=== PATIENT | male | born 1945 | race American Indian/Alaskan Native ===

== ENCOUNTER 2016-03-13 09:56 | Outpatient (CLI) | payer MEDICARE, OTHER ==
[2016-03-13 11:03] LABS: Calcium 8.7 mg/dL (8.4-10.2); Chloride 105.7 mmol/L (98-107); Potassium 5.4 mmol/L (3.6-5.0)
== END 2016-03-13 09:57 | disposition home or self-care (01) ==
LOC: LAB 09:56
PROVIDERS: ATTEND Internal Medicine Nephrology
DX: N17.9 Acute kidney failure, unspecified (principal); N28.1 Cyst of kidney, acquired; R94.4 Abnormal results of kidney function studies; R60.9 Edema, unspecified
CPT/HCPCS: 36415; 80048; 83930

== ENCOUNTER 2017-10-06 05:43 | Inpatient (IN) | payer MEDICARE, OTHER ==
[2017-10-06 08:54] LABS: Basophils % (Auto) 0.3 % (0.0-1.8); Eosinophils % (Auto) 0.5 % (0.0-4.3); Hemoglobin 13.9 gm/dl (11.8-15.2); Lymphocytes # (Auto) 0.4 K/mm3 (1.2-5.4); Lymphocytes % (Auto) 5.5 % (13.4-35.0); Mean Corpuscular HGB Conc 33 % (32-34); Mean Corpuscular Hemoglobin 32 pg (28-32); Mean Corpuscular Volume 97 fl (84-94); Monocytes # (Auto) 0.5 K/mm3 (0.0-0.8); Monocytes % (Auto) 7.5 % (0.0-7.3); Platelet Count 201 K/mm3 (140-440); Red Blood Count 4.32 M/mm3 (3.65-5.03); Red Cell Distribution Width 13.3 % (13.2-15.2)
[2017-10-06 09:20] LABS: BUN/Creatinine Ratio 16; Blood Urea Nitrogen 40 mg/dL (9-20); Calcium 9.8 mg/dL (8.4-10.2); Hemolysis Index 11
--- NOTE | 2017-10-06 11:08 | Emergency Department Report ---
HPI - General Chief Complaint: Chest Pain Time Seen by Provider: 10/06/17 10:44 - HPI HPI: Room 9 The patient is 72-year-old male presenting with the chief complaint pain and abdominal pain. The patient states he was in his usual state of health until yesterday began developing substernal chest pain described as twisting in nature and epigastric pain described as cramping. Patient states he also began noticing frequent output from his ileostomy (nonbloody). Patient is to nausea but denies vomiting. Patient denies any history of fever. The patient states he still has chest pain and gives a_of 2/10. 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 Oscar, Tracheostomy, AARDS, Ventilator, Sepsis - Surgical History Past Surgical History?: Yes Hx Appendectomy: Yes Additional Surgical History: Ileostomy, IVC filter - Family History Family history: no significant - Social History Smoking Status: Never Smoker Substance Use Type: None (denies illicit drug use) - Medications Home Medications: Home Medications Medication Instructions Recorded Confirmed Last Taken Type Calcitriol 1 tab PO DAILY 12/12/14 10/06/17 10/05/17 History Cholecalciferol (Vitamin D3) 1,000 unit PO DAILY 10/06/17 10/06/17 10/05/17 History [Vitamin D3] Multivitamin with Folic Acid [One 400 mcg PO DAILY 10/06/17 10/06/17 10/05/17 History Daily Multivitamin Tablet] Ranitidine HCl [Heartburn Relief] 150 mg PO BID 10/06/17 10/06/17 10/05/17 History Sodium Bicarbonate 650 mg PO BID 10/06/17 10/06/17 10/05/17 History ED Review of Systems ROS: Stated complaint: DIZZINESS/CHEST PAIN Other details as noted in HPI Constitutional: denies: fever Eyes: denies: eye pain ENT: denies: throat pain Respiratory: no symptoms reported Cardiovascular: chest pain Endocrine: unexplained weight loss (25 pound weight loss over 6 months) Gastrointestinal: abdominal pain, nausea, other (increased ileostomy output). denies: vomiting Genitourinary: denies: dysuria Musculoskeletal: denies: back pain Neurological: denies: headache Physical Exam - Physical Exam Vital Signs: Vital Signs 10/06/17 06:08 Temperature 98.5 F Pulse Rate 100 H Respiratory 20 Rate Blood Pressure 138/94 O2 Sat by Pulse 97 Oximetry Physical Exam: GENERAL: The patient is well-developed well-nourished male sitting on stretcher not appearing to be in acute distress. [] HEENT: Normocephalic. Atraumatic. Extraocular motions are intact. Patient has moist mucous membranes. NECK: Supple. Trachea midline CHEST/LUNGS: Clear to auscultation. There is no respiratory distress noted. HEART/CARDIOVASCULAR: Regular. There is no tachycardia. There is no gallop rub or murmur. ABDOMEN: Abdomen is soft, with discomfort to palpation in the suprapubic and left lower quadrant. Patient has hyperactive bowel sounds. There is no abdominal distention. SKIN: There is no rash. There is no edema. There is no diaphoresis. NEURO: The patient is awake, alert, and oriented. The patient is cooperative. The patient has normal speech MUSCULOSKELETAL: There is no evidence of acute injury. ED Course Vital Signs 10/06/17 06:08 Temperature 98.5 F Pulse Rate 100 H Respiratory 20 Rate Blood Pressure 138/94 O2 Sat by Pulse 97 Oximetry ED Medical Decision Making - Lab Data Result diagrams: 10/06/17 07:42 10/06/17 07:42 Laboratory Tests 10/06/17 10/06/17 10/06/17 07:42 07:42 09:28 WBC 6.8 RBC 4.32 Hgb 13.9 Hct 42.0 MCV 97 H MCH 32 MCHC 33 RDW 13.3 Plt Count 201 Lymph % (Auto) 5.5 L [place] % (Auto) 7.5 H Eos % (Auto) 0.5 Baso % (Auto) 0.3 Lymph # 0.4 L [place] # 0.5 Eos # 0.0 Baso # 0.0 Seg Neutrophils % 86.2 H Seg Neutrophils # 5.9 D-Dimer Sodium 141 Potassium 4.6 Chloride 103.8 Carbon Dioxide 18 L Anion Gap 24 BUN 40 H Creatinine 2.5 H Estimated GFR 31 BUN/Creatinine Ratio 16 Glucose 95 Calcium 9.8 Troponin T < 0.010 < 0.010 10/06/17 10/06/17 11:04 12:53 WBC RBC Hgb Hct MCV MCH MCHC RDW Plt Count Lymph % (Auto) [place] % (Auto) Eos % (Auto) Baso % (Auto) Lymph # [place] # Eos # Baso # Seg Neutrophils % Seg Neutrophils # D-Dimer 600.73 H Sodium Potassium Chloride Carbon Dioxide Anion Gap BUN Creatinine Estimated GFR BUN/Creatinine Ratio Glucose Calcium Troponin T < 0.010 - EKG Data -: EKG Interpreted by Mn EKG shows normal: sinus rhythm Rate: normal (100 bpm) - EKG Data When compared to previous EKG there are: previous EKG unavailable Interpretation: nonspecific ST-T wave radha (T-wave inversion in lead aVL) - Radiology Data Radiology results: report reviewed (CT abdomen and pelvis, CT chest, VQ scan), image reviewed (CT abdomen and pelvis, CT chest, VQ scan) [place] [id number] Cat Scan Report Signed Patient: BALDMEAR MURPHY MR#: [id number] : 1945 Acct:[id number] Age/Sex: 72 / M ADM Date: 10/06/17 Loc: ED Attending Dr: Ordering Physician: RONNI AMATO MD Date of Service: 10/06/17 Procedure(s): CT chest wo con Accession Number(s): [id number] cc: RONNI AMATO MD CT CHEST WITHOUT CONTRAST: HISTORY: Chest pain, ascending aortic aneurysm. COMPARISON: none. TECHNIQUE: Helical CT in 1.25mm intervals without IV contrast. Sagittal and coronal reformatted images. FINDINGS: Thyroid gland: Normal. Tracheobronchial tree: Normal. Esophagus: Normal. Heart: Normal. Pericardium: Normal. Mediastinum : The ascending aorta measures up to 3.9 cm in diameter. The descending thoracic aorta measures 3.1 cm at the same level. The aortic arch measures 3.4 cm. There are mild diffuse aortic calcifications. No evidence for mediastinal mass or adenopathy. Lung Green: Within normal limits. Pleural Spaces: Normal. Musculoskeletal: Mild thoracic spondylosis. IMPRESSION: No acute cardiopulmonary process. The ascending aorta measures 3.9 cm in diameter. Transcribed By: TTR Dictated By: ISABEL HILARIO JR, MD Electronically Authenticated By: ISABEL HILARIO JR, MD Signed Date/Time: 10/06/171146 DD/ 44 TD/TT: 10/06/17 114 [facility] [address] [place] [address] Cat Scan Report Signed Patient: BALDEMAR MURPHY MR#: [id number] : 1945 Acct:[id number] Age/Sex: 72 / M ADM Date: 10/06/17 Loc: ED Attending Dr: Ordering Physician: RONNI AMATO MD Date of Service: 10/06/17 Procedure(s): CT abdomen pelvis wo con Accession Number(s): [id number] cc: RONNI AMATO MD CT ABDOMEN PELVIS WITHOUT CONTRAST: HISTORY: Epigastric pain, increased ileostomy output. COMPARISON: none. TECHNIQUE: Helical CT in 1.25mm intervals without IV contrast. Sagittal and coronal reconstructions. FINDINGS: Liver: Normal. Biliary system: Normal. Pancreas: Normal. Spleen: Normal. Kidneys/ureters/ bladder: Both kidneys are slightly atrophic measuring 8-9 cm in length. A 5 cm exophytic cyst from this inferior pole of the right kidney is noted. No evidence for calculus or hydronephrosis. The ureters and bladder are unremarkable. Adrenal glands: Normal. Aorta: Mild diffuse calcifications. An IVC filter is noted below the renal veins. Intestines: Limited without oral contrast. Colectomy changes with left lower quadrant ileostomy are suspected. No evidence for bowel obstruction or focal inflammation. There is a small right inguinal hernia containing a short segment of small bowel but no evidence for obstruction or inflammation. Appendix: Not identified. Pelvic viscera: Normal. Ascites: None. Adenopathy: None. Musculoskeletal: Moderate thoracolumbar spondylosis. Mild levoscoliosis of the lumbar region. Previous ventral wall hernia repair changes are identified. No recurrent hernia is appreciated in this area. IMPRESSION: No acute abdominal process is identified. Surgical changes as described. Small right inguinal hernia containing a short segment of small bowel. Mild renal atrophy. Right renal cyst. Transcribed By: TTR Dictated By: ISABEL HILARIO JR, MD Electronically Authenticated By: ISABEL HILARIO JR, MD Signed Date/Time: 10/06/17 1151 DD/ 1148 TD/TT: 10/06/17 1151 [facility] [address] [place] [address] Nuclear Medicine Report Signed Patient: BALDEMAR MURPHY MR#: [id number] : 05/1945 Acct:[id number] Age/Sex: 72 / M ADM Date: 10/06/17 Loc: ED Attending Dr: Ordering Physician: RONNI AMATO MD Date of Service: 10/06/17 Procedure(s): NM lung scan perf/vent Accession Number(s): [id number] cc: RONNI AMATO MD LUNG SCAN, VENTILATION AND PERFUSION: History: Chest pain. Technique: 5mci of Tc99m MAA was infused for the perfusion images. 15mci XE 133 gas was inhaled for the ventilatory images. Correlation is made with a chest x-ray dated 10/06/17. Findings: Inhalation of Xenon gas demonstrates a normal distribution of the activity throughout both lungs. The wash out phases show no focal retention of activity. After injection of Technetium 99m macroaggregated albumin gamma camera imaging of the lungs in multiple projections demonstrates normal pulmonary contours with a homogeneous distribution of activity. No focal areas of perfusion deficiency are identified. IMPRESSION: Low probability for pulmonary embolus. Transcribed By: TTR Dictated By: ISABEL HILARIO JR, MD Electronically Authenticated By: ISABEL HILARIO JR, MD Signed Date/Time: 1345 DD/ 1344 TD/TT: 10/06/17 1345 - Differential Diagnosis gastritis, ACS, pericarditis, GERD Critical care attestation.: If time is entered above; I have spent that time in minutes in the direct care of this critically ill patient, excluding procedure time. ED Disposition Clinical Impression: Chest pain, Increased ileostomy output, Abdominal pain Disposition: DC-09 OP ADMIT IP TO THIS HOSP Is pt being admited?: Yes Does the pt Need Aspirin: Yes Condition: Fair Instructions: Chest Pain (ED) Referrals: PRIMARY CARE,MD [Primary Care Provider] - 3-5 Days Time of Disposition: 14:10 (hospitalist paged (Dr Brown))
--- NOTE | 2017-10-06 11:54 | Cat Scan Report ---
CT CHEST WITHOUT CONTRAST: HISTORY: Chest pain, ascending aortic aneurysm. COMPARISON: none. TECHNIQUE: Helical CT in 1.25mm intervals without IV contrast. Sagittal and coronal reformatted images. FINDINGS: Thyroid gland: Normal. Tracheobronchial tree: Normal. Esophagus: Normal. Heart: Normal. Pericardium: Normal. Mediastinum: The ascending aorta measures up to 3.9 cm in diameter. The descending thoracic aorta measures 3.1 cm at the same level. The aortic arch measures 3.4 cm. There are mild diffuse aortic calcifications. No evidence for mediastinal mass or adenopathy. Lung Green: Within normal limits. Pleural Spaces: Normal. Musculoskeletal: Mild thoracic spondylosis. IMPRESSION: No acute cardiopulmonary process. The ascending aorta measures 3.9 cm in diameter.
--- NOTE | 2017-10-06 11:58 | Cat Scan Report ---
CT ABDOMEN PELVIS WITHOUT CONTRAST: HISTORY: Epigastric pain, increased ileostomy output. COMPARISON: none. TECHNIQUE: Helical CT in 1.25mm intervals without IV contrast. Sagittal and coronal reconstructions. FINDINGS: Liver: Normal. Biliary system: Normal. Pancreas: Normal. Spleen: Normal. Kidneys/ureters/bladder: Both kidneys are slightly atrophic measuring 8-9 cm in length. A 5 cm exophytic cyst from this inferior pole of the right kidney is noted. No evidence for calculus or hydronephrosis. The ureters and bladder are unremarkable. Adrenal glands: Normal. Aorta: Mild diffuse calcifications. An IVC filter is noted below the renal veins. Intestines: Limited without oral contrast. Colectomy changes with left lower quadrant ileostomy are suspected. No evidence for bowel obstruction or focal inflammation. There is a small right inguinal hernia containing a short segment of small bowel but no evidence for obstruction or inflammation. Appendix: Not identified. Pelvic viscera: Normal. Ascites: None. Adenopathy: None. Musculoskeletal: Moderate thoracolumbar spondylosis. Mild levoscoliosis of the lumbar region. Previous ventral wall hernia repair changes are identified. No recurrent hernia is appreciated in this area. IMPRESSION: No acute abdominal process is identified. Surgical changes as described. Small right inguinal hernia containing a short segment of small bowel. Mild renal atrophy. Right renal cyst.
--- NOTE | 2017-10-06 12:59 | XRay Report ---
AP CHEST: HISTORY: chest pain AP view of the chest demonstrates a normal mediastinal and cardiac contour with clear lungs and normal bony and soft tissue structures. IMPRESSION: No acute cardiopulmonary process.
--- NOTE | 2017-10-06 13:51 | Nuclear Medicine Report ---
LUNG SCAN, VENTILATION AND PERFUSION: History: Chest pain. Technique: 5mci of Tc99m MAA was infused for the perfusion images. 15mci XE 133 gas was inhaled for the ventilatory images. Correlation is made with a chest x-ray dated 10/06/17. Findings: Inhalation of Xenon gas demonstrates a normal distribution of the activity throughout both lungs. The wash out phases show no focal retention of activity. After injection of Technetium 99m macroaggregated albumin gamma camera imaging of the lungs in multiple projections demonstrates normal pulmonary contours with a homogeneous distribution of activity. No focal areas of perfusion deficiency are identified. IMPRESSION: Low probability for pulmonary embolus.
[2017-10-06] MEDS ORDERED: PLAVIX PO ONE (14:13)
[2017-10-06] MEDS: NACL 0.9% 1000 ML 1,000 ML IV SCH (16:05)
[2017-10-06] MEDS ORDERED: PERCOCET 5/325 PO PRN (19:49)
[2017-10-06] MEDS ORDERED: MORPHINE IV PRN (19:49)
[2017-10-06] MEDS ORDERED: SODIUM CHLORIDE FLUSH SYRINGE 10 ML IV PRN (19:49)
[2017-10-06] MEDS ORDERED: ZOFRAN IV PRN (19:49)
--- NOTE | 2017-10-06 19:49 | History and Physical Report ---
History of Present Illness Date of examination: 10/06/17 Medications and Allergies Allergies Allergy/AdvReac Type Severity Reaction Status Date / Time gabapentin Allergy Rash Verified 12/12/14 16:07 pregabalin [From Lyrica] Allergy Rash Verified 12/12/14 16:07 soy Allergy Unknown Verified 02/19/16 11:03 Iodinated Contrast- Oral and AdvReac Swelling Verified 12/12/14 16:35 IV Dye [Iodinated Contrast Media - IV Dye] Home Medications Medication Instructions Recorded Confirmed Last Taken Type Calcitriol 1 tab PO DAILY 12/12/14 10/06/17 10/05/17 History Cholecalciferol (Vitamin D3) 1,000 unit PO DAILY 10/06/17 10/06/17 10/05/17 History [Vitamin D3] Multivitamin with Folic Acid [One 400 mcg PO DAILY 10/06/17 10/06/17 10/05/17 History Daily Multivitamin Tablet] Ranitidine HCl [Heartburn Relief] 150 mg PO BID 10/06/17 10/06/17 10/05/17 History Sodium Bicarbonate 650 mg PO BID 10/06/17 10/06/17 10/05/17 History Active Meds: Active Medications Sodium Chloride (Nacl 0.9% 1000 Ml) 1,000 mls @ 100 mls/hr IV DIRECT MIMI Last Admin: 10/06/17 16:05 Dose: 100 mls/hr Exam - Constitutional Vitals: Temp Pulse Resp BP Pulse Ox 98.5 F 75 18 176/109 97 10/06/17 06:08 10/06/17 18:00 10/06/17 18:00 10/06/17 18:00 10/06/17 18:00 Results - Labs CBC & Chem 7: 10/06/17 07:42 10/06/17 07:42 Labs: Laboratory Last Values WBC 6.8 K/mm3 (4.5-11.0) 10/06/17 07:42 RBC 4.32 M/mm3 (3.65-5.03) 10/06/17 07:42 Hgb 13.9 gm/dl (11.8-15.2) 10/06/17 07:42 Hct 42.0 % (35.5-45.6) 10/06/17 07:42 MCV 97 fl (84-94) H 10/06/17 07:42 MCH 32 pg (28-32) 10/06/17 07:42 MCHC 33 % (32-34) 10/06/17 07:42 RDW 13.3 % (13.2-15.2) 10/06/17 07:42 Plt Count 201 K/mm3 (140-440) 10/06/17 07:42 Lymph % (Auto) 5.5 % (13.4-35.0) L 10/06/17 07:42 [place] % (Auto) 7.5 % (0.0-7.3) H 10/06/17 07:42 Eos % (Auto) 0.5 % (0.0-4.3) 10/06/17 07:42 Baso % (Auto) 0.3 % (0.0-1.8) 10/06/17 07:42 Lymph # 0.4 K/mm3 (1.2-5.4) L 10/06/17 07:42 [place] # 0.5 K/mm3 (0.0-0.8) 10/06/17 07:42 Eos # 0.0 K/mm3 (0.0-0.4) 10/06/17 07:42 Baso # 0.0 K/mm3 (0.0-0.1) 10/06/17 07:42 Seg Neutrophils % 86.2 % (40.0-70.0) H 10/06/17 07:42 Seg Neutrophils # 5.9 K/mm3 (1.8-7.7) 10/06/17 07:42 D-Dimer 600.73 ng/mlDDU (0-234) H 10/06/17 11:04 Sodium 141 mmol/L (137-145) 10/06/17 07:42 Potassium 4.6 mmol/L (3.6-5.0) 10/06/17 07:42 Chloride 103.8 mmol/L (98-107) 10/06/17 07:42 Carbon Dioxide 18 mmol/L (22-30) L 10/06/17 07:42 Anion Gap 24 mmol/L 10/06/17 07:42 BUN 40 mg/dL (9-20) H 10/06/17 07:42 Creatinine 2.5 mg/dL (0.8-1.5) H 10/06/17 07:42 Estimated GFR 31 ml/min 10/06/17 07:42 BUN/Creatinine Ratio 16 % 10/06/17 07:42 Glucose 95 mg/dL (75-100) 10/06/17 07:42 Calcium 9.8 mg/dL (8.4-10.2) 10/06/17 07:42 Troponin T < 0.010 ng/mL (0.00-0.029) 10/06/17 12:53
[2017-10-06] MEDS: LIORESAL PO SCH (21:20)
[2017-10-06] MEDS ORDERED: PEPCID PO SCH (22:00)
[2017-10-06] MEDS: SODIUM CHLORIDE FLUSH SYRINGE 10 ML IV SCH (22:16)
[2017-10-07] MEDS: NACL 0.9% 1000 ML 1,000 ML IV SCH (05:25)
[2017-10-07 05:33] LABS: Hematocrit 39.5 % (35.5-45.6); Hemoglobin 13.2 gm/dl (11.8-15.2); Mean Corpuscular HGB Conc 33 % (32-34); Mean Corpuscular Hemoglobin 32 pg (28-32); Mean Corpuscular Volume 97 fl (84-94); Platelet Count 166 K/mm3 (140-440); Red Blood Count 4.09 M/mm3 (3.65-5.03); Red Cell Distribution Width 13.3 % (13.2-15.2)
[2017-10-07 06:16] LABS: Albumin 4.1 g/dL (3.9-5); Calcium 9.3 mg/dL (8.4-10.2)
--- NOTE | 2017-10-07 06:48 | Event Note ---
Date: 10/06/17 See Dictated H/pin reports Chest pain r/o LA protocol High output in Ileostomy bag Acute on CKD
[2017-10-07] MEDS: LIORESAL PO SCH ×3 (08:00→21:08)
--- NOTE | 2017-10-07 09:00 | Gastroenterology Consultation ---
<PUMA FLORES - Last Filed: 10/07/17 09:24> History of Present Illness - Reason for Consult Consult date: 10/07/17 high output ileostomy Requesting physician: TORREY JOINER - History of Present Illness Patient is a 72 y/o male with PMH of HTN, MA (), DVT (s/p IVC filter), GERD , CKD, arthritis, and COPD who presented to ED yesterday with c/o substernal CP described as twisting in nature and epigastric pain described as cramping, along with some nausea and increased non-bloody output from his ileostomy x [address] chest negative for PE. Cardiac enzymes negative. Stress test planned for tomorrow. Abd CT negative for obstruction or inflammation. This morning patient was resting in bed w/o acute distress. He reports feeling better with CP , epigastric pain, and nausea now resolved. No vomiting. Tolerated diet yesterday afternoon. Still has increased output (greenish non-bloody) from ileostomy but seems to be decreasing as well. He states he underwent a total colectomy by Dr. Russell in 1998 due to hx of UC with revision in 2006 (ischemic bowel? and 2012. Also has a hx of GERD on ranitidine at home. Last EGD a couple of months ago at [facility] per patient with results showing no ulcer or H pylori. Denies fever, wt loss, SOB, dizziness, dysphagia, odynophagia, or signs of bleeding. No recent abx therapy, travel, or ill contacts. Past History Past Medical History: arthritis, CAD, COPD, GERD, hypertension, other (DVT, CKD ) Past Surgical History: appendectomy, bowel surgery (total colectomy with ileostomy (revision 2006 & 2012), IVC filter) Social history: denies: smoking, alcohol abuse, IV drug use Family history: no significant family history Medications and Allergies Allergies Allergy/AdvReac Type Severity Reaction Status Date / Time gabapentin Allergy Rash Verified 12/12/14 16:07 pregabalin [From Lyrica] Allergy Rash Verified 12/12/14 16:07 soy Allergy Unknown Verified 02/19/16 11:03 Iodinated Contrast- Oral and AdvReac Swelling Verified 12/12/14 16:35 IV Dye [Iodinated Contrast Media - IV Dye] Home Medications Medication Instructions Recorded Confirmed Last Taken Type Calcitriol 1 tab PO DAILY 12/12/14 10/06/17 10/05/17 History Cholecalciferol (Vitamin D3) 1,000 unit PO DAILY 10/06/17 10/06/17 10/05/17 History [Vitamin D3] Multivitamin with Folic Acid [One 400 mcg PO DAILY 10/06/17 10/06/17 10/05/17 History Daily Multivitamin Tablet] Ranitidine HCl [Heartburn Relief] 150 mg PO BID 10/06/17 10/06/17 10/05/17 History Sodium Bicarbonate 650 mg PO BID 10/06/17 10/06/17 10/05/17 History Active Meds: Active Medications Acetaminophen (Tylenol) 650 mg PO Q4H PRN PRN Reason: Pain MILD(1-3)/Fever >100.5/ROSS Baclofen (Lioresal) 10 mg PO TID [facility] Last Admin: 10/06/17 21:20 Dose: Not Given Calcitriol (Rocaltrol) 0.25 mcg PO DAILY [facility] Enoxaparin Sodium (Lovenox) 30 mg SUB-Q QDAY [facility] Famotidine (Pepcid) 20 mg PO QDAY [facility] Famotidine (Pepcid) 20 mg PO BID [facility] Sodium Chloride (Nacl 0.9% 1000 Ml) 1,000 mls @ 100 mls/hr IV DIRECT [facility] Last Admin: 10/07/17 05:25 Dose: 100 mls/hr Morphine Sulfate (Morphine) 2 mg IV Q4H PRN PRN Reason: Pain, Moderate (4-6) Ondansetron HCl (Zofran) 4 mg IV Q8H PRN PRN Reason: Nausea And Vomiting Oxycodone/Acetaminophen (Percocet 5/325) 1 tab PO Q6H PRN PRN Reason: Pain, Moderate (4-6) Last Admin: 10/06/17 22:05 Dose: 1 tab Sodium Bicarbonate (Sodium Bicarbonate) 650 mg PO BID [facility] Sodium Chloride (Sodium Chloride Flush Syringe 10 Ml) 10 ml IV BID [facility] Last Admin: 10/06/17 22:16 Dose: 10 ml Sodium Chloride (Sodium Chloride Flush Syringe 10 Ml) 10 ml IV PRN PRN PRN Reason: LINE FLUSH Review of Systems - Review of Systems All systems: negative Cardiovascular: chest pain Gastrointestinal: abdominal pain, nausea, other (increased ileostomy output) Exam - Constitutional Vital Signs: Temp Pulse Resp BP Pulse Ox 98.5 F 64 20 136/97 97 10/07/17 07:30 10/07/17 07:30 10/07/17 07:30 10/07/17 07:30 10/07/17 07:30 General appearance: no acute distress - EENT Eyes: PERRL, EOM intact ENT: hearing intact - Respiratory Respiratory: bilateral: CTA - Cardiovascular Rhythm: regular Heart Sounds: Present: S1 & S2 - Gastrointestinal General gastrointestinal: Present: soft, non-tender, non-distended, normal bowel sounds, other (+ ileostomy, + scars from previous surgeries) - Neurologic Neurological: alert and oriented x3 - Labs CBC & Chem 7: 10/07/17 04:23 10/07/17 04:23 Lab Results: Laboratory Results - last 24 hr 10/06/17 10/06/17 10/06/17 07:42 09:28 11:04 WBC RBC Hgb Hct MCV MCH MCHC RDW Plt Count Worth % (Auto) D-Dimer 600.73 H Sodium 141 Potassium 4.6 Chloride 103.8 Carbon Dioxide 18 L Anion Gap 24 BUN 40 H Creatinine 2.5 H Estimated GFR 31 BUN/Creatinine Ratio 16 Glucose 95 Hemoglobin A1c Calcium 9.8 Total Bilirubin AST ALT Alkaline Phosphatase Troponin T < 0.010 < 0.010 Total Protein Albumin Albumin/Globulin Ratio 10/06/17 10/06/17 10/06/17 12:53 20:16 20:16 WBC RBC Hgb Hct MCV MCH MCHC RDW Plt Count [place] % (Auto) D-Dimer Sodium Potassium Chloride Carbon Dioxide Anion Gap BUN Creatinine Estimated GFR BUN/Creatinine Ratio Glucose Hemoglobin A1c 5.3 Calcium Total Bilirubin AST ALT Alkaline Phosphatase Troponin T < 0.010 < 0.010 Total Protein Albumin Albumin/Globulin Ratio 10/07/17 10/07/17 10/07/17 01:38 04:23 04:23 WBC 3.9 L RBC 4.09 Hgb 13.2 Hct 39.5 MCV 97 H MCH 32 MCHC 33 RDW 13.3 Plt Count 166 Worth % (Auto) Professor Of Kinesiology D-Dimer Sodium 139 Potassium 4.4 Chloride 107.9 H Carbon Dioxide 16 L Anion Gap 20 BUN 41 H Creatinine 2.4 H Estimated GFR 32 BUN/Creatinine Ratio 17 Glucose 80 Hemoglobin A1c Calcium 9.3 Total Bilirubin 0.80 AST 25 ALT 19 Alkaline Phosphatase 103 Troponin T < 0.010 Total Protein 7.6 Albumin 4.1 Albumin/Globulin Ratio 1.2 Assessment and Plan 1.increased ileostomy output 2.epigastric pain 3.nausea 4.CP- CT chest negative, stress test pending for tomorrow -afebrile -WBC 3.9 -abd CT negative for obstruction or inflammation -etiology- most likely 2/2 gastroenteritis -will order stool studies to r/o infection -clinically patient is feeling better with with epigastric pain and nausea now resolved. Increased non-bloody output from ileostomy still present but starting to decrease -okay to resume diet -monitor ileostomy output -continue pepcid and supportive care -will follow <MOIRA MICHELLE - Last Filed: 10/07/17 12:41> Medications and Allergies Active Meds: Active Medications Acetaminophen (Tylenol) 650 mg PO Q4H PRN PRN Reason: Pain MILD(1-3)/Fever >100.5/ROSS Baclofen (Lioresal) 10 mg PO TID [facility] Last Admin: 10/07/17 08:00 Dose: Not Given Calcitriol (Rocaltrol) 0.25 mcg PO DAILY [facility] Last Admin: 10/07/17 10:29 Dose: Not Given Enoxaparin Sodium (Lovenox) 30 mg SUB-Q QDAY [facility] Last Admin: 10/07/17 09:53 Dose: Not Given Famotidine (Pepcid) 20 mg PO QDAY [facility] Last Admin: 10/07/17 10:28 Dose: Not Given Famotidine (Pepcid) 20 mg PO BID [facility] Last Admin: 10/07/17 10:29 Dose: Not Given Morphine Sulfate (Morphine) 2 mg IV Q4H PRN PRN Reason: Pain, Moderate (4-6) Ondansetron HCl (Zofran) 4 mg IV Q8H PRN PRN Reason: Nausea And Vomiting Oxycodone/Acetaminophen (Percocet 5/325) 1 tab PO Q6H PRN PRN Reason: Pain, Moderate (4-6) Last Admin: 10/06/17 22:05 Dose: 1 tab Sodium Bicarbonate (Sodium Bicarbonate) 650 mg PO BID [facility] Last Admin: 10/07/17 10:29 Dose: Not Given Sodium Chloride (Sodium Chloride Flush Syringe 10 Ml) 10 ml IV BID [facility] Last Admin: 10/07/17 10:29 Dose: Not Given Sodium Chloride (Sodium Chloride Flush Syringe 10 Ml) 10 ml IV PRN PRN PRN Reason: LINE FLUSH Exam - Constitutional Vital Signs: Temp Pulse Resp BP Pulse Ox 97.9 F 86 22 138/90 97 10/07/17 12:20 10/07/17 12:20 10/07/17 12:20 10/07/17 12:20 10/07/17 07:30 - Labs CBC & Chem 7: 10/07/17 04:23 10/07/17 04:23 Lab Results: Laboratory Results - last 24 hr 10/06/17 10/06/17 10/06/17 12:53 20:16 20:16 WBC RBC Hgb Hct MCV MCH MCHC RDW Plt Count Worth % (Auto) Add Manual Diff Total Counted Seg Neuts % (Manual) Band Neutrophils % Lymphocytes % (Manual) Reactive Lymphs % (Man) Monocytes % (Manual) Eosinophils % (Manual) Basophils % (Manual) Metamyelocytes % Myelocytes % Promyelocytes % Blast Cells % Nucleated RBC % Seg Neutrophils # Man Band Neutrophils # Lymphocytes # (Manual) Abs React Lymphs (Man) Monocytes # (Manual) Eosinophils # (Manual) Basophils # (Manual) Metamyelocytes # Myelocytes # Promyelocytes # Blast Cells # WBC Morphology Hypersegmented Neuts Hyposegmented Neuts Hypogranular Neuts Smudge Cells Toxic Granulation Toxic Vacuolation Dohle Bodies Pelger-Huet Anomaly Jose C Rods Platelet Estimate Clumped Platelets Plt Clumps, EDTA Large Platelets Giant Platelets Platelet Satelliting Plt Morphology Comment RBC Morphology Dimorphic RBCs Polychromasia Hypochromasia Poikilocytosis Anisocytosis Microcytosis Macrocytosis Spherocytes Pappenheimer Bodies Sickle Cells Target Cells Tear Drop Cells Ovalocytes Helmet Cells Juares-Fall[place] Bodies [place] Rings Heidy Cells Bite Cells Crenated Cell Elliptocytes Acanthocytes (Spur) Rouleaux Hemoglobin C Crystals Schistocytes Malaria parasites Tigre Bodies Hem Pathologist Commnt Sodium Potassium Chloride Carbon Dioxide Anion Gap BUN Creatinine Estimated GFR BUN/Creatinine Ratio Glucose Hemoglobin A1c 5.3 Calcium Total Bilirubin AST ALT Alkaline Phosphatase Troponin T < 0.010 < 0.010 Total Protein Albumin Albumin/Globulin Ratio Urine Color Urine Turbidity Urine pH Ur Specific [place] Urine Protein Urine Glucose (UA) Urine Ketones Urine Blood Urine Nitrite Urine Bilirubin Urine Urobilinogen Ur Leukocyte Esterase Urine WBC (Auto) Urine RBC (Auto) Granular Casts Urine Mucus Urine Creatinine Urine Sodium Urine Total Protein 10/07/17 10/07/17 10/07/17 01:38 04:23 04:23 WBC 3.9 L RBC 4.09 Hgb 13.2 Hct 39.5 MCV 97 H MCH 32 MCHC 33 RDW 13.3 Plt Count 166 Worth % (Auto) Professor Of Kinesiology Add Manual Diff Complete Total Counted 100 Seg Neuts % (Manual) 59.0 Band Neutrophils % 1.0 Lymphocytes % (Manual) 19.0 Reactive Lymphs % (Man) 1.0 Monocytes % (Manual) 15.0 H Eosinophils % (Manual) 4.0 Basophils % (Manual) 1.0 Metamyelocytes % 0 Myelocytes % 0 Promyelocytes % 0 Blast Cells % 0 Nucleated RBC % Not Reportable Seg Neutrophils # Man 2.3 Band Neutrophils # 0.0 Lymphocytes # (Manual) 0.7 L Abs React Lymphs (Man) 0.0 Monocytes # (Manual) 0.6 Eosinophils # (Manual) 0.2 Basophils # (Manual) 0.0 Metamyelocytes # 0.0 Myelocytes # 0.0 Promyelocytes # 0.0 Blast Cells # 0.0 WBC Morphology Not Reportable Hypersegmented Neuts Not Reportable Hyposegmented Neuts Not Reportable Hypogranular Neuts Not Reportable Smudge Cells Not Reportable Toxic Granulation Not Reportable Toxic Vacuolation Not Reportable Dohle Bodies Not Reportable Pelger-Huet Anomaly Not Reportable Jose C Rods Not Reportable Platelet Estimate Consistent w auto Clumped Platelets Not Reportable Plt Clumps, EDTA Not Reportable Large Platelets Not Reportable Giant Platelets Not Reportable Platelet Satelliting Not Reportable Plt Morphology Comment Not Reportable RBC Morphology Normal Dimorphic RBCs Not Reportable Polychromasia Not Reportable Hypochromasia Not Reportable Poikilocytosis Not Reportable Anisocytosis Not Reportable Microcytosis Not Reportable Macrocytosis Not Reportable Spherocytes Not Reportable Pappenheimer Bodies Not Reportable Sickle Cells Not Reportable Target Cells Not Reportable Tear Drop Cells Not Reportable Ovalocytes Not Reportable Helmet Cells Not Reportable Juares-[place] Bodies Not Reportable [place] Rings Not Reportable Heidy Cells Not Reportable Bite Cells Not Reportable Crenated Cell Not Reportable Elliptocytes Not Reportable Acanthocytes (Spur) Not Reportable Rouleaux Not Reportable Hemoglobin C Crystals Not Reportable Schistocytes Not Reportable Malaria parasites Not Reportable Tigre Bodies Not Reportable Hem Pathologist Commnt No Sodium 139 Potassium 4.4 Chloride 107.9 H Carbon Dioxide 16 L Anion Gap 20 BUN 41 H Creatinine 2.4 H Estimated GFR 32 BUN/Creatinine Ratio 17 Glucose 80 Hemoglobin A1c Calcium 9.3 Total Bilirubin 0.80 AST 25 ALT 19 Alkaline Phosphatase 103 Troponin T < 0.010 Total Protein 7.6 Albumin 4.1 Albumin/Globulin Ratio 1.2 Urine Color Urine Turbidity Urine pH Ur Specific [place] Urine Protein Urine Glucose (UA) Urine Ketones Urine Blood Urine Nitrite Urine Bilirubin Urine Urobilinogen Ur Leukocyte Esterase Urine WBC (Auto) Urine RBC (Auto) Granular Casts Urine Mucus Urine Creatinine Urine Sodium Urine Total Protein 10/07/17 10/07/17 10/07/17 09:16 10:19 10:19 WBC RBC Hgb Hct MCV MCH MCHC RDW Plt Count [place] % (Auto) Add Manual Diff Total Counted Seg Neuts % (Manual) Band Neutrophils % Lymphocytes % (Manual) Reactive Lymphs % (Man) Monocytes % (Manual) Eosinophils % (Manual) Basophils % (Manual) Metamyelocytes % Myelocytes % Promyelocytes % Blast Cells % Nucleated RBC % Seg Neutrophils # Man Band Neutrophils # Lymphocytes # (Manual) Abs React Lymphs (Man) Monocytes # (Manual) Eosinophils # (Manual) Basophils # (Manual) Metamyelocytes # Myelocytes # Promyelocytes # Blast Cells # WBC Morphology Hypersegmented Neuts Hyposegmented Neuts Hypogranular Neuts Smudge Cells Toxic Granulation Toxic Vacuolation Dohle Bodies Pelger-Huet Anomaly Jose C Rods Platelet Estimate Clumped Platelets Plt Clumps, EDTA Large Platelets Giant Platelets Platelet Satelliting Plt Morphology Comment RBC Morphology Dimorphic RBCs Polychromasia Hypochromasia Poikilocytosis Anisocytosis Microcytosis Macrocytosis Spherocytes Pappenheimer Bodies Sickle Cells Target Cells Tear Drop Cells Ovalocytes Helmet Cells Juares-Fallon Bodies [place] Rings Heidy Cells Bite Cells Crenated Cell Elliptocytes Acanthocytes (Spur) Rouleaux Hemoglobin C Crystals Schistocytes Malaria parasites Tigre Bodies Hem Pathologist Commnt Sodium Potassium Chloride Carbon Dioxide Anion Gap BUN Creatinine Estimated GFR BUN/Creatinine Ratio Glucose Hemoglobin A1c Calcium Total Bilirubin AST ALT Alkaline Phosphatase Troponin T < 0.010 Total Protein Albumin Albumin/Globulin Ratio Urine Color Yellow Urine Turbidity Clear Urine pH 5.0 Ur Specific [place] 1.017 Urine Protein 100 mg/dl Urine Glucose (UA) Neg Urine Ketones Neg Urine Blood Sm Urine Nitrite Neg Urine Bilirubin Neg Urine Urobilinogen < 2.0 Ur Leukocyte Esterase Neg Urine WBC (Auto) 1.0 Urine RBC (Auto) < 1.0 Granular Casts 4 Urine Mucus Few Urine Creatinine 136.4 H Urine Sodium 82 Urine Total Protein 178 H Assessment and Plan - Patient Problems (1) Increased ileostomy output Current Visit: Yes Status: Acute Plan to address problem: The patient was seen and examined. I suspect an acute gastroenteritis. Await stool studies. If stool studies negative, may add anti diarrheal medications.
--- NOTE | 2017-10-07 09:26 | Consultation ---
History of Present Illness - History of Present Illness Thank you for the consultation ! History of present illness: Patient is a 72-year-old -Portuguese male who is currently established our clinic for his chronic kidney disease care and was last seen in April 2017 when his creatinine was around 2.5, previously his creatinine used to be a 4.6 in January 2016 however with ongoing care he has been doing well. Patient also suffers from frequent. On 400 mg vitamin D deficiency secondary hyperparathyroidism as well as anemia and chronic kidney disease which has improved over time Currently he has been admitted here with high output ileostomy difficult. Metabolic acidosis requiring renal consultation, patient denies using any follow -up anti-inflammatory drug he was told by his be a inside sales advisor separately that his kidney failure could be due to interstitial nephritis but no biopsy was planned he also concurrently suffers from metabolic acidosis chronic intermittent hyponatremia also has a renal cyst and hyperuricemia Past medical history significant for chronic kidney disease stage III anemia and chronic kidney disease, currently in remission Proteinuria under 500 mg Vitamin D deficiency secondary hyperparathyroidism last PTH 86 Hyperkalemia Hyponatremia Chronic metabolic acidosis Cyst of the kidney Hyperuricemia Current allergies: Seafood Iodine Lyrica Medications: Reviewed Social history: Reviewed Family history: Reviewed Review of system: Positive for high output ileostomy since last 3-4 days Abdominal pain All other review of systems negative Physical examination General: No acute distress HEENT: Oral mucosa dry no pharyngeal erythema no nasal bleeding Neck: Supple no evidence of any jugular venous distention no masses Chest: Clear to auscultation anteriorly and posteriorly Heart: Regular rate and rhythm S1 and S2 heard no S3-S4 or any pericardial rub Abdomen: Soft nontender bowel sounds present no renal bruit no suprapubic masses no CVA tenderness, has ileostomy in place Extremity: Dry skin less than 1+ edema no peripheral petechial rashes Endocrine: Thyroid not enlarged Psychiatric: No evidence of any agitation or aggression noted Musculoskeletal: No joint effusion noted Lab studies and pertinent imagings were reviewed My assessment and plan are as follows Patient was evaluated today around 9:30 in the morning my assessment and plan are as follows Chronic kidney disease: Patient's creatinine was around 2.8-3.0 even in 2015 Renal failure of moderate severity in a patient who is 72-year-old and has some risk factors for underlying chronic kidney disease clinically appears to be prerenal Will order for workup urine as well as blood work as well as a renal ultrasound, hydration for now and follow patient was having increased output from the ileostomy, he will need hydration as tolerated Chest pain currently being ruled out for myocardial infarction High output ileostomy: GI following monitor electrolytes phosphorus etc. Metabolic acidosis that requires correction to a bicarbonate of about 20-24 patient will need bicarbonate infusion, this most likely was resulting from GI losses CT scan of the abdomen pelvis obtained October 06 inguinal hernia with a short segment of small bowel adrenal gland reported normal, Multiple underlying comorbidities including hypertension, [place] 1979, DVT, GERD, chronic kidney disease, arthritis, COPD Status post colectomy total in 1998 due to ulcerative colitis with revision in 2006 in 2012 Renal prognosis guarded at this time Patient was adequately counseled and educated regarding all the renal related issues Renal prognosis remains guarded at this time to follow, necessary labs and imagings will be honored as indicated by the clinical course We'll continue to follow and make recommendation from renal standpoint Thank you for the consultation. Medications and Allergies Allergies Allergy/AdvReac Type Severity Reaction Status Date / Time gabapentin Allergy Rash Verified 12/12/14 16:07 pregabalin [From Lyrica] Allergy Rash Verified 12/12/14 16:07 soy Allergy Unknown Verified 02/19/16 11:03 Iodinated Contrast- Oral and AdvReac Swelling Verified 12/12/14 16:35 IV Dye [Iodinated Contrast Media - IV Dye] Home Medications Medication Instructions Recorded Confirmed Last Taken Type Calcitriol 1 tab PO DAILY 12/12/14 10/06/17 10/05/17 History Cholecalciferol (Vitamin D3) 1,000 unit PO DAILY 10/06/17 10/06/17 10/05/17 History [Vitamin D3] Multivitamin with Folic Acid [One 400 mcg PO DAILY 10/06/17 10/06/17 10/05/17 History Daily Multivitamin Tablet] Ranitidine HCl [Heartburn Relief] 150 mg PO BID 10/06/17 10/06/17 10/05/17 History Sodium Bicarbonate 650 mg PO BID 10/06/17 10/06/17 10/05/17 History Active Meds: Active Medications Acetaminophen (Tylenol) 650 mg PO Q4H PRN PRN Reason: Pain MILD(1-3)/Fever >100.5/ROSS Baclofen (Lioresal) 10 mg PO TID [facility] Last Admin: 10/06/17 21:20 Dose: Not Given Calcitriol (Rocaltrol) 0.25 mcg PO DAILY [facility] Enoxaparin Sodium (Lovenox) 30 mg SUB-Q QDAY [facility] Famotidine (Pepcid) 20 mg PO QDAY [facility] Famotidine (Pepcid) 20 mg PO BID [facility] Sodium Chloride (Nacl 0.9% 1000 Ml) 1,000 mls @ 100 mls/hr IV DIRECT [facility] Last Admin: 10/07/17 05:25 Dose: 100 mls/hr Morphine Sulfate (Morphine) 2 mg IV Q4H PRN PRN Reason: Pain, Moderate (4-6) Ondansetron HCl (Zofran) 4 mg IV Q8H PRN PRN Reason: Nausea And Vomiting Oxycodone/Acetaminophen (Percocet 5/325) 1 tab PO Q6H PRN PRN Reason: Pain, Moderate (4-6) Last Admin: 10/06/17 22:05 Dose: 1 tab Sodium Bicarbonate (Sodium Bicarbonate) 650 mg PO BID [facility] Sodium Chloride (Sodium Chloride Flush Syringe 10 Ml) 10 ml IV BID [facility] Last Admin: 10/06/17 22:16 Dose: 10 ml Sodium Chloride (Sodium Chloride Flush Syringe 10 Ml) 10 ml IV PRN PRN PRN Reason: LINE FLUSH Exam - Vital Signs Vital signs: Vital Signs Temp Pulse Resp BP Pulse Ox 98.5 F 100 H 20 138/94 97 10/06/17 06:08 10/06/17 06:08 10/06/17 06:08 10/06/17 06:08 10/06/17 06:08 Results - Lab Results 10/07/17 04:23 10/07/17 04:23 Most recent lab results Calcium 9.3 mg/dL (8.4-10.2) 10/07/17 04:23
--- NOTE | 2017-10-07 09:42 | History and Physical Report ---
CHIEF COMPLAINT: Chest pain and abdominal pain. One-day duration. HISTORY OF PRESENT ILLNESS: A 72-year-old black male with history of ulcerative colitis status post colectomy and permanent ileostomy bag, comes in for substernal chest pain since yesterday. Chest pain is ____. Pain is about 5 on a scale of 1-10. Also epigastric pain off and on. Also increased output in the ileostomy bag for the last 3-4 days. Not on any antibiotics. He has muscle cramping in the abdominal wall. No shortness of breath. The patient did not have any cardiac workup recently. The patient also has IVC filter. PAST MEDICAL HISTORY: Significant for hypertension, coronary artery disease, deep vein thrombosis, gastroesophageal reflux disease, chronic kidney disease, arthritis and COPD. Also, aortic aneurysm about 4.2 cm. PAST SURGICAL HISTORY: Ileostomy and IVC filter, appendectomy in the past. FAMILY HISTORY: Hypertension. SOCIAL HISTORY: Does not smoke. No alcohol, no recreational drugs. CURRENT MEDICATIONS: Vitamin D, ranitidine, sodium bicarbonate and calcitriol. Calcitriol 1 tablet daily, vitamin D3 1000 units daily, ranitidine 150 mg twice a day, sodium bicarbonate 650 mg twice a day. REVIEW OF SYSTEMS: Significant for chest pain and epigastric pain and increased output in the ileostomy bag. PHYSICAL EXAMINATION: GENERAL: Elderly male, cooperative during examination. VITAL SIGNS: Blood pressure is 126/88, temperature is 98.2, pulse is 83, respirations are 17, sats are 94%. HEENT: Unremarkable. Pupils equal and reactive. NECK: Supple, no lymphadenopathy, no thyromegaly. LUNGS: Clear to auscultation and percussion. Good air entry. CARDIOVASCULAR: S1, S2 heard. No gallop, no murmur, no rub. Apical impulse in left fifth intercostal space and midclavicular line. ABDOMEN: Soft and benign. No hepatosplenomegaly. No guarding, no rigidity. Ileostomy bag present. Increased output in the ileostomy bag. EXTREMITIES: Normal. CENTRAL NERVOUS SYSTEM: Alert and oriented x 4, nonfocal exam. LABORATORY DATA AND DIAGNOSTIC STUDIES: White count is normal. H and H is 13.9 and 42.0. Sodium is 141, potassium is 4.6, chloride is 104, bicarbonate is 18, BUN and creatinine 40 and 2.5. Troponin is 0.010. A1c is 5.3. EKG normal sinus rhythm, no acute ST-T wave changes. Abdominal CAT scan, no acute abdominal process. Surgical changes are described. Small right inguinal hernia containing a short segment of small bowel. CT chest, ascending aorta measures 3.9 cm. Otherwise, normal CT chest. ASSESSMENT AND PLAN: 1. Chest pain, rule out myocardial infarction, chest pain protocol. Lexiscan in the morning. Serial cardiac enzymes. 2. Chronic kidney disease and possible acute on chronic renal failure. IV fluids for the time being. Nephrology consult requested. 3. Gastroesophageal reflux disease. Continue ranitidine. Muscle spasms. Muscle relaxers for the time being. 4. Vitamin D deficiency. Continue vitamin D. 5. Deep venous thrombosis prophylaxis, Lovenox 30 mg subcutaneous daily. In summary, the patient needs chest pain rule out IN protocol and also GI consult for high output ileostomy bag to be taken into consideration. JOB# [id number] VSM/JENN
[2017-10-07] MEDS ORDERED: LOVENOX SUB-Q SCH (10:00)
[2017-10-07] MEDS: PEPCID PO SCH ×3 (10:28→21:10)
[2017-10-07] MEDS: SODIUM CHLORIDE FLUSH SYRINGE 10 ML IV SCH ×2 (10:29→21:10)
[2017-10-07] MEDS: ROCALTROL PO SCH (10:29)
[2017-10-07] MEDS: SODIUM BICARBONATE PO SCH ×2 (10:29→21:09)
[2017-10-07 10:43] LABS: Total Cells Counted 100
[2017-10-07 10:44] LABS: Platelet Estimate Consistent w Auto; RBC Morphology Normal
[2017-10-07 11:27] LABS: Creatinine,Urine 136.4 mg/dL (0.1-20.0)
[2017-10-07 11:31] LABS: Bilirubin,Urine NEG (Negative); Blood,Urine SM (Negative); Color,Urine Yellow (Yellow); Granular Casts,Urine 4 /LPF; Mucus,Urine FEW /HPF; RBC,Urine < 1.0 /HPF (0.0-6.0); Urobilinogen,Urine < 2.0 mg/dL (<2.0)
[2017-10-07] MEDS: TYLENOL PO PRN (15:40)
--- NOTE | 2017-10-07 16:46 | Progress Note ---
Assessment and Plan Assessment and plan: Patient is a 72 yo man with history of hypertension, CAD/[place] (), DVT (s/p IVC filter), GERD, CKD, arthritis, COPD, Ulcerative Colitis s/p total colectomy who presented with CP and abdominal pains along with some nausea and increased non-bloody output from his ileostomy x [address] chest negative for PE. Cardiac enzymes negative. Stress test planned for tomorrow. Abd CT negative for obstruction or inflammation. He states he underwent a total colectomy by Dr. Russell in 1998 due to hx of UC with revision in 2006 (ischemic bowel? and 2013. Also has a hx of GERD on ranitidine at home. Last EGD a couple of months ago at [place] per patient with results showing no ulcer or H pylori. -Increased ileostomy output suspect an acute gastroenteritis: Await stool studies. If stool studies negative, may add anti diarrheal medications. -Chest pains: stress test in am -GERD: treat with PPI -ANISA/CKD 3, vasomotor nephropathy: nephrology is following, treat with bicarbonate -Vitamin D deficiency: supplement -DVt prophylaxis: sq heparin, he refused lovenox -Metabolic acidosis that requires correction to a bicarbonate of about 20-24 patient will need bicarbonate infusion, this most likely was resulting from GI losses -Status post colectomy total in 1998 due to ulcerative colitis with revision in 2006 in 2012 Renal prognosis guarded at this time History Interval history: Patient was seen and examined. Follow-up on current diagnosis, chest pain, resolved at the moment. Overnight uneventful. Patient denies any chest pain, shortness breath, nausea/vomiting or severe headaches. Imaging, nursing note, chart, labs and old chart reviewed. Discussed with patient. Hospitalist Physical - Physical exam Narrative exam: GEN: WDWN, NAD, Awake, Alert, Orientated x 3 HEENT: NCAT, EOMI, PERRL, OP Clear NECK: supple, no adenopathy, no thyromegaly, no JVD CVS/HEART: RRR, normal S1S2, pulses present bilaterally CHEST/LUNGS: CTA B, Symmetrical chest expansion, good air entry bilaterally GI/Abdomen: soft, NTND, left sided colostomy good bowel sounds, no guarding or rebound /Bladder: no suprapubic tenderness, no CVA or paraspinal tenderness EXT/Skin: no c/c/e, no obvious rash MSK: FROM x 4 Neuro: CN 2-12 grossly intact, no new focal deficits Psych: calm - Constitutional Vitals: Temp Pulse Resp BP Pulse Ox 97.9 F 86 20 138/90 97 10/07/17 12:20 10/07/17 12:20 10/07/17 15:40 10/07/17 12:20 10/07/17 07:30 Results - Labs CBC & Chem 7: 10/07/17 04:23 10/07/17 04:23 Labs: Laboratory Last Values WBC 3.9 K/mm3 (4.5-11.0) L 10/07/17 04:23 RBC 4.09 M/mm3 (3.65-5.03) 10/07/17 04:23 Hgb 13.2 gm/dl (11.8-15.2) 10/07/17 04:23 Hct 39.5 % (35.5-45.6) 10/07/17 04:23 MCV 97 fl (84-94) H 10/07/17 04:23 MCH 32 pg (28-32) 10/07/17 04:23 MCHC 33 % (32-34) 10/07/17 04:23 RDW 13.3 % (13.2-15.2) 10/07/17 04:23 Plt Count 166 K/mm3 (140-440) 10/07/17 04:23 Lymph % (Auto) 5.5 % (13.4-35.0) L 10/06/17 07:42 [place] % (Auto) Loss Prevention Investigator 10/07/17 04:23 Eos % (Auto) 0.5 % (0.0-4.3) 10/06/17 07:42 Baso % (Auto) 0.3 % (0.0-1.8) 10/06/17 07:42 Lymph # 0.4 K/mm3 (1.2-5.4) L 10/06/17 07:42 [place] # 0.5 K/mm3 (0.0-0.8) 10/06/17 07:42 Eos # 0.0 K/mm3 (0.0-0.4) 10/06/17 07:42 Baso # 0.0 K/mm3 (0.0-0.1) 10/06/17 07:42 Add Manual Diff Complete 10/07/17 04:23 Total Counted 100 10/07/17 04:23 Seg Neutrophils % 86.2 % (40.0-70.0) H 10/06/17 07:42 Seg Neuts % (Manual) 59.0 % (40.0-70.0) 10/07/17 04:23 Band Neutrophils % 1.0 % 10/07/17 04:23 Lymphocytes % (Manual) 19.0 % (13.4-35.0) 10/07/17 04:23 Reactive Lymphs % (Man) 1.0 % 10/07/17 04:23 Monocytes % (Manual) 15.0 % (0.0-7.3) H 10/07/17 04:23 Eosinophils % (Manual) 4.0 % (0.0-4.3) 10/07/17 04:23 Basophils % (Manual) 1.0 % (0.0-1.8) 10/07/17 04:23 Metamyelocytes % 0 % 10/07/17 04:23 Myelocytes % 0 % 10/07/17 04:23 Promyelocytes % 0 % 10/07/17 04:23 Blast Cells % 0 % 10/07/17 04:23 Nucleated RBC % Not Reportable 10/07/17 04:23 Seg Neutrophils # 5.9 K/mm3 (1.8-7.7) 10/06/17 07:42 Seg Neutrophils # Man 2.3 K/mm3 (1.8-7.7) 10/07/17 04:23 Band Neutrophils # 0.0 K/mm3 10/07/17 04:23 Lymphocytes # (Manual) 0.7 K/mm3 (1.2-5.4) L 10/07/17 04:23 Abs React Lymphs (Man) 0.0 K/mm3 10/07/17 04:23 Monocytes # (Manual) 0.6 K/mm3 (0.0-0.8) 10/07/17 04:23 Eosinophils # (Manual) 0.2 K/mm3 (0.0-0.4) 10/07/17 04:23 Basophils # (Manual) 0.0 K/mm3 (0.0-0.1) 10/07/17 04:23 Metamyelocytes # 0.0 K/mm3 10/07/17 04:23 Myelocytes # 0.0 K/mm3 10/07/17 04:23 Promyelocytes # 0.0 K/mm3 10/07/17 04:23 Blast Cells # 0.0 K/mm3 10/07/17 04:23 WBC Morphology Not Reportable 10/07/17 04:23 Hypersegmented Neuts Not Reportable 10/07/17 04:23 Hyposegmented Neuts Not Reportable 10/07/17 04:23 Hypogranular Neuts Not Reportable 10/07/17 04:23 Smudge Cells Not Reportable 10/07/17 04:23 Toxic Granulation Not Reportable 10/07/17 04:23 Toxic Vacuolation Not Reportable 10/07/17 04:23 Dohle Bodies Not Reportable 10/07/17 04:23 Pelger-Huet Anomaly Not Reportable 10/07/17 04:23 Jose C Rods Not Reportable 10/07/17 04:23 Platelet Estimate Consistent w auto 10/07/17 04:23 Clumped Platelets Not Reportable 10/07/17 04:23 Plt Clumps, EDTA Not Reportable 10/07/17 04:23 Large Platelets Not Reportable 10/07/17 04:23 Giant Platelets Not Reportable 10/07/17 04:23 Platelet Satelliting Not Reportable 10/07/17 04:23 Plt Morphology Comment Not Reportable 10/07/17 04:23 RBC Morphology Normal 10/07/17 04:23 Dimorphic RBCs Not Reportable 10/07/17 04:23 Polychromasia Not Reportable 10/07/17 04:23 Hypochromasia Not Reportable 10/07/17 04:23 Poikilocytosis Not Reportable 10/07/17 04:23 Anisocytosis Not Reportable 10/07/17 04:23 Microcytosis Not Reportable 10/07/17 04:23 Macrocytosis Not Reportable 10/07/17 04:23 Spherocytes Not Reportable 10/07/17 04:23 Pappenheimer Bodies Not Reportable 10/07/17 04:23 Sickle Cells Not Reportable 10/07/17 04:23 Target Cells Not Reportable 10/07/17 04:23 Tear Drop Cells Not Reportable 10/07/17 04:23 Ovalocytes Not Reportable 10/07/17 04:23 Helmet Cells Not Reportable 10/07/17 04:23 Juares-Mcintosh Bodies Not Reportable 10/07/17 04:23 [place] Rings Not Reportable 10/07/17 04:23 [place] Cells Not Reportable 10/07/17 04:23 Bite Cells Not Reportable 10/07/17 04:23 Crenated Cell Not Reportable 10/07/17 04:23 Elliptocytes Not Reportable 10/07/17 04:23 Acanthocytes (Spur) Not Reportable 10/07/17 04:23 Rouleaux Not Reportable 10/07/17 04:23 Hemoglobin C Crystals Not Reportable 10/07/17 04:23 Schistocytes Not Reportable 10/07/17 04:23 Malaria parasites Not Reportable 10/07/17 04:23 [place]re Bodies Not Reportable 10/07/17 04:23 Hem Pathologist Commnt No 10/07/17 04:23 D-Dimer 600.73 ng/mlDDU (0-234) H 10/06/17 11:04 Sodium 139 mmol/L (137-145) 10/07/17 04:23 Potassium 4.4 mmol/L (3.6-5.0) 10/07/17 04:23 Chloride 107.9 mmol/L (98-107) H 10/07/17 04:23 Carbon Dioxide 16 mmol/L (22-30) L 10/07/17 04:23 Anion Gap 20 mmol/L 10/07/17 04:23 BUN 41 mg/dL (9-20) H 10/07/17 04:23 Creatinine 2.4 mg/dL (0.8-1.5) H 10/07/17 04:23 Estimated GFR 32 ml/min 10/07/17 04:23 BUN/Creatinine Ratio 17 % 10/07/17 04:23 Glucose 80 mg/dL (75-100) 10/07/17 04:23 Hemoglobin A1c 5.3 % (4-6) 10/06/17 20:16 Osmolality 309 Mosm/kg 10/07/17 13:21 Uric Acid 10.1 mg/dL (3.5-7.6) H 10/07/17 13:21 Calcium 9.3 mg/dL (8.4-10.2) 10/07/17 04:23 Total Bilirubin 0.80 mg/dL (0.1-1.2) 10/07/17 04:23 AST 25 units/L (5-40) 10/07/17 04:23 ALT 19 units/L (7-56) 10/07/17 04:23 Alkaline Phosphatase 103 units/L (35-129) 10/07/17 04:23 Troponin T < 0.010 ng/mL (0.00-0.029) 10/07/17 09:16 Total Protein 7.6 g/dL (6.3-8.2) 10/07/17 04:23 Albumin 4.1 g/dL (3.9-5) 10/07/17 04:23 Albumin/Globulin Ratio 1.2 % 10/07/17 04:23 Urine Color Yellow (Yellow) 10/07/17 10:19 Urine Turbidity Clear (Clear) 10/07/17 10:19 Urine pH 5.0 (5.0-7.0) 10/07/17 10:19 Ur Specific [place] 1.017 (1.003-1.030) 10/07/17 10:19 Urine Protein 100 mg/dl mg/dL (Negative) 10/07/17 10:19 Urine Glucose (UA) Neg mg/dL (Negative) 10/07/17 10:19 Urine Ketones Neg mg/dL (Negative) 10/07/17 10:19 Urine Blood Sm (Negative) 10/07/17 10:19 Urine Nitrite Neg (Negative) 10/07/17 10:19 Urine Bilirubin Neg (Negative) 10/07/17 10:19 Urine Urobilinogen < 2.0 mg/dL (<2.0) 10/07/17 10:19 Ur Leukocyte Esterase Neg (Negative) 10/07/17 10:19 Urine WBC (Auto) 1.0 /HPF (0.0-6.0) 10/07/17 10:19 Urine RBC (Auto) < 1.0 /HPF (0.0-6.0) 10/07/17 10:19 Granular Casts 4 /LPF 10/07/17 10:19 Urine Mucus Few /HPF 10/07/17 10:19 Urine Creatinine 136.4 mg/dL (0.1-20.0) H 10/07/17 10:19 Urine Sodium 82 mmol/L 08/14/18 10:19 Urine Total Protein 178 mg/dL (5-11.8) H 10/07/17 10:19
[2017-10-08 05:31] LABS: Hemoglobin 13.1 gm/dl (11.8-15.2); Mean Corpuscular HGB Conc 34 % (32-34); Mean Corpuscular Hemoglobin 32 pg (28-32); Mean Corpuscular Volume 97 fl (84-94); Platelet Count 151 K/mm3 (140-440); Red Blood Count 4.03 M/mm3 (3.65-5.03)
[2017-10-08 05:54] LABS: Calcium 9.4 mg/dL (8.4-10.2)
--- NOTE | 2017-10-08 08:41 | Progress Note ---
Subjective Interval history: Patient was seen today for follow-up on multiple renal related issues Events of this hospitalization noted He has been followed up in our clinic No chest pain has had myocardial perfusion scan Patient denies having any chest pain pressure or shortness of breath Vitals labs intake output medications were reviewed Social history: Reviewed Allergies: Reviewed Family history: Reviewed Physical examination HEENT: Oral mucosa moist no pallor or icterus Neck: Supple no JVD Chest: Clear to auscultation anteriorly CVS: Regular rate and rhythm S1 and S2 heard Abdomen: Soft nontender no suprapubic masses no organomegaly appreciable Extremity: Dry skin less than 1+ peripheral edema Musculoskeletal: No joint effusion noted in knees and ankle Neurological: Alert awake Dermatology: No petechial rashes Psychiatry: No evidence of any agitation and aggression noted Assessment and plan Renal failure: Mostly chronic patient also does appear to be prerenal and is in need for IV fluid hydration monitoring of intake and output High-output ileostomy currently being followed by gastroenterology service No indication for renal replacement therapy in my opinion Blood pressure appears to be stable Hemoglobin currently 13.1 platelet count 151 Mild hyponatremia to follow Status post myocardial perfusion scan for abnormal cardiac enzymes Metabolic acidosis: Oral sodium bicarbonate IV fluid and follow-up Overall stable from renal standpoint but is in need for close monitoring of intake output labs avoid nephrotoxic medication Patient was adequately counseled and educated regarding multiple renal related issues Pertinent lab findings were discussed with patient, patient does exhibit good understanding of renal issues We'll continue to follow and make recommendation from renal standpoint Objective - Vital Signs Vital signs: Vital Signs - 12hr 10/07/17 10/08/17 10/08/17 21:14 01:01 04:52 Temperature 97.7 F 97.7 F 97.7 F Pulse Rate 72 68 70 Respiratory 17 17 17 Rate Blood Pressure 124/86 137/97 116/80 [Left] O2 Sat by Pulse 97 98 96 Oximetry - Lab 10/08/17 05:12 10/08/17 05:12 Most recent lab results Calcium 9.4 mg/dL (8.4-10.2) 10/08/17 05:12 Magnesium 1.80 mg/dL (1.7-2.3) 10/08/17 05:12 Urine Creatinine 136.4 mg/dL (0.1-20.0) H 10/07/17 10:19 Urine Sodium 82 mmol/L 10/07/17 10:19 Urine Total Protein 178 mg/dL (5-11.8) H 10/07/17 10:19
[2017-10-08] MEDS ORDERED: LEXISCAN IV ONE (08:42)
[2017-10-08] MEDS ORDERED: NACL 0.9% 1000 ML 1,000 ML IV SCH (09:00)
[2017-10-08] MEDS ORDERED: HEPARIN SUB-Q SCH (10:00)
--- NOTE | 2017-10-08 11:04 | Ultrasound Report ---
ULTRASOUND RENAL INDICATION: Renal failure. COMPARISON: 10/06/2017 CT. FINDINGS: Renal sonography suggests borderline/slight increased renal cortical echogenicity. Grossly preserved contours. No hydronephrosis. Slightly coarse imaged liver. RIGHT KIDNEY measures 9.8 x 4 x 4.2 cm with cortical thickness of 1.3 cm. LEFT KIDNEY estimated at 9 x 4.5 x 4.8 cm with cortical thickness of 1 cm. URINARY BLADDER suboptimally distended and assessed. CONCLUSION: Mild underlying medical renal disease possible sonographically without acute renal abnormality. Please correlate. Thank you for the opportunity to participate in this patient's care.
[2017-10-08] MEDS: LIORESAL PO SCH (11:40)
[2017-10-08] MEDS: ROCALTROL PO SCH (11:41)
[2017-10-08] MEDS: PEPCID PO SCH (11:41)
[2017-10-08] MEDS: SODIUM CHLORIDE FLUSH SYRINGE 10 ML IV SCH (11:42)
[2017-10-08] MEDS: SODIUM BICARBONATE PO SCH (11:42)
[2017-10-08] MEDS: TYLENOL PO PRN (11:54)
--- NOTE | 2017-10-08 12:09 | Gastroenterology Progress Note ---
Assessment and Plan - Patient Problems (1) Increased ileostomy output Current Visit: Yes Status: Acute Plan to address problem: Probable acute gastroenteritis. Rare WBCs in stool, likely viral. Improving rapidly. OK to go home [place]. May use Imodium PRN. Subjective Date of service: 10/08/17 Principal diagnosis: Increased ileal output Interval history: Reports feeling well today. Feel ileal output is normalizing. No nausea or vomiting. Tolerating regular diet. Objective - Constitutional Vitals: Temp Pulse Resp BP Pulse Ox 97.7 F 70 17 116/80 96 10/08/17 04:52 10/08/17 04:52 10/08/17 04:52 10/08/17 04:52 10/08/17 04:52 General appearance: no acute distress - EENT ENT: hearing intact, clear oral mucosa, dentition normal - Neck Neck: supple, normal ROM - Respiratory Respiratory effort: normal Respiratory: bilateral: CTA - Cardiovascular Rhythm: regular - Gastrointestinal General gastrointestinal: Present: soft, non-tender, non-distended, normal bowel sounds - Neurologic Neurological: alert and oriented x3 - Labs CBC & Chem 7: 10/08/17 05:12 10/08/17 05:12 Labs: Laboratory Results - last 24 hr 10/07/17 10/07/17 10/08/17 13:21 13:21 05:12 WBC 4.1 L RBC 4.03 Hgb 13.1 Hct 39.0 MCV 97 H MCH 32 MCHC 34 RDW 13.0 L Plt Count 151 Sodium Potassium Chloride Carbon Dioxide Anion Gap BUN Creatinine Estimated GFR BUN/Creatinine Ratio Glucose Osmolality 309 Uric Acid 10.1 H Calcium Magnesium 10/08/17 05:12 WBC RBC Hgb Hct MCV MCH MCHC RDW Plt Count Sodium 135 L Potassium 4.7 Chloride 102.4 Carbon Dioxide 19 L Anion Gap 18 BUN 38 H Creatinine 2.6 H Estimated GFR 29 BUN/Creatinine Ratio 15 Glucose 88 Osmolality Uric Acid Calcium 9.4 Magnesium 1.80
--- NOTE | 2017-10-08 13:01 | Treadmill Report ---
THALLIUM REPORT REASON FOR STUDY: Chest pain. IMAGING PROTOCOL: The patient received 10.31 mCi of Tc-99m Tetrofosmin for rest imaging and 30.56 mCi of Tc-99m Tetrofosmin for stress imaging. Imaging for all procedures was completed 30-90 minutes following the initial injection of Technetium 99m Tetrofosmin. SPECT imaging in the 180 degree arc was performed in the right anterior oblique projection. Computerized reconstruction of the images was performed for analysis. NUCLEAR IMAGING RESULTS: Normal left ventricular cavity size with no change from stress to rest. Distribution of radionuclide within the left ventricle revealed a medium-sized area of photo-induction involving the inferior wall. The degree of photo-induction is moderate. Rest imaging does not show any significant improvement in this defect. Gated SPECT imaging revealed normal global LV systolic function with no significant wall motion abnormalities. The calculated left ventricular ejection fraction is 66%. IMPRESSION: Medium size fixed inferior wall defect. Normal global LV systolic function with no significant wall motion abnormalities. EF:66%. These findings suggest prior infarction in the right coronary artery territory. However, in the absence of wall motion abnormalities, the defect noted in this patient is probably artifactual. No evidence of significant stress-induced ischemia. [facility]# [id number] ZEYAD/JENN CRAMER
[2017-10-08 13:56] VITALS: BP 129/87
--- NOTE | 2017-10-08 14:30 | Query- Chest Pain ---
Dear ___Douglas Date:___10/08/17 Ethnoarchaeology Professor/CDS:____suri Phone#:____[phone] Exercise your independent professional judgment when responding to query. Questions asked do not imply a particular answer is desired or expected. We greatly appreciate your clarification on this issue. Clinical Documentation States: A 72 year old black male with history of ulcerative colitis status post colectomy and permanent ileostomy bag, comes in for susternal chest pain since yesterday. chest pain is about 5 on a scale of 1-10. Also epigastric pain off and on. Taken from H&P note () on 10/07/17. Assessment and plan: Taken from progress note () on 10/07/17. acute gastroenteritis Chest pain GERD ANISA/CKD 3, vasomotor nephropathy Metabolic acidosis Clinical Findings Show: CT chest negative for PE. Cardiac enzymes negative. Stress thallium test shows no evidence of stress induced ischemia. EF 66% V/Q scan shows low probability for pulmonary embolus chest X ray shows no acute cardiopulmonary process Please document the etiology of Chest Pain: [ ] Myocardial Infarction [ ] Pneumonia [ ] Mediastinitis [x ] Costochondritis [ ] Pulmonary Embolism [ ] Coronary Artery Disease [ ] GERD [ ] Other: [ ] Comment/Explanation: Present on Admission: [ x] Yes (Y) [ ] Clinically undeterminable (W) [ ] No(N) Please document response in your Progress Notes and/or Discharge Summary and indicate if the condition was present on admission. SHOAIB
--- NOTE | 2017-10-08 16:02 | Discharge Summary ---
Providers - Providers Date of Admission: 10/06/17 19:49 Date of discharge: 10/08/17 Attending physician: CLAUDIA QUINONES 10/06/17 19:49 Consult to Physician [CONS] Routine Comment: Consulting Provider: MOIRA MICHELLE Physician Instructions: Reason For Exam: high output ileostomy 10/06/17 19:53 Consult to Physician [CONS] Routine Comment: Consulting Provider: BERNICE HUANG Physician Instructions: Reason For Exam: CKD/ANISA Primary care physician: DIRECTOR [employer] Hospitalization Condition: Stable Hospital course: Patient is a 72 yo man with history of hypertension, CAD/[place] (), DVT (s/p IVC filter), GERD, CKD, arthritis, COPD, Ulcerative Colitis s/p total colectomy who presented with CP and abdominal pains along with some nausea and increased non-bloody output from his ileostomy x [address] chest negative for PE. Cardiac enzymes negative. Stress test planned for tomorrow. Abd CT negative for obstruction or inflammation. He states he underwent a total colectomy by Dr. Russell in 1998 due to hx of UC with revision in 2006 (ischemic bowel? and 2012. Also has a hx of GERD on ranitidine at home. Last EGD a couple of months ago at [place] per patient with results showing no ulcer or H pylori. -Increased ileostomy output suspect an acute gastroenteritis: Await stool studies. If stool studies negative, may add anti diarrheal medications. -Chest pains. most likely costochondritis, with negative stress test 10/08/17 -GERD: treat with PPI -ANISA/CKD 3, vasomotor nephropathy: nephrology is following, treat with bicarbonate -Vitamin D deficiency: supplement -DVt prophylaxis: sq heparin, he refused lovenox -Metabolic acidosis that requires correction to a bicarbonate of about 20-24 patient will need bicarbonate infusion, this most likely was resulting from GI losses -Status post colectomy total in the year 1998 due to ulcerative colitis with revision Disposition: DC-01 TO HOME OR SELFCARE Time spent for discharge: 36 minutes Core Measure Documentation - Palliative Care Palliative Care/ Comfort Measures: Not Applicable - Core Measures Any of the following diagnoses?: none - VTE Discharge Requirements Deep Vein Thrombosis/Pulmonary Embolism Present on Admission: No Has pt received <5 days of overlap therapy or INR<2.0: No Anticoagulant overlap therapy prescribed at discharge: No Contraindication No Overlap Therapy order at DC: Not Indicated Exam - Physical Exam Narrative exam: GEN: WDWN, NAD, Awake, Alert, Orientated x 3 HEENT: NCAT, EOMI, PERRL, OP Clear NECK: supple, no adenopathy, no thyromegaly, no JVD CVS/HEART: RRR, normal S1S2, pulses present bilaterally CHEST/LUNGS: CTA B, Symmetrical chest expansion, good air entry bilaterally GI/Abdomen: soft, NTND, left sided colostomy good bowel sounds, no guarding or rebound /Bladder: no suprapubic tenderness, no CVA or paraspinal tenderness EXT/Skin: no c/c/e, no obvious rash MSK: FROM x 4 Neuro: CN 2-12 grossly intact, no new focal deficits Psych: calm - Constitutional Vitals: Temp Pulse Resp BP Pulse Ox 97.3 F L 79 18 129/87 98 10/08/17 11:44 10/08/17 11:44 10/08/17 11:44 10/08/17 11:44 10/08/17 11:44 Plan Activity: other (no strenous activity until cleared by PCP) Diet: advance as tolerated Follow up with: PRIMARY CAREMD [Primary Care Provider] - 3-5 Days MOIRA MICHELLE MD [Staff Physician] - 7 Days BERNICE HUANG MD [Staff Physician] - 7 Days Prescriptions: RX: Acetaminophen [Acetaminophen TAB] 650 mg PO Q4H PRN #15 tablet PRN Reason: Pain MILD(1-3)/Fever >100.5/ROSS RX: Baclofen [Lioresal] 10 mg PO TID #90 tablet RX: Calcitriol [Rocaltrol] 0.25 mcg PO DAILY #30 capsule RX: oxyCODONE /ACETAMINOPHEN [Percocet 5/325 mg] 1 tab PO Q6H PRN #12 tablet PRN Reason: Pain , Severe (7-10) RX: Sodium Bicarbonate 650 mg PO BID #60 tablet
== END 2017-10-08 16:49 | disposition home or self-care (01) | DRG 205 ==
LOC: ED 05:43 → 3A 19:49 → 3B-SURG 10-07 00:22
PROVIDERS: ADMIT Internal Medicine; ATTEND Internal Medicine
DX: M94.0 Chondrocostal junction syndrome [Tietze] (principal); N17.0 Acute kidney failure with tubular necrosis; E87.2 Acidosis; E87.1 Hypo-osmolality and hyponatremia; K52.9 Noninfective gastroenteritis and colitis, unspecified; K21.9 Gastro-esophageal reflux disease without esophagitis; I12.9 Hypertensive chronic kidney disease with stage 1 through stage 4 chronic kidney disease, or unspecified chronic kidney disease; J44.9 Chronic obstructive pulmonary disease, unspecified; N18.3 Chronic kidney disease, stage 3 (moderate); I25.10 Atherosclerotic heart disease of native coronary artery without angina pectoris; Z86.718 Personal history of other venous thrombosis and embolism; Z93.3 Colostomy status; Z79.01 Long term (current) use of anticoagulants; Z90.49 Acquired absence of other specified parts of digestive tract; Z82.49 Family history of ischemic heart disease and other diseases of the circulatory system; Z88.8 Allergy status to other drugs, medicaments and biological substances; Z91.041 Radiographic dye allergy status; Z91.013 Allergy to seafood; Z93.2 Ileostomy status
CPT/HCPCS: 36415; 71045; 71250; 74176; 76770; 78452; 78582; 80048; 80053; 81001; 82570; 83036; 83735; 83930; 84156; 84300; 84484; 84550; 85007; 85025; 85027; 85379; 87045; 93005; 93010; 93017; A9502; A9540; A9558; J1644; J1650; J2785; J7030

== ENCOUNTER 2020-07-04 17:49 | Inpatient (IN) | payer MEDICARE, OTHER ==
--- NOTE | 2020-07-04 18:11 | Event Note ---
ED Screening Note Date of service: 07/04/20 Time: 18:09 ED Screening Note: 74-year-old male patient with history of end-stage renal disease, abdominal aortic aneurysm, and DVTs presents to the emergency department with complaints of dizziness and nausea for 3 days. Patient was sent to the emergency department by his flask handler, Dr. Oscar, for evaluation of low blood pressure. Patient is scheduled to begin dialysis and is currently in the process of undergoing vascular access placement. He is not currently anticoagulated. BP in triage 93/67 General: Awake, appropriately interactive, no acute distress. Neck: Supple. Full range of motion intact. Cardiovascular: Normal peripheral perfusion. Pulmonary: No respiratory distress. Patient is speaking normally without use of accessory muscles. Skin: No apparent rashes or lesions. Neurological: No facial asymmetry. Speech is clear. Follows commands. Patient is alert and oriented. Musculoskeletal: Moves all four extremities spontaneously with normal range of motion. Psych: Cooperative. Appropriate mood and affect. I have greeted and performed a focused rapid initial assessment of this patient. A comprehensive ED assessment and evaluation of the patient, analysis of all test results, and completion of the medical decision-making process will be conducted by additional ED providers. This initial assessment/diagnostic orders/clinical plan/treatment(s) is/are subject to change based on patients health status, clinical progression and re-assessment. Further treatment and workup at subsequent clinical provider's discretion. Patient/guardian urged not to elope from the ED as their condition may be serious if not clinically assessed and managed.
--- NOTE | 2020-07-04 18:51 | XRay Report ---
CHEST 2 VIEWS INDICATION / CLINICAL INFORMATION: dizziness. FINDINGS: SUPPORT DEVICES: None. HEART / MEDIASTINUM: No significant abnormality. LUNGS / PLEURA: No significant pulmonary or pleural abnormality. No pneumothorax. ADDITIONAL FINDINGS: No significant additional findings. IMPRESSION: 1. No acute findings. Signer Name: Julian Ellison MD Signed: 07/04/2020 6:47 PM Workstation Name: [id number]
[2020-07-04 19:01] LABS: Basophils % (Auto) 0.2 % (0.0-1.8); Eosinophils % (Auto) 0.3 % (0.0-4.3); Hemoglobin 14.9 gm/dl (11.8-15.2); Lymphocytes # (Auto) 0.9 K/mm3 (1.2-5.4); Lymphocytes % (Auto) 11.3 % (13.4-35.0); Mean Corpuscular HGB Conc 35 % (32-34); Mean Corpuscular Volume 98 fl (84-94); Monocytes # (Auto) 0.7 K/mm3 (0.0-0.8); Monocytes % (Auto) 9.2 % (0.0-7.3); Platelet Count 189 K/mm3 (140-440); Red Blood Count 4.39 M/mm3 (3.65-5.03); Red Cell Distribution Width 13.4 % (13.2-15.2)
[2020-07-04 19:28] LABS: Albumin 4.7 g/dL (3.9-5); Calcium 10.3 mg/dL (8.4-10.2)
[2020-07-04 20:06] LABS: Chol/HDL Ratio 1.47 %
--- NOTE | 2020-07-05 08:35 | Emergency Department Report ---
ED General Adult HPI - General Chief complaint: Weakness Stated complaint: RENAL FAILURE STAGE 5, LOW BLOOD PRESSURE, DIZZY Time Seen by Provider: 07/05/20 08:33 Source: patient Mode of arrival: Wheelchair Limitations: Physical Limitation - History of Present Illness Initial comments: This is a 74-year-old man with a history of stage IV renal failure. He stated that he felt weak and dizzy yesterday (the ) at home. He took his blood pressure and found it to be in the 80s. He called his tower technician Dr. Oscar who instructed him to come to the emergency department. Due to overcrowding he was just brought back to the emergency department today (the ). His blood pressure was normal range. He was in no distress. Patient tells me he has had several attempts at graft placement at previous dialysis I believe he stated in 2006. His last attempted graft he states was on June 21, 2000. In any case, dialysis was obviously planned but not recently begun. At the time my encounter the patient has no real specific complaint other than the previously reported weakness and low blood pressure. He denied fever or chills. He denied any respiratory symptoms. He was not complaining of pain. Apparently the patient had been placed on torsemide. He was also for time on Pedialyte which contains substantial potassium concentration. He became hyperkalemic on that. He has an ileostomy. -: Gradual Associated Symptoms: denies other symptoms Treatments Prior to Arrival: other (See above medication note) - Related Data Home Medications Medication Instructions Recorded Confirmed Last Taken Cholecalciferol (Vitamin D3) 1,000 unit PO DAILY 10/06/17 10/06/17 10/05/17 [Vitamin D3] Multivitamin with Folic Acid [One 400 mcg PO DAILY 10/06/17 10/06/17 10/05/17 Daily Multivitamin Tablet] raNITIdine HCL [Heartburn Relief] 150 mg PO BID 10/06/17 10/06/17 10/05/17 Previous Rx's Medication Instructions Recorded Last Taken Type Acetaminophen [Acetaminophen TAB] 650 mg PO Q4H PRN #15 tablet 10/08/17 Unknown Rx Baclofen [Lioresal] 10 mg PO TID #90 tablet 10/08/17 Unknown Rx Sodium Bicarbonate 650 mg PO BID #60 tablet 10/08/17 Unknown Rx calcitrioL [Rocaltrol] 0.25 mcg PO DAILY #30 capsule 10/08/17 Unknown Rx oxyCODONE /ACETAMINOPHEN [Percocet 1 tab PO Q6H PRN #12 tablet 10/08/17 Unknown Rx 5/325 mg] Allergies Allergy/AdvReac Type Severity Reaction Status Date / Time gabapentin Allergy Rash Verified 07/04/20 18:09 pregabalin [From Lyrica] Allergy Rash Verified 07/04/20 18:09 soy Allergy Unknown Verified 07/04/20 18:09 Iodinated Contrast Media AdvReac Swelling Verified 07/04/20 18:09 [Iodinated Contrast Media - IV Dye] ED Review of Systems ROS: Stated complaint: RENAL FAILURE STAGE 5, LOW BLOOD PRESSURE, DIZZY Other details as noted in HPI Constitutional: denies: chills, fever Eyes: denies: eye pain, eye discharge, vision change ENT: denies: ear pain, throat pain Respiratory: denies: cough, shortness of breath Cardiovascular: denies: chest pain, palpitations Endocrine: no symptoms reported, other (Significant weight loss) Gastrointestinal: other (Ileostomy). denies: abdominal pain, nausea Genitourinary: as per HPI (No complaint) Musculoskeletal: other. denies: back pain, arthralgia Skin: denies: rash, lesions Neurological: denies: headache, weakness, paresthesias Psychiatric: denies: anxiety, depression Hematological/Lymphatic: denies: easy bleeding, easy bruising ED Past Medical Hx - Past Medical History Hx Hypertension: Yes (No longer on meds due to hypotension) Hx Heart Attack/AMI: Yes () Hx Deep Vein Thrombosis: Yes (filter in lungs) Hx GERD: Yes Hx Liver Disease: No (Ulcerative Colitis with ileostomy) Hx Renal Disease: Yes (CKD STAGE IV) Hx Sickle Cell Disease: No Hx Arthritis: Yes Hx Seizures: No Hx Asthma: No Hx COPD: Yes (Per recent CXR- Hyperinflation c/w mild COPD- no inhaler use) Additional medical history: Ascending Aortic Aneurysm 4.2 being monitored, Stage IV Kidney Disease being monitored by Dr. Oscar, Tracheostomy, AARDS, Ventilator, Sepsis - Surgical History Hx Appendectomy: Yes Additional Surgical History: Ileostomy, IVC filter - Social History Smoking Status: Never Smoker Substance Use Type: None - Medications Home Medications: Home Medications Medication Instructions Recorded Confirmed Last Taken Type Cholecalciferol (Vitamin D3) 1,000 unit PO DAILY 10/06/17 10/06/17 10/05/17 History [Vitamin D3] Multivitamin with Folic Acid [One 400 mcg PO DAILY 10/06/17 10/06/17 10/05/17 History Daily Multivitamin Tablet] raNITIdine HCL [Heartburn Relief] 150 mg PO BID 10/06/17 10/06/17 10/05/17 History Acetaminophen [Acetaminophen TAB] 650 mg PO Q4H PRN #15 tablet 10/08/17 Unknown Rx Baclofen [Lioresal] 10 mg PO TID #90 tablet 10/08/17 Unknown Rx Sodium Bicarbonate 650 mg PO BID #60 tablet 10/08/17 Unknown Rx calcitrioL [Rocaltrol] 0.25 mcg PO DAILY #30 capsule 10/08/17 Unknown Rx oxyCODONE /ACETAMINOPHEN [Percocet 1 tab PO Q6H PRN #12 tablet 10/08/17 Unknown Rx 5/325 mg] ED Physical Exam - General Limitations: Physical Limitation General appearance: alert, in no apparent distress - Head Head exam: Present: atraumatic, normocephalic - Eye Eye exam: Present: normal appearance. Absent: scleral icterus - ENT ENT exam: Present: mucous membranes moist - Neck Neck exam: Present: normal inspection. Absent: tenderness, meningismus - Respiratory Respiratory exam: Present: normal lung sounds bilaterally. Absent: respiratory distress - Cardiovascular Cardiovascular Exam: Present: regular rate, normal rhythm. Absent: systolic murmur, diastolic murmur, rubs, gallop - GI/Abdominal GI/Abdominal exam: Present: soft, normal bowel sounds, other (Ileostomy in place). Absent: distended, tenderness, guarding, rebound - Rectal Rectal exam: Present: deferred - Extremities Exam Extremities exam: Present: normal inspection - Back Exam Back exam: Present: normal inspection - Neurological Exam Neurological exam: Present: alert, oriented X3, CN II-XII intact. Absent: motor sensory deficit - Psychiatric Psychiatric exam: Present: normal affect, normal mood - Skin Skin exam: Present: warm, dry, intact, normal color. Absent: rash ED Course Vital Signs 07/04/20 07/04/20 07/05/20 18:07 23:38 06:26 Temperature 97.8 F 98.0 F Pulse Rate 92 H 82 75 Respiratory 18 17 16 Rate Blood Pressure 93/67 102/69 Blood Pressure 108/74 [Right] O2 Sat by Pulse 97 98 99 Oximetry - Reevaluation(s) Reevaluation #1: Patient was hyponatremic with an increased anion gap and low chloride. He was given 1 amp of bicarb. I discussed his case with Dr. Oscar the tower technician. He recommended a half-normal saline drip with bicarb at 75 cc an hour. Patient will be admitted to the hospital service for further care and evaluation. 07/05/20 11:43 ED Medical Decision Making - Lab Data Result diagrams: 07/04/20 18:46 07/04/20 18:46 Laboratory Results - last 24 hr 07/04/20 07/04/20 07/04/20 18:46 18:46 18:46 WBC 8.0 RBC 4.39 Hgb 14.9 Hct 43.0 MCV 98 H MCH 34 H MCHC 35 H RDW 13.4 Plt Count 189 Lymph % (Auto) 11.3 L [place] % (Auto) 9.2 H Eos % (Auto) 0.3 Baso % (Auto) 0.2 Lymph # (Auto) 0.9 L [place] # (Auto) 0.7 Eos # (Auto) 0.0 Baso # (Auto) 0.0 Seg Neutrophils % 79.0 H Seg Neutrophils # 6.3 VBG pH 7.283 L Sodium 129 L Potassium 4.8 Chloride 87.4 L Carbon Dioxide 17 L Anion Gap 29 BUN 142 H Creatinine 8.6 H Estimated GFR 7 BUN/Creatinine Ratio 17 Glucose 126 H Calcium 10.3 H Magnesium 3.10 H Total Bilirubin 0.60 AST 23 ALT 45 Alkaline Phosphatase 558 H Troponin T 0.048 H NT-Pro-B Natriuret Pep 649.6 Total Protein 9.2 H Albumin 4.7 Albumin/Globulin Ratio 1.0 Triglycerides 62 Cholesterol 140 LDL Cholesterol Direct 55 HDL Cholesterol 95 H Cholesterol/HDL Ratio 1.47 - EKG Data -: EKG Interpreted by Me EKG shows normal: sinus rhythm Rate: normal - EKG Data Interpretation: other (Consistent with old inferior wall benzo) Critical care attestation.: If time is entered above; I have spent that time in minutes in the direct care of this critically ill patient, excluding procedure time. ED Disposition Clinical Impression: Hyponatremia, Metabolic acidosis, increased anion gap [id number] renal failure Qualifiers: Acute renal failure type: unspecified Chronic kidney disease stage: stage 4 (severe) Qualified Code(s): N17.9 - Acute kidney failure, unspecified; N18.4 - Chronic kidney disease, stage 4 (severe) Disposition: 09 OP ADMIT IP TO THIS HOSP Is pt being admited?: Yes Does the pt Need Aspirin: No Condition: Stable Time of Disposition: 11:47
[2020-07-05] MEDS ORDERED: SODIUM BICARB 8.4% 50 MEQ/50 ML SYRINGE IV ONE (08:36)
[2020-07-05] MEDS ORDERED: SODIUM CHLORIDE 0.45% IV SCH (12:00)
[2020-07-05] MEDS ORDERED: SODIUM BICARBONATE IV SCH (12:00)
[2020-07-05] MEDS ORDERED: ACETAMINOPHEN 325 MG TAB PO PRN ×2 (12:12→12:15)
[2020-07-05] MEDS ORDERED: ALBUTEROL 2.5 MG/3 ML NEBU IH PRN (12:12)
[2020-07-05] MEDS ORDERED: ONDANSETRON 4 MG/2 ML INJ IV PRN (12:12)
--- NOTE | 2020-07-05 12:17 | History and Physical Report ---
History of Present Illness Chief complaint: I feel weak and my kidneys are getting worse History of present illness: 74 YO Male with CKD S/P Intermittent Dialysis, GERD, HTN, MN, OA, UC presents to ED for evaluation. Patient reports "I have been feeling weak". Patient states that he had experienced generalized weakness over the past 1 week with persistently worsening symptoms over the same timeframe. Patient notified his pinsetter mechanic automatic who instructed him to seek further care at [facility]. Patient transported to [facility] via private vehicle for further care and evaluation of the aforementioned symptoms. The patient was seen and evaluated in the emergency department. All lab and imaging studies reviewed. The patient was found to have end-stage renal disease in need of dialysis. Nephrology team consulted in ED. Patient is pending dialysis access placement as per nephrology team recommendations. Patient denies fever, chills, chest pain, palpitation, productive cough, skin rash, recent ill contacts, or known exposure to COVID-19. Prior admission on 10/06/2017 reviewed. All medication listed at time of admission has been reconciled. Advanced care planning conducted in ED. Past History Past Medical History: acute MN, arthritis, GERD, hypertension, renal failure, other (See HPI) Past Surgical History: appendectomy, Other (Ileostomy, IVC filter placement) Social history: . denies: smoking, alcohol abuse, prescription drug abuse Family history: diabetes, hypertension Medications and Allergies Allergies Allergy/AdvReac Type Severity Reaction Status Date / Time gabapentin Allergy Rash Verified 07/04/20 18:09 pregabalin [From Lyrica] Allergy Rash Verified 07/04/20 18:09 soy Allergy Unknown Verified 07/04/20 18:09 Iodinated Contrast Media AdvReac Swelling Verified 07/04/20 18:09 [Iodinated Contrast Media - IV Dye] Home Medications Medication Instructions Recorded Confirmed Last Taken Type Cholecalciferol (Vitamin D3) 1,000 unit PO DAILY 10/06/17 10/06/17 10/05/17 History [Vitamin D3] Multivitamin with Folic Acid [One 400 mcg PO DAILY 10/06/17 10/06/17 10/05/17 History Daily Multivitamin Tablet] raNITIdine HCL [Heartburn Relief] 150 mg PO BID 10/06/17 10/06/17 10/05/17 History Acetaminophen [Acetaminophen TAB] 650 mg PO Q4H PRN #15 tablet 10/08/17 Unknown Rx Baclofen [Lioresal] 10 mg PO TID #90 tablet 10/08/17 Unknown Rx Sodium Bicarbonate 650 mg PO BID #60 tablet 10/08/17 Unknown Rx calcitrioL [Rocaltrol] 0.25 mcg PO DAILY #30 capsule 10/08/17 Unknown Rx oxyCODONE /ACETAMINOPHEN [Percocet 1 tab PO Q6H PRN #12 tablet 10/08/17 Unknown Rx 5/325 mg] Active Meds: Active Medications Acetaminophen (Acetaminophen 325 Mg Tab) 650 mg PO Q4H PRN PRN Reason: Pain MILD(1-3)/Fever >100.5/ROSS Acetaminophen (Acetaminophen 325 Mg Tab) 650 mg PO Q4H PRN PRN Reason: Pain MILD(1-3)/Fever >100.5/ROSS Albuterol (Albuterol 2.5 Mg/3 Ml Nebu) 2.5 mg IH Q4HRT PRN PRN Reason: Shortness Of Breath Calcitriol (Calcitriol 0.25 Mcg Cap) 0.25 mcg PO DAILY [facility] Sodium Bicarbonate 50 meq/ (Sodium Chloride) 1,050 mls @ 75 mls/hr IV DIRECT MIMI Miscellaneous Medication (Cholecalciferol (Vitamin D3) [Vitamin D3]) 1,000 unit PO DAILY [facility] Miscellaneous Medication (Ranitidine Hcl [Heartburn Relief]) 150 mg PO BID [facility] Multivitamins (Multivitamins ,Therapeutic Tab) each PO DAILY MIMI Ondansetron HCl (Ondansetron 4 Mg/2 Ml Inj) 4 mg IV Q8H PRN PRN Reason: Nausea And Vomiting Oxycodone/Acetaminophen (Oxycodone /Acetaminophen 5-325mg Tab) 1 tab PO Q6H PRN PRN Reason: Pain , Severe (7-10) Sodium Bicarbonate (Sodium Bicarbonate 650 Mg Tab) 650 mg PO BID MIMI Sodium Chloride (Sodium Chloride 0.9% 10 Ml Flush Syringe) 10 ml IV BID MIIM Sodium Chloride (Sodium Chloride 0.9% 10 Ml Flush Syringe) 10 ml IV PRN PRN PRN Reason: LINE FLUSH Review of Systems Constitutional: weakness, no weight loss, no weight gain, no fever, no chills Ears, nose, mouth and throat: no ear pain, no ear discharge, no tinnitis, no decreased hearing, no nasal congestion Cardiovascular: no chest pain, no palpitations, no rapid/irregular heart beat, no edema, no syncope Respiratory: no cough, no cough with sputum, no shortness of breath Gastrointestinal: no abdominal pain, no nausea, no diarrhea, no constipation, no change in bowel habits Genitourinary Male: no hematuria, no flank pain, no discharge, no urinary hesitancy, no incontinence Rectal: no pain, no incontinence, no bleeding Musculoskeletal: no shooting arm pain, no arm numbness/tingling, no low back pain Integumentary: no rash, no pruritis, no redness, no sores, no wounds Neurological: no head injury, no paralysis, no weakness, no numbness, no tingling, no syncope, no tremors Psychiatric: no anxiety, no memory loss, no sleep disturbances, no change in appetite, no change in libido, no suicidal ideation Endocrine: no cold intolerance, no heat intolerance, no excessive thirst, no polyuria, no nocturia, no excessive sweating Hematologic/Lymphatic: no easy bruising, no easy bleeding Allergic/Immunologic: no urticaria Exam - Constitutional Vitals: Temp Pulse Resp BP Pulse Ox 98.0 F 75 16 108/74 99 07/04/20 23:38 07/05/20 06:26 07/05/20 06:26 07/05/20 06:26 07/05/20 06:26 General appearance: Present: mild distress - EENT Eyes: Present: PERRL ENT: hearing intact, clear oral mucosa - Neck Neck: Present: supple, normal ROM - Respiratory Respiratory effort: normal Respiratory: bilateral: CTA - Cardiovascular Heart Sounds: Present: S1 & S2. Absent: rub, click - Extremities Extremities: pulses symmetrical, No edema Peripheral Pulses: within normal limits - Abdominal General gastrointestinal: Present: soft, non-tender, non-distended, normal bowel sounds Male genitourinary: Present: normal - Integumentary Integumentary: Present: clear, warm, dry - Musculoskeletal Musculoskeletal: generalized weakness - Psychiatric Psychiatric: appropriate mood/affect, intact judgment & insight - Neurologic Neurologic: CNII-XII intact, moves all extremities HEART Score - HEART Score Troponin: Troponin T 0.048 ng/mL (0.00-0.029) H 07/04/20 18:46 Results - Labs CBC & Chem 7: 07/04/20 18:46 07/04/20 18:46 Labs: Abnormal lab results 07/04/20 07/04/20 07/04/20 Range/Units 18:46 18:46 18:46 MCV 98 H (84-94) fl MCH 34 H (28-32) pg MCHC 35 H (32-34) % Lymph % (Auto) 11.3 L (13.4-35.0) % [place] % (Auto) 9.2 H (0.0-7.3) % Lymph # (Auto) 0.9 L (1.2-5.4) K/mm3 Seg Neutrophils % 79.0 H (40.0-70.0) % VBG pH 7.283 L (7.320-7.420) Sodium 129 L (137-145) mmol/L Chloride 87.4 L (98-107) mmol/L Carbon Dioxide 17 L (22-30) mmol/L BUN 142 H (9-20) mg/dL Creatinine 8.6 H (0.8-1.3) mg/dL Glucose 126 H (75-100) mg/dL Calcium 10.3 H (8.4-10.2) mg/dL Magnesium 3.10 H (1.7-2.3) mg/dL Alkaline Phosphatase 558 H (35-129) units/L Troponin T 0.048 H (0.00-0.029) ng/mL Total Protein 9.2 H (6.3-8.2) g/dL HDL Cholesterol 95 H (40-59) mg/dL Assessment and Plan - Patient Problems (1) End stage renal disease Current Visit: No Status: Acute Plan to address problem: Nephrology team consulted in ED, strict I's/O, monitor urine output every shift, avoid nephrotoxic agents, further care as per nephrology team. Dialysis as per nephrology team. (2) Problem with dialysis access Current Visit: Yes Status: Acute Qualifiers: Encounter type: initial encounter Qualified Code(s): T82.898A - Other specified complication of vascular prosthetic devices, implants and grafts, initial encounter Plan to address problem: Dialysis access as per nephrology team recommendations. (3) DVT prophylaxis Current Visit: No Status: Acute Plan to address problem: SCD to bilateral lower extremities while in bed, (4) Advance care planning Current Visit: Yes Status: Acute Plan to address problem: Disease education conducted, care plan discussed, diagnosis discussed, prognosis discussed,
[2020-07-05 15:59] LABS: Bacteria,Urine 2+ /HPF (Negative); Bilirubin,Urine NEG (Negative); Blood,Urine MOD (Negative); Color,Urine Yellow (Yellow); Mucus,Urine FEW /HPF; Urobilinogen,Urine < 2.0 mg/dL (<2.0)
[2020-07-05 16:03] LABS: WBC,Urine > 182.0 /HPF (0.0-6.0)
--- NOTE | 2020-07-05 17:03 | Ultrasound Report ---
ULTRASOUND RENAL INDICATION: ANISA COMPARISON: Renal ultrasound 10/08/2017. FINDINGS: RIGHT KIDNEY: Size: 11.1 cm. Echogenicity: Moderately increased, similar to prior. Cortical thickness: Normal. Stones: None. Hydronephrosis: None. Cyst or mass: 4.6 cm simple cyst is seen in the upper pole. LEFT KIDNEY: Size: 10.1 cm. Echogenicity: Mildly increased, similar to prior. Cortical thickness: Mildly thin, similar to prior. Stones: None. Hydronephrosis: None. Cyst or mass: None. Urinary Bladder: No significant abnormality. Free Fluid: None. Additional Findings: None. IMPRESSION: No acute sonographic abnormality of the kidneys. Mild chronic changes similar to prior. S imple cyst on the right. Signer Name: Mendez Wang MD Signed: 07/05/2020 4:58 PM Workstation Name: [id number]
[2020-07-05] MEDS ORDERED: RANITIDINE HCL 150 MG PO SCH (22:00)
[2020-07-05] MEDS: SODIUM BICARBONATE 650 MG TAB PO SCH (22:49)
[2020-07-06] MEDS: SODIUM BICARBONATE 150 MEQ in DEXTROSE 5% IN WATER 1,000 ML IV SCH ×2 (06:01→22:30)
[2020-07-06 08:18] LABS: Calcium 9.3 mg/dL (8.4-10.2)
--- NOTE | 2020-07-06 09:45 | Progress Note ---
Assessment and Plan Assessment and plan: 74 YO Male with CKD S/P Intermittent Dialysis, GERD, HTN, LA, OA, UC presents to ED for evaluation. Patient reports "I have been feeling weak". Patient states that he had experienced generalized weakness over the past 1 week with persistently worsening symptoms over the same timeframe. Patient notified his infection preventionist who instructed him to seek further care at [facility]. Patient transported to [facility] via private vehicle for further care and evaluation of the aforementioned symptoms. The patient was seen and evaluated in the emergency department. All lab and imaging studies reviewed. The patient was found to have end-stage renal disease in need of dialysis. Nephrology team consulted in ED. Patient is pending dialysis access placement as per nephrology team recommendations. Patient denies fever, chills, chest pain, palpitation, productive cough, skin rash, recent ill contacts, or known exposure to COVID-19. Prior admission on 10/06/2017 reviewed. All medication listed at time of admission has been reconciled. Advanced care planning conducted in ED. [id number] renal disease Hyponatremia No dialysis access Acute cystitis Hypercalcemia Hypotension Otherwise hx of Hypertension Ulcerative Colitis Acute metabolic Acidosis Type 2 NSTEMI GERD Plan Continue supportive care Obtain Vascular consult for access Continue abx and await, cultures Continue current management Feature Writer consulted for possible coverage DVT/GI prophy History Interval history: Patient admitted with generalized weakness. Hospitalist Physical - Physical exam Narrative exam: General appearance: Present: mild distress - EENT Eyes: Present: PERRL ENT: hearing intact, clear oral mucosa - Neck Neck: Present: supple, normal ROM - Respiratory Respiratory effort: normal Respiratory: bilateral: CTA - Cardiovascular Heart Sounds: Present: S1 & S2. Absent: rub, click - Extremities Extremities: pulses symmetrical, No edema Peripheral Pulses: within normal limits - Abdominal General gastrointestinal: Present: Left-sided colostomy soft, non-tender, non- distended, normal bowel sounds Male genitourinary: Present: normal - Integumentary Integumentary: Present: Multiple lesions well-healed scars on the left upper extremity clear, warm, dry - Musculoskeletal Musculoskeletal: generalized weakness - Psychiatric Psychiatric: appropriate mood/affect, intact judgment & insight - Neurologic Neurologic: CNII-XII intact, moves all extremities - Constitutional Vitals: Temp Pulse Resp BP Pulse Ox 98.3 F 84 17 94/67 98 07/06/20 05:03 07/06/20 05:03 07/06/20 05:03 07/06/20 05:03 07/06/20 05:03 General appearance: Present: mild distress HEART Score - HEART Score Troponin: Troponin T 0.048 ng/mL (0.00-0.029) H 07/04/20 18:46 Results - Labs CBC & Chem 7: 07/04/20 18:46 07/06/20 06:50 Labs: Laboratory Last Values WBC 8.0 K/mm3 (4.5-11.0) 07/04/20 18:46 RBC 4.39 M/mm3 (3.65-5.03) 07/04/20 18:46 Hgb 14.9 gm/dl (11.8-15.2) 07/04/20 18:46 Hct 43.0 % (35.5-45.6) 07/04/20 18:46 MCV 98 fl (84-94) H 07/04/20 18:46 MCH 34 pg (28-32) H 07/04/20 18:46 MCHC 35 % (32-34) H 07/04/20 18:46 RDW 13.4 % (13.2-15.2) 07/04/20 18:46 Plt Count 189 K/mm3 (140-440) 07/04/20 18:46 Lymph % (Auto) 11.3 % (13.4-35.0) L 07/04/20 18:46 [place] % (Auto) 9.2 % (0.0-7.3) H 07/04/20 18:46 Eos % (Auto) 0.3 % (0.0-4.3) 07/04/20 18:46 Baso % (Auto) 0.2 % (0.0-1.8) 07/04/20 18:46 Lymph # (Auto) 0.9 K/mm3 (1.2-5.4) L 07/04/20 18:46 [place] # (Auto) 0.7 K/mm3 (0.0-0.8) 07/04/20 18:46 Eos # (Auto) 0.0 K/mm3 (0.0-0.4) 07/04/20 18:46 Baso # (Auto) 0.0 K/mm3 (0.0-0.1) 07/04/20 18:46 Seg Neutrophils % 79.0 % (40.0-70.0) H 07/04/20 18:46 Seg Neutrophils # 6.3 K/mm3 (1.8-7.7) 07/04/20 18:46 VBG pH 7.283 (7.320-7.420) L 07/04/20 18:46 Sodium 129 mmol/L (137-145) L 07/06/20 06:50 Potassium 3.7 mmol/L (3.6-5.0) D 07/06/20 06:50 Chloride 85.9 mmol/L (98-107) L 07/06/20 06:50 Carbon Dioxide 23 mmol/L (22-30) 07/06/20 06:50 Anion Gap 24 mmol/L 07/06/20 06:50 BUN 160 mg/dL (9-20) H 07/06/20 06:50 Creatinine 7.8 mg/dL (0.8-1.3) H 07/06/20 06:50 Estimated GFR 8 ml/min 07/06/20 06:50 BUN/Creatinine Ratio 21 % 07/06/20 06:50 Glucose 106 mg/dL (75-100) H 07/06/20 06:50 Calcium 9.3 mg/dL (8.4-10.2) 07/06/20 06:50 Magnesium 3.10 mg/dL (1.7-2.3) H 07/04/20 18:46 Total Bilirubin 0.60 mg/dL (0.1-1.2) 07/04/20 18:46 AST 23 units/L (5-40) 07/04/20 18:46 ALT 45 units/L (7-56) 07/04/20 18:46 Alkaline Phosphatase 558 units/L (35-129) H 07/04/20 18:46 Troponin T 0.048 ng/mL (0.00-0.029) H 07/04/20 18:46 NT-Pro-B Natriuret Pep 649.6 pg/mL (0-900) 07/04/20 18:46 Total Protein 9.2 g/dL (6.3-8.2) H 07/04/20 18:46 Albumin 4.7 g/dL (3.9-5) 07/04/20 18:46 Albumin/Globulin Ratio 1.0 % 07/04/20 18:46 Triglycerides 62 mg/dL (2-149) 07/04/20 18:46 Cholesterol 140 mg/dL (50-199) 07/04/20 18:46 LDL Cholesterol Direct 55 mg/dL (50-130) 07/04/20 18:46 HDL Cholesterol 95 mg/dL (40-59) H 07/04/20 18:46 Cholesterol/HDL Ratio 1.47 % 07/04/20 18:46 Urine Color Yellow (Yellow) 07/05/20 15:30 Urine Turbidity Cloudy (Clear) 07/05/20 15:30 Urine pH 5.0 (5.0-7.0) 07/05/20 15:30 Ur Specific [place] 1.012 (1.003-1.030) 07/05/20 15:30 Urine Protein 30 mg/dl mg/dL (Negative) 07/05/20 15:30 Urine Glucose (UA) Neg mg/dL (Negative) 07/05/20 15:30 Urine Ketones Neg mg/dL (Negative) 07/05/20 15:30 Urine Blood Mod (Negative) 07/05/20 15:30 Urine Nitrite Neg (Negative) 07/05/20 15:30 Urine Bilirubin Neg (Negative) 07/05/20 15:30 Urine Urobilinogen < 2.0 mg/dL (<2.0) 07/05/20 15:30 Ur Leukocyte Esterase Lg (Negative) 07/05/20 15:30 Urine WBC (Auto) > 182.0 /HPF (0.0-6.0) H 07/05/20 15:30 Urine RBC (Auto) 14.0 /HPF (0.0-6.0) 07/05/20 15:30 Urine Bacteria (Auto) 2+ /HPF (Negative) 07/05/20 15:30 Urine WBC Clumps 2+ /HPF 07/05/20 15:30 Urine Mucus Few /HPF 07/05/20 15:30 Urine Yeast (Budding) 3+ /HPF 07/05/20 15:30 Heath/IV: Voiding Method Urinal Active Medications - Current Medications Current Medications: Generic Name Dose Route Start Last Admin Trade Name Freq PRN Reason Stop Dose Admin Acetaminophen 650 mg 07/05/20 12:12 Acetaminophen 325 Mg Tab PO Q4H PRN Pain MILD(1-3)/Fever >100.5/ROSS Albuterol 2.5 mg 07/05/20 12:12 Albuterol 2.5 Mg/3 Ml Nebu IH Q4HRT PRN Shortness Of Breath Calcitriol 0.25 mcg 07/06/20 10:00 Calcitriol 0.25 Mcg Cap PO DAILY MIMI Cholecalciferol 1,000 unit 07/06/20 10:00 Cholecalciferol (Vit D3) 1000 Unit (25 Mcg) Tab PO DAILY MIMI Famotidine 20 mg 07/06/20 10:00 Famotidine 20 Mg Tab PO QDAY MIMI Sodium Bicarbonate 150 meq/ 1,150 mls @ 125 mls/hr 07/05/20 15:30 07/06/20 06:01 Dextrose IV 07/08/20 00:41 125 mls/hr DIRECT MIMI Administration Multivitamins 1 each 07/06/20 10:00 Multivitamins ,Therapeutic Tab PO DAILY MIMI Ondansetron HCl 4 mg 07/05/20 12:12 Ondansetron 4 Mg/2 Ml Inj IV Q8H PRN Nausea And Vomiting Oxycodone/Acetaminophen 1 tab 07/05/20 12:15 Oxycodone /Acetaminophen 5-325mg Tab PO Q6H PRN Pain , Severe (7-10) Sodium Bicarbonate 650 mg 07/05/20 22:00 07/05/20 22:49 Sodium Bicarbonate 650 Mg Tab PO 650 mg BID MIMI Administration Sodium Chloride 10 ml 07/05/20 22:00 07/05/20 22:49 Sodium Chloride 0.9% 10 Ml Flush Syringe IV 10 ml BID MIMI Administration Sodium Chloride 10 ml 07/05/20 12:12 Sodium Chloride 0.9% 10 Ml Flush Syringe IV PRN PRN LINE FLUSH
[2020-07-06] MEDS ORDERED: CHOLECALCIFEROL 1000 UNIT PO SCH (10:00)
[2020-07-06] MEDS: SODIUM BICARBONATE 650 MG TAB PO SCH ×2 (10:34→22:22)
[2020-07-06] MEDS: CALCITRIOL 0.25 MCG CAP PO SCH (10:34)
[2020-07-06] MEDS: FAMOTIDINE 20 MG TAB PO SCH (10:34)
[2020-07-06] MEDS: MULTIVITAMINS ,THERAPEUTIC TAB PO SCH (10:35)
[2020-07-06] MEDS: CHOLECALCIFEROL (VIT D3) 1000 UNIT (25 mcg) TAB PO SCH (10:35)
--- NOTE | 2020-07-06 11:18 | Consultation ---
History of Present Illness - Reason for Consult Consult date: 07/06/20 acute renal failure - History of Present Illness This is a 74-year-old man with CKD, hypertension, coronary artery disease, ulcerative colitis, osteoarthritis who presented to the emergency department upon the instruction of his engineering instructor due to recent episodes of hypotension and dizziness. In the ER he was noted to have worsening renal failure and was subsequently admitted for further workup. Nephrology was consulted for acute kidney injury. Patient denies nausea, vomiting, diarrhea, decreased urine output and hematuria. Past History Past Medical History: acute ND, arthritis, GERD, hypertension, renal failure, other (See HPI) Past Surgical History: appendectomy, Other (Ileostomy, IVC filter placement) Social history: . denies: smoking, alcohol abuse, prescription drug abuse Family history: diabetes, hypertension Medications and Allergies Allergies Allergy/AdvReac Type Severity Reaction Status Date / Time gabapentin Allergy Rash Verified 07/04/20 18:09 pregabalin [From Lyrica] Allergy Rash Verified 07/04/20 18:09 soy Allergy Unknown Verified 07/04/20 18:09 Iodinated Contrast Media AdvReac Swelling Verified 07/04/20 18:09 [Iodinated Contrast Media - IV Dye] Home Medications Medication Instructions Recorded Confirmed Last Taken Type Cholecalciferol (Vitamin D3) 1,000 unit PO DAILY 10/06/17 07/05/20 07/04/20 History [Vitamin D3] Multivitamin with Folic Acid [One 400 mcg PO DAILY 10/06/17 07/05/20 10/05/17 History Daily Multivitamin Tablet] Acetaminophen [Acetaminophen TAB] 650 mg PO Q4H PRN #15 tablet 10/08/17 07/05/20 Unknown Rx Sodium Bicarbonate 650 mg PO BID #60 tablet 10/08/17 07/05/20 07/04/20 Rx calcitrioL [Rocaltrol] 0.25 mcg PO DAILY #30 capsule 10/08/17 07/05/20 07/03/20 Rx Ferrous Sulfate [Ferrous Sulfate 324 mg PO DAILY 07/05/20 07/05/20 07/04/20 History 324 MG] Active Meds: Active Medications Acetaminophen (Acetaminophen 325 Mg Tab) 650 mg PO Q4H PRN PRN Reason: Pain MILD(1-3)/Fever >100.5/ROSS Albuterol (Albuterol 2.5 Mg/3 Ml Nebu) 2.5 mg IH Q4HRT PRN PRN Reason: Shortness Of Breath Calcitriol (Calcitriol 0.25 Mcg Cap) 0.25 mcg PO DAILY [facility] Last Admin: 07/06/20 10:34 Dose: 0.25 mcg Documented by: Cholecalciferol (Cholecalciferol (Vit D3) 1000 Unit (25 Mcg) Tab) 1,000 unit PO DAILY [facility] Last Admin: 07/06/20 10:35 Dose: 1,000 unit Documented by: Famotidine (Famotidine 20 Mg Tab) 20 mg PO QDAY [facility] Last Admin: 07/06/20 10:34 Dose: 20 mg Documented by: Sodium Bicarbonate 150 meq/ (Dextrose) 1,150 mls @ 125 mls/hr IV DIRECT [facility] Stop: 07/08/20 00:41 Last Admin: 07/06/20 06:01 Dose: 125 mls/hr Documented by: Multivitamins (Multivitamins ,Therapeutic Tab) 1 each PO DAILY [facility] Last Admin: 07/06/20 10:35 Dose: 1 each Documented by: Ondansetron HCl (Ondansetron 4 Mg/2 Ml Inj) 4 mg IV Q8H PRN PRN Reason: Nausea And Vomiting Oxycodone/Acetaminophen (Oxycodone /Acetaminophen 5-325mg Tab) 1 tab PO Q6H PRN PRN Reason: Pain , Severe (7-10) Sodium Bicarbonate (Sodium Bicarbonate 650 Mg Tab) 650 mg PO BID [facility] Last Admin: 07/06/20 10:34 Dose: 650 mg Documented by: Sodium Chloride (Sodium Chloride 0.9% 10 Ml Flush Syringe) 10 ml IV BID [facility] Last Admin: 07/06/20 10:35 Dose: 10 ml Documented by: Sodium Chloride (Sodium Chloride 0.9% 10 Ml Flush Syringe) 10 ml IV PRN PRN PRN Reason: LINE FLUSH Review of Systems Constitutional: no fever, no chills Ears, nose, mouth and throat: no nasal congestion, no nasal discharge Cardiovascular: lightheadedness, no chest pain Respiratory: no cough, no congestion Gastrointestinal: no nausea, no vomiting Genitourinary Male: no dysuria, no hematuria Musculoskeletal: no muscle weakness, no muscle cramps Integumentary: no rash, no pruritis Neurological: no weakness, no parathesias Psychiatric: no anxiety, no disorientation Hematologic/Lymphatic: no easy bruising, no easy bleeding Allergic/Immunologic: no urticaria, no allergic rhinitis Exam - Vital Signs Vital signs: Vital Signs Temp Pulse Resp BP Pulse Ox 97.8 F 92 H 18 93/67 97 07/04/20 18:07 07/04/20 18:07 07/04/20 18:07 07/04/20 18:07 07/04/20 18:07 - Physical Exam Narrative exam: General appearance: No acute distress EENT: Anicteric sclera, hearing intact, dry mucosa Neck: Supple Respiratory: Normal effort, CTA bilaterally Cardiovascular: RRR, no rub Extremities: No edema Abdominal: Soft, nontender, colostomy pouch noted Integumentary: Dry, intact Musculoskeletal: No joint swelling or erythema Psychiatric: Appropriate mood/affect, judgment intact Neurologic: No focal deficits, moves all extremities Results - Lab Results 07/04/20 18:46 07/06/20 06:50 Most recent lab results Calcium 9.3 mg/dL (8.4-10.2) 07/06/20 06:50 Magnesium 3.10 mg/dL (1.7-2.3) H 07/04/20 18:46 Assessment and Plan Assessment Acute kidney injury on CKD, last known creatinine was 2.9 in December 2019. Ultrasound reviewed - no obstruction. Hypotension Hypercalcemia Acidosis Hyponatremia Elevated alkaline phosphatase Recommendations No immediate indication for dialysis Continue IV hydration Hold diuretics Keep MAP>65 Daily lab check Strict I/O Renally dose medications Avoid nephrotoxins Renal diet Recommend w/u for elevated alkaline phosphatase - consider abd ultrasound - defer to primary
--- NOTE | 2020-07-06 11:32 | Consultation ---
History of Present Illness - Reason for Consult Consult date: 07/06/20 End-stage renal disease - History of Present Illness Patient with a history of end-stage renal disease being managed in the outpatient setting. He had been doing well however presented with some weakness that is now resolved. The patient has had an attempted Diallo placed in his left wrist by Dr. Bonner at [facility]. Currently has no access. No complaints at this time. Past History Past Medical History: acute CT, arthritis, GERD, hypertension, renal failure, other (See HPI) Past Surgical History: appendectomy, Other (Ileostomy, IVC filter placement) Social history: . denies: smoking, alcohol abuse, prescription drug abuse Family history: diabetes, hypertension Medications and Allergies Allergies Allergy/AdvReac Type Severity Reaction Status Date / Time gabapentin Allergy Rash Verified 07/04/20 18:09 pregabalin [From Lyrica] Allergy Rash Verified 07/04/20 18:09 soy Allergy Unknown Verified 07/04/20 18:09 Iodinated Contrast Media AdvReac Swelling Verified 07/04/20 18:09 [Iodinated Contrast Media - IV Dye] Home Medications Medication Instructions Recorded Confirmed Last Taken Type Cholecalciferol (Vitamin D3) 1,000 unit PO DAILY 10/06/17 07/05/20 07/04/20 History [Vitamin D3] Multivitamin with Folic Acid [One 400 mcg PO DAILY 10/06/17 07/05/20 10/05/17 History Daily Multivitamin Tablet] Acetaminophen [Acetaminophen TAB] 650 mg PO Q4H PRN #15 tablet 10/08/17 07/05/20 Unknown Rx Sodium Bicarbonate 650 mg PO BID #60 tablet 10/08/17 07/05/20 07/04/20 Rx calcitrioL [Rocaltrol] 0.25 mcg PO DAILY #30 capsule 10/08/17 07/05/20 07/03/20 Rx Ferrous Sulfate [Ferrous Sulfate 324 mg PO DAILY 07/05/20 07/05/20 07/04/20 History 324 MG] Active Meds: Active Medications Acetaminophen (Acetaminophen 325 Mg Tab) 650 mg PO Q4H PRN PRN Reason: Pain MILD(1-3)/Fever >100.5/ROSS Albuterol (Albuterol 2.5 Mg/3 Ml Nebu) 2.5 mg IH Q4HRT PRN PRN Reason: Shortness Of Breath Calcitriol (Calcitriol 0.25 Mcg Cap) 0.25 mcg PO DAILY [facility] [place] Last Admin: 07/06/20 10:34 Dose: 0.25 mcg Documented by: Cholecalciferol (Cholecalciferol (Vit D3) 1000 Unit (25 Mcg) Tab) 1,000 unit PO DAILY [facility] [place] Last Admin: 07/06/20 10:35 Dose: 1,000 unit Documented by: Famotidine (Famotidine 20 Mg Tab) 20 mg PO QDAY [facility] [place] Last Admin: 07/06/20 10:34 Dose: 20 mg Documented by: Sodium Bicarbonate 150 meq/ (Dextrose) 1,150 mls @ 125 mls/hr IV DIRECT [facility] [place] Stop: 07/08/20 00:41 Last Admin: 07/06/20 06:01 Dose: 125 mls/hr Documented by: Multivitamins (Multivitamins ,Therapeutic Tab) 1 each PO DAILY [facility] [place] Last Admin: 07/06/20 10:35 Dose: 1 each Documented by: Ondansetron HCl (Ondansetron 4 Mg/2 Ml Inj) 4 mg IV Q8H PRN PRN Reason: Nausea And Vomiting Oxycodone/Acetaminophen (Oxycodone /Acetaminophen 5-325mg Tab) 1 tab PO Q6H PRN PRN Reason: Pain , Severe (7-10) Sodium Bicarbonate (Sodium Bicarbonate 650 Mg Tab) 650 mg PO BID [facility] [place] Last Admin: 07/06/20 10:34 Dose: 650 mg Documented by: Sodium Chloride (Sodium Chloride 0.9% 10 Ml Flush Syringe) 10 ml IV BID [facility] [place] Last Admin: 07/06/20 10:35 Dose: 10 ml Documented by: Sodium Chloride (Sodium Chloride 0.9% 10 Ml Flush Syringe) 10 ml IV PRN PRN PRN Reason: LINE FLUSH Review of Systems All systems: negative Exam - Constitutional Vitals: Temp Pulse Resp BP Pulse Ox 98.3 F 84 17 94/67 98 07/06/20 05:03 07/06/20 05:03 07/06/20 05:03 07/06/20 05:03 07/06/20 05:03 General appearance: Present: no acute distress - EENT Eyes: Present: EOM intact ENT: hearing intact - Neck Neck: Present: supple, normal ROM - Respiratory Respiratory effort: normal - Extremities Extremities: abnormal - Abdominal General gastrointestinal: Present: deferred Male genitourinary: Present: deferred - Rectal Rectal Exam: deferred - Psychiatric Psychiatric: appropriate mood/affect, cooperative Results - Labs CBC & Chem 7: 07/04/20 18:46 07/06/20 06:50 Labs: Abnormal lab results 07/05/20 07/06/20 Range/Units 15:30 06:50 Sodium 129 L (137-145) mmol/L Chloride 85.9 L (98-107) mmol/L BUN 160 H (9-20) mg/dL Creatinine 7.8 H (0.8-1.3) mg/dL Glucose 106 H (75-100) mg/dL Urine WBC (Auto) > 182.0 H (0.0-6.0) /HPF Assessment and Plan 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 At this time, holding off on dialysis initiation. We are available for assistance as needed. Thank you.
--- NOTE | 2020-07-06 11:52 | Electrocardiograph Report ---
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
[2020-07-07 06:38] LABS: Hematocrit 37.4 % (35.5-45.6); Hemoglobin 13.1 gm/dl (11.8-15.2); Mean Corpuscular HGB Conc 35 % (32-34); Mean Corpuscular Volume 97 fl (84-94); Platelet Count 162 K/mm3 (140-440); Red Blood Count 3.88 M/mm3 (3.65-5.03); Red Cell Distribution Width 13.2 % (13.2-15.2)
[2020-07-07 06:55] LABS: Calcium 9.2 mg/dL (8.4-10.2)
[2020-07-07] MEDS: oxyCODONE /ACETAMINOPHEN 5-325MG TAB PO PRN ×3 (08:33→20:01)
--- NOTE | 2020-07-07 10:51 | Progress Note ---
Assessment and Plan Assessment and plan: 74 YO Male with CKD S/P Intermittent Dialysis, GERD, HTN, NE, OA, UC presents to ED for evaluation. Patient reports "I have been feeling weak". Patient states that he had experienced generalized weakness over the past 1 week with persistently worsening symptoms over the same timeframe. Patient notified his aerobics instructor who instructed him to seek further care at [facility]. Patient transported to [facility] via private vehicle for further care and evaluation of the aforementioned symptoms. The patient was seen and evaluated in the emergency department. All lab and imaging studies reviewed. The patient was found to have end-stage renal disease in need of dialysis. Nephrology team consulted in ED. Patient is pending dialysis access placement as per nephrology team recommendations. Patient denies fever, chills, chest pain, palpitation, productive cough, skin rash, recent ill contacts, or known exposure to COVID-19. Prior admission on 10/06/2017 reviewed. All medication listed at time of admission has been reconciled. Advanced care planning conducted in ED. [id number] renal disease Hyponatremia No dialysis access Acute cystitis Hypercalcemia Hypotension Otherwise hx of Hypertension Ulcerative Colitis Acute metabolic Acidosis Type 2 NSTEMI GERD Plan 06/07: Continue supportive care with gentle hydration, per aerobics instructor renal function showing slight improvement creatinine down to 7.1. Continue Percocets for pain control for possible neuropathic pain. Vascular input appreciated renal input no indication for immediate dialysis at this time. We will continue antibiotics for urine culture while awaiting culture results. Hyponatremia is improving and metabolic acidosis is also improving. Anticipate discharge in 24 hours Continue supportive care Obtain Vascular consult for access Continue abx and await, cultures Continue current management Cloud Systems Administrator consulted for possible coverage DVT/GI prophy History Interval history: Patient admitted with generalized weakness improving, complained of bilateral feet pain s secondary to his neuropathic issues. Unable to take any neuropathic pain medication.. Hospitalist Physical - Physical exam Narrative exam: General appearance: Present: mild distress - EENT Eyes: Present: PERRL ENT: hearing intact, clear oral mucosa - Neck Neck: Present: supple, normal ROM - Respiratory Respiratory effort: normal Respiratory: bilateral: CTA - Cardiovascular Heart Sounds: Present: S1 & S2. Absent: rub, click - Extremities Extremities: pulses symmetrical, No edema Peripheral Pulses: within normal limits - Abdominal General gastrointestinal: Present: Left-sided colostomy soft, non-tender, non- distended, normal bowel sounds Male genitourinary: Present: normal - Integumentary Integumentary: Present: Multiple lesions well-healed scars on the left upper extremity clear, warm, dry - Musculoskeletal Musculoskeletal: generalized weakness - Psychiatric Psychiatric: appropriate mood/affect, intact judgment & insight - Neurologic Neurologic: CNII-XII intact, moves all extremities - Constitutional Vitals: Temp Pulse Resp BP Pulse Ox 97.7 F 76 16 111/78 98 07/07/20 03:48 07/07/20 03:48 07/07/20 03:48 07/07/20 03:48 07/07/20 03:48 General appearance: Present: no acute distress HEART Score - HEART Score Troponin: Troponin T 0.048 ng/mL (0.00-0.029) H 07/04/20 18:46 Results - Labs CBC & Chem 7: 07/07/20 06:15 07/07/20 06:15 Labs: Laboratory Last Values WBC 7.3 K/mm3 (4.5-11.0) 07/07/20 06:15 RBC 3.88 M/mm3 (3.65-5.03) 07/07/20 06:15 Hgb 13.1 gm/dl (11.8-15.2) 07/07/20 06:15 Hct 37.4 % (35.5-45.6) 07/07/20 06:15 MCV 97 fl (84-94) H 07/07/20 06:15 MCH 34 pg (28-32) H 07/07/20 06:15 MCHC 35 % (32-34) H 07/07/20 06:15 RDW 13.2 % (13.2-15.2) 07/07/20 06:15 Plt Count 162 K/mm3 (140-440) 07/07/20 06:15 Lymph % (Auto) 11.3 % (13.4-35.0) L 07/04/20 18:46 [place] % (Auto) 9.2 % (0.0-7.3) H 07/04/20 18:46 Eos % (Auto) 0.3 % (0.0-4.3) 07/04/20 18:46 Baso % (Auto) 0.2 % (0.0-1.8) 07/04/20 18:46 Lymph # (Auto) 0.9 K/mm3 (1.2-5.4) L 07/04/20 18:46 [place] # (Auto) 0.7 K/mm3 (0.0-0.8) 07/04/20 18:46 Eos # (Auto) 0.0 K/mm3 (0.0-0.4) 07/04/20 18:46 Baso # (Auto) 0.0 K/mm3 (0.0-0.1) 07/04/20 18:46 Seg Neutrophils % 79.0 % (40.0-70.0) H 07/04/20 18:46 Seg Neutrophils # 6.3 K/mm3 (1.8-7.7) 07/04/20 18:46 VBG pH 7.283 (7.320-7.420) L 07/04/20 18:46 Sodium 134 mmol/L (137-145) L 07/07/20 06:15 Potassium 4.1 mmol/L (3.6-5.0) 07/07/20 06:15 Chloride 87.0 mmol/L (98-107) L 07/07/20 06:15 Carbon Dioxide 33 mmol/L (22-30) H D 07/07/20 06:15 Anion Gap 18 mmol/L 07/07/20 06:15 BUN 154 mg/dL (9-20) H 07/07/20 06:15 Creatinine 7.1 mg/dL (0.8-1.3) H 07/07/20 06:15 Estimated GFR 9 ml/min 07/07/20 06:15 BUN/Creatinine Ratio 22 % 07/07/20 06:15 Glucose 102 mg/dL (75-100) H 07/07/20 06:15 Calcium 9.2 mg/dL (8.4-10.2) 07/07/20 06:15 Magnesium 3.10 mg/dL (1.7-2.3) H 07/04/20 18:46 Total Bilirubin 0.60 mg/dL (0.1-1.2) 07/04/20 18:46 AST 23 units/L (5-40) 07/04/20 18:46 ALT 45 units/L (7-56) 07/04/20 18:46 Alkaline Phosphatase 558 units/L (35-129) H 07/04/20 18:46 Troponin T 0.048 ng/mL (0.00-0.029) H 07/04/20 18:46 NT-Pro-B Natriuret Pep 649.6 pg/mL (0-900) 07/04/20 18:46 Total Protein 9.2 g/dL (6.3-8.2) H 07/04/20 18:46 Albumin 4.7 g/dL (3.9-5) 07/04/20 18:46 Albumin/Globulin Ratio 1.0 % 07/04/20 18:46 Triglycerides 62 mg/dL (2-149) 07/04/20 18:46 Cholesterol 140 mg/dL (50-199) 07/04/20 18:46 LDL Cholesterol Direct 55 mg/dL (50-130) 07/04/20 18:46 HDL Cholesterol 95 mg/dL (40-59) H 07/04/20 18:46 Cholesterol/HDL Ratio 1.47 % 07/04/20 18:46 Urine Color Yellow (Yellow) 07/05/20 15:30 Urine Turbidity Cloudy (Clear) 07/05/20 15:30 Urine pH 5.0 (5.0-7.0) 07/05/20 15:30 Ur Specific [place] 1.012 (1.003-1.030) 07/05/20 15:30 Urine Protein 30 mg/dl mg/dL (Negative) 07/05/20 15:30 Urine Glucose (UA) Neg mg/dL (Negative) 07/05/20 15:30 Urine Ketones Neg mg/dL (Negative) 07/05/20 15:30 Urine Blood Mod (Negative) 07/05/20 15:30 Urine Nitrite Neg (Negative) 07/05/20 15:30 Urine Bilirubin Neg (Negative) 07/05/20 15:30 Urine Urobilinogen < 2.0 mg/dL (<2.0) 07/05/20 15:30 Ur Leukocyte Esterase Lg (Negative) 07/05/20 15:30 Urine WBC (Auto) > 182.0 /HPF (0.0-6.0) H 07/05/20 15:30 Urine RBC (Auto) 14.0 /HPF (0.0-6.0) 07/05/20 15:30 Urine Bacteria (Auto) 2+ /HPF (Negative) 07/05/20 15:30 Urine WBC Clumps 2+ /HPF 07/05/20 15:30 Urine Mucus Few /HPF 07/05/20 15:30 Urine Yeast (Budding) 3+ /HPF 07/05/20 15:30 Heath/IV: Voiding Method Urinal Active Medications - Current Medications Current Medications: Generic Name Dose Route Start Last Admin Trade Name Freq PRN Reason Stop Dose Admin Acetaminophen 650 mg 07/05/20 12:12 Acetaminophen 325 Mg Tab PO Q4H PRN Pain MILD(1-3)/Fever >100.5/ROSS Albuterol 2.5 mg 07/05/20 12:12 Albuterol 2.5 Mg/3 Ml Nebu IH Q4HRT PRN Shortness Of Breath Calcitriol 0.25 mcg 07/06/20 10:00 07/06/20 10:34 Calcitriol 0.25 Mcg Cap PO 0.25 mcg DAILY MIMI Administration Cholecalciferol 1,000 unit 07/06/20 10:00 07/06/20 10:35 Cholecalciferol (Vit D3) 1000 Unit (25 Mcg) Tab PO 1,000 unit DAILY MIMI Administration Famotidine 20 mg 07/06/20 10:00 07/06/20 10:34 Famotidine 20 Mg Tab PO 20 mg QDAY MIMI Administration Sodium Bicarbonate 150 meq/ 1,150 mls @ 125 mls/hr 07/05/20 15:30 07/06/20 22:30 Dextrose IV 07/08/20 00:41 125 mls/hr DIRECT MIMI Administration Multivitamins 1 each 07/06/20 10:00 07/06/20 10:35 Multivitamins ,Therapeutic Tab PO 1 each DAILY MIMI Administration Ondansetron HCl 4 mg 07/05/20 12:12 Ondansetron 4 Mg/2 Ml Inj IV Q8H PRN Nausea And Vomiting Oxycodone/Acetaminophen 1 tab 07/05/20 12:15 07/07/20 08:33 Oxycodone /Acetaminophen 5-325mg Tab PO 1 tab Q6H PRN Administration Pain , Severe (7-10) Sodium Bicarbonate 650 mg 07/05/20 22:00 07/06/20 22:22 Sodium Bicarbonate 650 Mg Tab PO 650 mg BID MIIM Administration Sodium Chloride 10 ml 07/05/20 22:00 07/06/20 22:22 Sodium Chloride 0.9% 10 Ml Flush Syringe IV 10 ml BID MIMI Administration Sodium Chloride 10 ml 07/05/20 12:12 Sodium Chloride 0.9% 10 Ml Flush Syringe IV PRN PRN LINE FLUSH Nutrition/Malnutrition Assess - Dietary Evaluation Nutrition/Malnutrition Findings: Nutrition Notes Start: 07/06/20 10:54 Freq: Status: Active Protocol: Document 07/06/20 10:54 AT (Rec: 07/06/20 11:11 AT [id number]) Co-Sign 07/06/20 10:54 MK Nutrition Notes Need for Assessment generated from: MD Order,resource teacher,MST Initial or Follow up Brief Note Current Diagnosis CKD (stage V CKD),Hypertension Other Pertinent Diagnosis Ileostomy, GERD, Osteoarthritis, Ulcerative Colitis, NSTEMI Current Diet NPO [place] Body Weight (kg) 0 Subjective/Other Information Consult for ONS and MST of 3. Per chart, pt consumed 100% of dinner last night. Pt reports consuming 100% of breakfast today. Pt is cognizant of K, Phos, and protein rich foods. Pt reports no weight loss and does not appear to be at nutritional risk at this time. Pt reports adhering to a renal diet for years. Pt denies N/V/D. 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 Pt declined ONS in favor of meals . Food preferences recorded. Pt reports a normal appetite and declined further diet education. Nutrition Intervention Revisit per MD consult or patient Sign Off request:
[2020-07-07] MEDS: SODIUM BICARBONATE 650 MG TAB PO SCH ×2 (11:12→21:26)
[2020-07-07] MEDS: FAMOTIDINE 20 MG TAB PO SCH (11:12)
[2020-07-07] MEDS: CHOLECALCIFEROL (VIT D3) 1000 UNIT (25 mcg) TAB PO SCH (11:12)
[2020-07-07] MEDS: CALCITRIOL 0.25 MCG CAP PO SCH (11:12)
[2020-07-07] MEDS: MULTIVITAMINS ,THERAPEUTIC TAB PO SCH (11:12)
[2020-07-07] MEDS: SODIUM BICARBONATE 150 MEQ in DEXTROSE 5% IN WATER 1,000 ML IV SCH (14:25)
--- NOTE | 2020-07-07 16:53 | Ultrasound Report ---
ULTRASOUND ABDOMEN, COMPLETE INDICATION / CLINICAL INFORMATION: abdominal pain, elevated alkphos. COMPARISON: CT abdomen/pelvis without contrast 10/06/2017 and renal ultrasound 07/05/2020. FINDINGS: PANCREAS: Not visualized due to overlying bowel gas. ABDOMINAL AORTA: No significant abnormality. IVC: No significant abnormality. LIVER: The liver is normal in size measuring 15.5 cm with diffusely echogenic appearance. Normal hepa topedal blood flow within the main portal vein. GALLBLADDER: Small amount of sludge is visualized within the gallbladder. No evidence of stones or wa ll thickening. BILE DUCTS: No significant abnormality. Common bile duct measures 4 mm. KIDNEYS: Right: The right kidney measures small at 7.1 cm. Increased cortical echogenicity. Left: Th e left kidney measures 9.0 cm. No significant abnormality. SPLEEN: The spleen measures 9.5 cm. No significant abnormality. FREE FLUID: None. ADDITIONAL FINDINGS: None. IMPRESSION: 1. Diffusely echogenic appearance of the liver, most commonly seen with hepatic steatosis. 2. Small amount of sludge is visualized within the gallbladder as above. 3. Atrophic right kidney consistent with chronic renal disease. Scribed by: Yoselin Springer RDMS, RVT Scribed: 07/07/2020 9:40 AM Signer Name: Rodriguez Payton MD Signed: 07/07/2020 4:48 PM Workstation Name: [id number]
--- NOTE | 2020-07-07 22:10 | Progress Note ---
Assessment and Plan Assessment Acute kidney injury on CKD, last known creatinine was 2.9 in December 2019. Ultrasound reviewed - no obstruction. Hypotension Hypercalcemia Acidosis Hyponatremia Elevated alkaline phosphatase Recommendations No immediate indication for dialysis Okay for oral diet Continue IV hydration Hold diuretics Keep MAP>65 Daily lab check Strict I/O Renally dose medications Avoid nephrotoxins Renal diet Elevated alkaline phosphatase - w/u as per primary Subjective Date of service: 07/07/20 Principal diagnosis: Acute kidney injury Interval history: Feels better. Dizziness resolved. Acceptable urine output. Objective - Exam Narrative Exam: General appearance: No acute distress EENT: Anicteric sclera, hearing intact, dry mucosa Neck: Supple Respiratory: Normal effort, CTA bilaterally Cardiovascular: RRR, no rub Extremities: No edema Abdominal: Soft, nontender, colostomy pouch noted Integumentary: Dry, intact Musculoskeletal: No joint swelling or erythema Psychiatric: Appropriate mood/affect, judgment intact Neurologic: No focal deficits, moves all extremities - Vital Signs Vital signs: Vital Signs - 12hr 07/07/20 07/07/20 14:05 21:18 Temperature 97.7 F Pulse Rate 83 Respiratory 18 16 Rate Blood Pressure 112/69 107/69 O2 Sat by Pulse 97 Oximetry - Lab 07/07/20 06:15 07/07/20 06:15 Most recent lab results Calcium 9.2 mg/dL (8.4-10.2) 07/07/20 06:15 Magnesium 3.10 mg/dL (1.7-2.3) H 07/04/20 18:46 Medications & Allergies - Medications Allergies/Adverse Reactions: Allergies gabapentin Allergy (Verified 07/04/20 18:09) Rash pregabalin [From Lyrica] Allergy (Verified 07/04/20 18:09) Rash soy Allergy (Verified 07/04/20 18:09) Unknown Iodinated Contrast Media [Iodinated Contrast Media - IV Dye] Adverse Reaction (Verified 07/04/20 18:09) Swelling Home Medications: Home Medications Medication Instructions Recorded Confirmed Last Taken Type Cholecalciferol (Vitamin D3) 1,000 unit PO DAILY 10/06/17 07/05/20 07/04/20 His tory [Vitamin D3] Multivitamin with Folic Acid [One 400 mcg PO DAILY 10/06/17 07/05/20 10/05/17 History Daily Multivitamin Tablet] Acetaminophen [Acetaminophen TAB] 650 mg PO Q4H PRN #15 tablet 10/08/17 07/05/20 Unknown Rx Sodium Bicarbonate 650 mg PO BID #60 tablet 10/08/17 07/05/20 07/04/20 Rx calcitrioL [Rocaltrol] 0.25 mcg PO DAILY #30 capsule 10/08/17 07/05/20 07/03/20 Rx Ferrous Sulfate [Ferrous Sulfate 324 mg PO DAILY 07/05/20 07/05/20 07/04/20 History 324 MG] Active Medications: Generic Name Dose Route Start Last Admin Trade Name Freq PRN Reason Stop Dose Admin Acetaminophen 650 mg 07/05/20 12:12 Acetaminophen 325 Mg Tab PO Q4H PRN Pain MILD(1-3)/Fever >100.5/ROSS Albuterol 2.5 mg 07/05/20 12:12 Albuterol 2.5 Mg/3 Ml Nebu IH Q4HRT PRN Shortness Of Breath Calcitriol 0.25 mcg 07/06/20 10:00 07/07/20 11:12 Calcitriol 0.25 Mcg Cap PO Not Given DAILY [facility] Cholecalciferol 1,000 unit 07/06/20 10:00 07/07/20 11:12 Cholecalciferol (Vit D3) 1000 Unit (25 Mcg) Tab PO Not Given DAILY MIMI Famotidine 20 mg 07/06/20 10:00 07/07/20 11:12 Famotidine 20 Mg Tab PO Not Given QDAY MIMI Sodium Bicarbonate 150 meq/ 1,150 mls @ 125 mls/hr 07/05/20 15:30 07/07/20 14:25 Dextrose IV 07/08/20 00:41 125 mls/hr DIRECT MIMI Administration Multivitamins 1 each 07/06/20 10:00 07/07/20 11:12 Multivitamins ,Therapeutic Tab PO Not Given DAILY MIMI Ondansetron HCl 4 mg 07/05/20 12:12 Ondansetron 4 Mg/2 Ml Inj IV Q8H PRN Nausea And Vomiting Oxycodone/Acetaminophen 1 tab 07/05/20 12:15 07/07/20 20:01 Oxycodone /Acetaminophen 5-325mg Tab PO 1 tab Q6H PRN Administration Pain , Severe (7-10) Sodium Bicarbonate 650 mg 07/05/20 22:00 07/07/20 21:26 Sodium Bicarbonate 650 Mg Tab PO 650 mg BID MIMI Administration Sodium Chloride 10 ml 07/05/20 22:00 07/07/20 21:25 Sodium Chloride 0.9% 10 Ml Flush Syringe IV 10 ml BID MIMI Administration Sodium Chloride 10 ml 07/05/20 12:12 Sodium Chloride 0.9% 10 Ml Flush Syringe IV PRN PRN LINE FLUSH
[2020-07-08 06:24] LABS: Hematocrit 37.5 % (35.5-45.6); Hemoglobin 13.1 gm/dl (11.8-15.2); Mean Corpuscular HGB Conc 35 % (32-34); Mean Corpuscular Volume 98 fl (84-94); Platelet Count 151 K/mm3 (140-440); Red Blood Count 3.84 M/mm3 (3.65-5.03); Red Cell Distribution Width 13.2 % (13.2-15.2)
[2020-07-08 06:39] LABS: Calcium 9.4 mg/dL (8.4-10.2)
[2020-07-08] MEDS: oxyCODONE /ACETAMINOPHEN 5-325MG TAB PO PRN ×2 (07:57→23:26)
--- NOTE | 2020-07-08 08:38 | Progress Note ---
Assessment and Plan Assessment and plan: 74 YO Male with CKD S/P Intermittent Dialysis, GERD, HTN, CO, OA, UC presents to ED for evaluation. Patient reports "I have been feeling weak". Patient states that he had experienced generalized weakness over the past 1 week with persistently worsening symptoms over the same timeframe. Patient notified his curriculum counselor who instructed him to seek further care at [facility]. Patient transported to [facility] via private vehicle for further care and evaluation of the aforementioned symptoms. The patient was seen and evaluated in the emergency department. All lab and imaging studies reviewed. The patient was found to have end-stage renal disease in need of dialysis. Nephrology team consulted in ED. Patient is pending dialysis access placement as per nephrology team recommendations. Patient denies fever, chills, chest pain, palpitation, productive cough, skin rash, recent ill contacts, or known exposure to COVID-19. Prior admission on 10/06/2017 reviewed. All medication listed at time of admission has been reconciled. Advanced care planning conducted in ED. [id number] renal disease Hyponatremia No dialysis access Acute cystitis Hypercalcemia Hypotension Otherwise hx of Hypertension Ulcerative Colitis Acute metabolic Acidosis Type 2 NSTEMI GERD Plan 06/07: Continue supportive care with gentle hydration, per curriculum counselor renal function showing slight improvement creatinine down to 7.1. Continue Percocets for pain control for possible neuropathic pain. Vascular input appreciated renal input no indication for immediate dialysis at this time. We will continue antibiotics for urine culture while awaiting culture results. Hyponatremia is improving and metabolic acidosis is also improving. Anticipate discharge in 24 hours 07/08: Creatinine continues to improve. Will anticipate discharge of diuretics which can be reevaluated for reinitiation with curriculum counselor outpatient. If okay with curriculum counselor patient can be discharged today. If discharged today will need home health with PT OT also at bedside commode. This has been ordered Continue supportive care Obtain Vascular consult for access Continue abx and await, cultures Continue current management Reservations Specialist consulted for possible coverage DVT/GI prophy History Interval history: Patient admitted with generalized weakness improving, complained of bilateral feet pain s secondary to his neuropathic issues. Unable to take any neuropathic pain medication. Continues to complain of bilateral lower extremity pain which she says has been ongoing since his prior DVTs and IVC filter. Hospitalist Physical - Physical exam Narrative exam: General appearance: Present: mild distress - EENT Eyes: Present: PERRL ENT: hearing intact, clear oral mucosa - Neck Neck: Present: supple, normal ROM - Respiratory Respiratory effort: normal Respiratory: bilateral: CTA - Cardiovascular Heart Sounds: Present: S1 & S2. Absent: rub, click - Extremities Extremities: pulses symmetrical, No edema Peripheral Pulses: within normal limits - Abdominal General gastrointestinal: Present: Left-sided colostomy soft, non-tender, non- distended, normal bowel sounds Male genitourinary: Present: normal - Integumentary Integumentary: Present: Multiple lesions well-healed scars on the left upper extremity clear, warm, dry - Musculoskeletal Musculoskeletal: generalized weakness - Psychiatric Psychiatric: appropriate mood/affect, intact judgment & insight - Neurologic Neurologic: CNII-XII intact, moves all extremities - Constitutional Vitals: Temp Pulse Resp BP Pulse Ox 98.9 F 85 18 129/78 97 07/08/20 04:13 07/08/20 04:13 07/08/20 07:57 07/08/20 04:13 07/08/20 04:13 General appearance: Present: no acute distress HEART Score - HEART Score Troponin: Troponin T 0.048 ng/mL (0.00-0.029) H 07/04/20 18:46 Results - Labs CBC & Chem 7: 07/08/20 05:19 07/08/20 05:19 Labs: Laboratory Last Values WBC 9.5 K/mm3 (4.5-11.0) 07/08/20 05:19 RBC 3.84 M/mm3 (3.65-5.03) 07/08/20 05:19 Hgb 13.1 gm/dl (11.8-15.2) 07/08/20 05:19 Hct 37.5 % (35.5-45.6) 07/08/20 05:19 MCV 98 fl (84-94) H 07/08/20 05:19 MCH 34 pg (28-32) H 07/08/20 05:19 MCHC 35 % (32-34) H 07/08/20 05:19 RDW 13.2 % (13.2-15.2) 07/08/20 05:19 Plt Count 151 K/mm3 (140-440) 07/08/20 05:19 Lymph % (Auto) 11.3 % (13.4-35.0) L 07/04/20 18:46 Ness % (Auto) 9.2 % (0.0-7.3) H 07/04/20 18:46 Eos % (Auto) 0.3 % (0.0-4.3) 07/04/20 18:46 Baso % (Auto) 0.2 % (0.0-1.8) 07/04/20 18:46 Lymph # (Auto) 0.9 K/mm3 (1.2-5.4) L 07/04/20 18:46 Ness # (Auto) 0.7 K/mm3 (0.0-0.8) 07/04/20 18:46 Eos # (Auto) 0.0 K/mm3 (0.0-0.4) 07/04/20 18:46 Baso # (Auto) 0.0 K/mm3 (0.0-0.1) 07/04/20 18:46 Seg Neutrophils % 79.0 % (40.0-70.0) H 07/04/20 18:46 Seg Neutrophils # 6.3 K/mm3 (1.8-7.7) 07/04/20 18:46 VBG pH 7.283 (7.320-7.420) L 07/04/20 18:46 Sodium 133 mmol/L (137-145) L 07/08/20 05:19 Potassium 4.3 mmol/L (3.6-5.0) 07/08/20 05:19 Chloride 85.1 mmol/L (98-107) L 07/08/20 05:19 Carbon Dioxide 35 mmol/L (22-30) H 07/08/20 05:19 Anion Gap 17 mmol/L 07/08/20 05:19 BUN 137 mg/dL (9-20) H 07/08/20 05:19 Creatinine 5.9 mg/dL (0.8-1.3) H 07/08/20 05:19 Estimated GFR 11 ml/min 07/08/20 05:19 BUN/Creatinine Ratio 23 % 07/08/20 05:19 Glucose 105 mg/dL (75-100) H 07/08/20 05:19 Calcium 9.4 mg/dL (8.4-10.2) 07/08/20 05:19 Magnesium 3.10 mg/dL (1.7-2.3) H 07/04/20 18:46 Total Bilirubin 0.60 mg/dL (0.1-1.2) 07/04/20 18:46 AST 23 units/L (5-40) 07/04/20 18:46 ALT 45 units/L (7-56) 07/04/20 18:46 Alkaline Phosphatase 558 units/L (35-129) H 07/04/20 18:46 Troponin T 0.048 ng/mL (0.00-0.029) H 07/04/20 18:46 NT-Pro-B Natriuret Pep 649.6 pg/mL (0-900) 07/04/20 18:46 Total Protein 9.2 g/dL (6.3-8.2) H 07/04/20 18:46 Albumin 4.7 g/dL (3.9-5) 07/04/20 18:46 Albumin/Globulin Ratio 1.0 % 07/04/20 18:46 Triglycerides 62 mg/dL (2-149) 07/04/20 18:46 Cholesterol 140 mg/dL (50-199) 07/04/20 18:46 LDL Cholesterol Direct 55 mg/dL (50-130) 07/04/20 18:46 HDL Cholesterol 95 mg/dL (40-59) H 07/04/20 18:46 Cholesterol/HDL Ratio 1.47 % 07/04/20 18:46 Urine Color Yellow (Yellow) 07/05/20 15:30 Urine Turbidity Cloudy (Clear) 07/05/20 15:30 Urine pH 5.0 (5.0-7.0) 07/05/20 15:30 Ur Specific [place] 1.012 (1.003-1.030) 07/05/20 15:30 Urine Protein 30 mg/dl mg/dL (Negative) 07/05/20 15:30 Urine Glucose (UA) Neg mg/dL (Negative) 07/05/20 15:30 Urine Ketones Neg mg/dL (Negative) 07/05/20 15:30 Urine Blood Mod (Negative) 07/05/20 15:30 Urine Nitrite Neg (Negative) 07/05/20 15:30 Urine Bilirubin Neg (Negative) 07/05/20 15:30 Urine Urobilinogen < 2.0 mg/dL (<2.0) 07/05/20 15:30 Ur Leukocyte Esterase Lg (Negative) 07/05/20 15:30 Urine WBC (Auto) > 182.0 /HPF (0.0-6.0) H 07/05/20 15:30 Urine RBC (Auto) 14.0 /HPF (0.0-6.0) 07/05/20 15:30 Urine Bacteria (Auto) 2+ /HPF (Negative) 07/05/20 15:30 Urine WBC Clumps 2+ /HPF 07/05/20 15:30 Urine Mucus Few /HPF 07/05/20 15:30 Urine Yeast (Budding) 3+ /HPF 07/05/20 15:30 Coronavirus (PCR) Negative (Negative) 07/06/20 Unknown Heath/IV: Voiding Method Urinal Active Medications - Current Medications Current Medications: Generic Name Dose Route Start Last Admin Trade Name Freq PRN Reason Stop Dose Admin Acetaminophen 650 mg 07/05/20 12:12 Acetaminophen 325 Mg Tab PO Q4H PRN Pain MILD(1-3)/Fever >100.5/ROSS Albuterol 2.5 mg 07/05/20 12:12 Albuterol 2.5 Mg/3 Ml Nebu IH Q4HRT PRN Shortness Of Breath Calcitriol 0.25 mcg 07/06/20 10:00 07/07/20 11:12 Calcitriol 0.25 Mcg Cap PO Not Given DAILY [facility] Cholecalciferol 1,000 unit 07/06/20 10:00 07/07/20 11:12 Cholecalciferol (Vit D3) 1000 Unit (25 Mcg) Tab PO Not Given DAILY MIMI Famotidine 20 mg 07/06/20 10:00 07/07/20 11:12 Famotidine 20 Mg Tab PO Not Given QDAY [facility] Multivitamins 1 each 07/06/20 10:00 07/07/20 11:12 Multivitamins ,Therapeutic Tab PO Not Given DAILY MIMI Ondansetron HCl 4 mg 07/05/20 12:12 Ondansetron 4 Mg/2 Ml Inj IV Q8H PRN Nausea And Vomiting Oxycodone/Acetaminophen 1 tab 07/05/20 12:15 07/08/20 07:57 Oxycodone /Acetaminophen 5-325mg Tab PO 1 tab Q6H PRN Administration Pain , Severe (7-10) Sodium Bicarbonate 650 mg 07/09/20 10:00 Sodium Bicarbonate 650 Mg Tab PO BID MIMI Sodium Chloride 10 ml 07/05/20 22:00 07/07/20 21:25 Sodium Chloride 0.9% 10 Ml Flush Syringe IV 10 ml BID MIMI Administration Sodium Chloride 10 ml 07/05/20 12:12 Sodium Chloride 0.9% 10 Ml Flush Syringe IV PRN PRN LINE FLUSH Nutrition/Malnutrition Assess - Dietary Evaluation Nutrition/Malnutrition Findings: Nutrition Notes Start: 07/06/20 10:54 Freq: Status: Active Protocol: Document 07/06/20 10:54 AT (Rec: 07/06/20 11:11 AT [id number]) Co-Sign 07/06/20 10:54 MK Nutrition Notes Need for Assessment generated from: MD Order,under sheriff,MST Initial or Follow up Brief Note Current Diagnosis CKD (stage V CKD),Hypertension Other Pertinent Diagnosis Ileostomy, GERD, Osteoarthritis, Ulcerative Colitis, NSTEMI Current Diet NPO [place] Body Weight (kg) 0 Subjective/Other Information Consult for ONS and MST of 3. Per chart, pt consumed 100% of dinner last night. Pt reports consuming 100% of breakfast today. Pt is cognizant of K, Phos, and protein rich foods. Pt reports no weight loss and does not appear to be at nutritional risk at this time. Pt reports adhering to a renal diet for years. Pt denies N/V/D. 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 Pt declined ONS in favor of meals . Food preferences recorded. Pt reports a normal appetite and declined further diet education. Nutrition Intervention Revisit per MD consult or patient Sign Off request:
[2020-07-08] MEDS: CHOLECALCIFEROL (VIT D3) 1000 UNIT (25 mcg) TAB PO SCH (09:56)
[2020-07-08] MEDS: FAMOTIDINE 20 MG TAB PO SCH (09:56)
[2020-07-08] MEDS: CALCITRIOL 0.25 MCG CAP PO SCH (09:56)
[2020-07-08] MEDS: MULTIVITAMINS ,THERAPEUTIC TAB PO SCH (09:56)
[2020-07-08] MEDS: LACTATED RINGERS 1,000 ML IV SCH ×2 (10:02→20:29)
[2020-07-08] MEDS: MORPHINE 2 MG/1 ML INJ IV PRN ×2 (13:46→18:44)
--- NOTE | 2020-07-08 18:55 | Progress Note ---
Assessment and Plan Assessment Acute kidney injury on CKD, last known creatinine was 2.9 in December 2019. Ultrasound reviewed - no obstruction. Hypotension Hypercalcemia Acidosis Hyponatremia Elevated alkaline phosphatase Recommendations No immediate indication for dialysis Okay for oral diet Continue IV hydration Hold diuretics Keep MAP>65 Daily lab check Strict I/O Renally dose medications Avoid nephrotoxins Renal diet Elevated alkaline phosphatase - w/u as per primary Not stable for d/c at this time. Will need continued inpatient monitoring as lab s although improving still show significant derangement. Subjective Date of service: 07/08/20 Principal diagnosis: Acute kidney injury Interval history: Dizziness resolved. Tolerating PO diet. Objective - Exam Narrative Exam: General appearance: No acute distress EENT: Anicteric sclera, hearing intact, dry mucosa Neck: Supple Respiratory: Normal effort, CTA bilaterally Cardiovascular: RRR, no rub Extremities: No edema Abdominal: Soft, nontender, colostomy pouch noted Integumentary: Dry, intact Musculoskeletal: No joint swelling or erythema Psychiatric: Appropriate mood/affect, judgment intact Neurologic: No focal deficits, moves all extremities - Vital Signs Vital signs: Vital Signs - 12hr 07/08/20 07/08/20 07/08/20 07:57 09:54 13:32 Temperature 98.4 F Pulse Rate 89 Respiratory 18 20 18 Rate Blood Pressure 89/60 Blood Pressure [Right] O2 Sat by Pulse 95 100 Oximetry 07/08/20 07/08/20 07/08/20 13:44 13:46 18:44 Temperature Pulse Rate 83 Respiratory 20 20 Rate Blood Pressure Blood Pressure 119/74 [Right] O2 Sat by Pulse Oximetry - Lab 07/08/20 05:19 07/08/20 05:19 Most recent lab results Calcium 9.4 mg/dL (8.4-10.2) 07/08/20 05:19 Magnesium 3.10 mg/dL (1.7-2.3) H 07/04/20 18:46 Medications & Allergies - Medications Allergies/Adverse Reactions: Allergies gabapentin Allergy (Verified 07/04/20 18:09) Rash pregabalin [From Lyrica] Allergy (Verified 07/04/20 18:09) Rash soy Allergy (Verified 07/04/20 18:09) Unknown Iodinated Contrast Media [Iodinated Contrast Media - IV Dye] Adverse Reaction (Verified 07/04/20 18:09) Swelling Home Medications: Home Medications Medication Instructions Recorded Confirmed Last Taken Type Cholecalciferol (Vitamin D3) 1,000 unit PO DAILY 10/06/17 07/05/20 07/04/20 History [Vitamin D3] Multivitamin with Folic Acid [One 400 mcg PO DAILY 10/06/17 07/05/20 10/05/17 History Daily Multivitamin Tablet] Acetaminophen [Acetaminophen TAB] 650 mg PO Q4H PRN #15 tablet 10/08/17 07/05/20 Unknown Rx Sodium Bicarbonate 650 mg PO BID #60 tablet 10/08/17 07/05/20 07/04/20 Rx calcitrioL [Rocaltrol] 0.25 mcg PO DAILY #30 capsule 10/08/17 07/05/20 07/03/20 Rx Ferrous Sulfate [Ferrous Sulfate 324 mg PO DAILY 07/05/20 07/05/20 07/04/20 History 324 MG] oxyCODONE /ACETAMINOPHEN [Percocet 1 tab PO Q6H PRN #10 tablet 07/08/20 Unknown Rx 5/325 mg] raNITIdine HCl [Zantac] 150 mg PO DAILY #30 tablet 07/08/20 Unknown Rx Active Medications: Generic Name Dose Route Start Last Admin Trade Name Freq PRN Reason Stop Dose Admin Acetaminophen 650 mg 07/05/20 12:12 Acetaminophen 325 Mg Tab PO Q4H PRN Pain MILD(1-3)/Fever >100.5/ROSS Albuterol 2.5 mg 07/05/20 12:12 Albuterol 2.5 Mg/3 Ml Nebu IH Q4HRT PRN Shortness Of Breath Calcitriol 0.25 mcg 07/06/20 10:00 07/08/20 09:56 Calcitriol 0.25 Mcg Cap PO 0.25 mcg DAILY MIMI Administration Cholecalciferol 1,000 unit 07/06/20 10:00 07/08/20 09:56 Cholecalciferol (Vit D3) 1000 Unit (25 Mcg) Tab PO 1,000 unit DAILY MIMI Administration Famotidine 20 mg 07/06/20 10:00 07/08/20 09:56 Famotidine 20 Mg Tab PO 20 mg QDAY MIMI Administration Lactated Ringer's 1,000 mls @ 100 mls/hr 07/08/20 09:00 07/08/20 10:02 Lactated Ringers IV 100 mls/hr DIRECT MIMI Administration Morphine Sulfate 2 mg 07/08/20 09:50 07/08/20 18:44 Morphine 2 Mg/1 Ml Inj IV 2 mg Q4H PRN Administration Pain, Moderate (4-6) Multivitamins 1 each 07/06/20 10:00 07/08/20 09:56 Multivitamins ,Therapeutic Tab PO 1 each DAILY MIMI Administration Ondansetron HCl 4 mg 07/05/20 12:12 Ondansetron 4 Mg/2 Ml Inj IV Q8H PRN Nausea And Vomiting Oxycodone/Acetaminophen 1 tab 07/05/20 12:15 07/08/20 07:57 Oxycodone /Acetaminophen 5-325mg Tab PO 1 tab Q6H PRN Administration Pain , Severe (7-10) Sodium Bicarbonate 650 mg 07/09/20 10:00 Sodium Bicarbonate 650 Mg Tab PO BID MIMI Sodium Chloride 10 ml 07/05/20 22:00 07/08/20 09:57 Sodium Chloride 0.9% 10 Ml Flush Syringe IV 10 ml BID MIMI Administration Sodium Chloride 10 ml 07/05/20 12:12 Sodium Chloride 0.9% 10 Ml Flush Syringe IV PRN PRN LINE FLUSH
[2020-07-09] MEDS: LACTATED RINGERS 1,000 ML IV SCH ×2 (06:00→17:53)
[2020-07-09] MEDS: oxyCODONE /ACETAMINOPHEN 5-325MG TAB PO PRN ×2 (06:00→20:53)
[2020-07-09 08:53] LABS: Calcium 9.4 mg/dL (8.4-10.2)
--- NOTE | 2020-07-09 09:40 | Progress Note ---
Assessment and Plan Assessment and plan: 74 YO Male with CKD S/P Intermittent Dialysis, GERD, HTN, RI, OA, UC presents to ED for evaluation. Patient reports "I have been feeling weak". Patient states that he had experienced generalized weakness over the past 1 week with persistently worsening symptoms over the same timeframe. Patient notified his bridal consultant who instructed him to seek further care at [facility]. Patient transported to [facility] via private vehicle for further care and evaluation of the aforementioned symptoms. The patient was seen and evaluated in the emergency department. All lab and imaging studies reviewed. The patient was found to have end-stage renal disease in need of dialysis. Nephrology team consulted in ED. Patient is pending dialysis access placement as per nephrology team recommendations. Patient denies fever, chills, chest pain, palpitation, productive cough, skin rash, recent ill contacts, or known exposure to COVID-19. Prior admission on 10/06/2017 reviewed. All medication listed at time of admission has been reconciled. Advanced care planning conducted in ED. [id number] renal disease Hyponatremia No dialysis access Acute cystitis Hypercalcemia Hypotension Otherwise hx of Hypertension Ulcerative Colitis Acute metabolic Acidosis Type 2 NSTEMI GERD Plan 06/07: Continue supportive care with gentle hydration, per bridal consultant renal function showing slight improvement creatinine down to 7.1. Continue Percocets for pain control for possible neuropathic pain. Vascular input appreciated renal input no indication for immediate dialysis at this time. We will continue antibiotics for urine culture while awaiting culture results. Hyponatremia is improving and metabolic acidosis is also improving. Anticipate discharge in 24 hours 07/08: Creatinine continues to improve. Will anticipate discharge of diuretics which can be reevaluated for reinitiation with bridal consultant outpatient. If okay with bridal consultant patient can be discharged today. If discharged today will need home health with PT OT also at bedside commode. This has been ordered 07/09: Discontinue morphine secondary to nausea with vomiting. PT to obtain brace for the patient until he is able to retrieve his. Creatinine only came down to 5.3 will continue to monitor as it has not yet at his baseline. He continues to report severe pain in the lower extremity refused to ambulate with PT. We will recheck for DVT as patient has a history of prior DVT and has an IVC filter. No clear evidence of physical sign of thrombophlebitis. Continue p ain control. Continue supportive care Obtain Vascular consult for access Continue abx and await, cultures Continue current management Photography Manager consulted for possible coverage DVT/GI prophy History Interval history: Patient admitted with generalized weakness improving, not tolerating Morphin, reported nausea and vomiting yesterday, tells me today that he left his knee brace in the car. Hospitalist Physical - Physical exam Narrative exam: General appearance: Present: No distress. - EENT Eyes: Present: PERRL ENT: hearing intact, clear oral mucosa - Neck Neck: Present: supple, normal ROM - Respiratory Respiratory effort: normal Respiratory: bilateral: CTA - Cardiovascular Heart Sounds: Present: S1 & S2. Absent: rub, click - Extremities Extremities: pulses symmetrical, No edema Peripheral Pulses: within normal limits - Abdominal General gastrointestinal: Present: Left-sided colostomy soft, non-tender, non- distended, normal bowel sounds Male genitourinary: Present: normal - Integumentary Integumentary: Present: Multiple lesions well-healed scars on the left upper extremity clear, warm, dry - Musculoskeletal Musculoskeletal: generalized weakness - Psychiatric Psychiatric: appropriate mood/affect, intact judgment & insight - Neurologic Neurologic: CNII-XII intact, moves all extremities - Constitutional Vitals: Temp Pulse Resp BP Pulse Ox 98.0 F 92 H 18 130/79 95 07/09/20 04:34 07/09/20 07:00 07/09/20 04:34 07/09/20 04:34 07/09/20 04:34 General appearance: Present: no acute distress HEART Score - HEART Score Troponin: Troponin T 0.048 ng/mL (0.00-0.029) H 07/04/20 18:46 Results - Labs CBC & Chem 7: 07/08/20 05:19 07/09/20 07:47 Labs: Laboratory Last Values WBC 9.5 K/mm3 (4.5-11.0) 07/08/20 05:19 RBC 3.84 M/mm3 (3.65-5.03) 07/08/20 05:19 Hgb 13.1 gm/dl (11.8-15.2) 07/08/20 05:19 Hct 37.5 % (35.5-45.6) 07/08/20 05:19 MCV 98 fl (84-94) H 07/08/20 05:19 MCH 34 pg (28-32) H 07/08/20 05:19 MCHC 35 % (32-34) H 07/08/20 05:19 RDW 13.2 % (13.2-15.2) 07/08/20 05:19 Plt Count 151 K/mm3 (140-440) 07/08/20 05:19 Lymph % (Auto) 11.3 % (13.4-35.0) L 07/04/20 18:46 [place] % (Auto) 9.2 % (0.0-7.3) H 07/04/20 18:46 Eos % (Auto) 0.3 % (0.0-4.3) 07/04/20 18:46 Baso % (Auto) 0.2 % (0.0-1.8) 07/04/20 18:46 Lymph # (Auto) 0.9 K/mm3 (1.2-5.4) L 07/04/20 18:46 [place] # (Auto) 0.7 K/mm3 (0.0-0.8) 07/04/20 18:46 Eos # (Auto) 0.0 K/mm3 (0.0-0.4) 07/04/20 18:46 Baso # (Auto) 0.0 K/mm3 (0.0-0.1) 07/04/20 18:46 Seg Neutrophils % 79.0 % (40.0-70.0) H 07/04/20 18:46 Seg Neutrophils # 6.3 K/mm3 (1.8-7.7) 07/04/20 18:46 VBG pH 7.283 (7.320-7.420) L 07/04/20 18:46 Sodium 137 mmol/L (137-145) 07/09/20 07:47 Potassium 4.0 mmol/L (3.6-5.0) 07/09/20 07:47 Chloride 91.1 mmol/L (98-107) L 07/09/20 07:47 Carbon Dioxide 32 mmol/L (22-30) H 07/09/20 07:47 Anion Gap 18 mmol/L 07/09/20 07:47 BUN 107 mg/dL (9-20) H 07/09/20 07:47 Creatinine 5.3 mg/dL (0.8-1.3) H 07/09/20 07:47 Estimated GFR 13 ml/min 07/09/20 07:47 BUN/Creatinine Ratio 20 % 07/09/20 07:47 Glucose 96 mg/dL (75-100) 07/09/20 07:47 Calcium 9.4 mg/dL (8.4-10.2) 07/09/20 07:47 Magnesium 3.10 mg/dL (1.7-2.3) H 07/04/20 18:46 Total Bilirubin 0.60 mg/dL (0.1-1.2) 07/04/20 18:46 AST 23 units/L (5-40) 07/04/20 18:46 ALT 45 units/L (7-56) 07/04/20 18:46 Alkaline Phosphatase 558 units/L (35-129) H 07/04/20 18:46 Troponin T 0.048 ng/mL (0.00-0.029) H 07/04/20 18:46 NT-Pro-B Natriuret Pep 649.6 pg/mL (0-900) 07/04/20 18:46 Total Protein 9.2 g/dL (6.3-8.2) H 07/04/20 18:46 Albumin 4.7 g/dL (3.9-5) 07/04/20 18:46 Albumin/Globulin Ratio 1.0 % 07/04/20 18:46 Triglycerides 62 mg/dL (2-149) 07/04/20 18:46 Cholesterol 140 mg/dL (50-199) 07/04/20 18:46 LDL Cholesterol Direct 55 mg/dL (50-130) 07/04/20 18:46 HDL Cholesterol 95 mg/dL (40-59) H 07/04/20 18:46 Cholesterol/HDL Ratio 1.47 % 07/04/20 18:46 Urine Color Yellow (Yellow) 07/05/20 15:30 Urine Turbidity Cloudy (Clear) 07/05/20 15:30 Urine pH 5.0 (5.0-7.0) 07/05/20 15:30 Ur Specific [place] 1.012 (1.003-1.030) 07/05/20 15:30 Urine Protein 30 mg/dl mg/dL (Negative) 07/05/20 15:30 Urine Glucose (UA) Neg mg/dL (Negative) 07/05/20 15:30 Urine Ketones Neg mg/dL (Negative) 07/05/20 15:30 Urine Blood Mod (Negative) 07/05/20 15:30 Urine Nitrite Neg (Negative) 07/05/20 15:30 Urine Bilirubin Neg (Negative) 07/05/20 15:30 Urine Urobilinogen < 2.0 mg/dL (<2.0) 07/05/20 15:30 Ur Leukocyte Esterase Lg (Negative) 07/05/20 15:30 Urine WBC (Auto) > 182.0 /HPF (0.0-6.0) H 07/05/20 15:30 Urine RBC (Auto) 14.0 /HPF (0.0-6.0) 07/05/20 15:30 Urine Bacteria (Auto) 2+ /HPF (Negative) 07/05/20 15:30 Urine WBC Clumps 2+ /HPF 07/05/20 15:30 Urine Mucus Few /HPF 07/05/20 15:30 Urine Yeast (Budding) 3+ /HPF 07/05/20 15:30 Coronavirus (PCR) Negative (Negative) 07/06/20 Unknown Heath/IV: Voiding Method Urinal Active Medications - Current Medications Current Medications: Generic Name Dose Route Start Last Admin Trade Name Freq PRN Reason Stop Dose Admin Acetaminophen 650 mg 07/05/20 12:12 Acetaminophen 325 Mg Tab PO Q4H PRN Pain MILD(1-3)/Fever >100.5/ROSS Albuterol 2.5 mg 07/05/20 12:12 Albuterol 2.5 Mg/3 Ml Nebu IH Q4HRT PRN Shortness Of Breath Calcitriol 0.25 mcg 07/06/20 10:00 07/08/20 09:56 Calcitriol 0.25 Mcg Cap PO 0.25 mcg DAILY MIMI Administration Cholecalciferol 1,000 unit 07/06/20 10:00 07/08/20 09:56 Cholecalciferol (Vit D3) 1000 Unit (25 Mcg) Tab PO 1,000 unit DAILY MIMI Administration Famotidine 20 mg 07/06/20 10:00 07/08/20 09:56 Famotidine 20 Mg Tab PO 20 mg QDAY MIMI Administration Lactated Ringer's 1,000 mls @ 100 mls/hr 07/08/20 09:00 07/09/20 06:00 Lactated Ringers IV 100 mls/hr DIRECT MIMI Administration Morphine Sulfate 2 mg 07/08/20 09:50 07/08/20 18:44 Morphine 2 Mg/1 Ml Inj IV 2 mg Q4H PRN Administration Pain, Moderate (4-6) Multivitamins 1 each 07/06/20 10:00 07/08/20 09:56 Multivitamins ,Therapeutic Tab PO 1 each DAILY MIMI Administration Ondansetron HCl 4 mg 07/05/20 12:12 Ondansetron 4 Mg/2 Ml Inj IV Q8H PRN Nausea And Vomiting Oxycodone/Acetaminophen 1 tab 07/05/20 12:15 07/09/20 06:00 Oxycodone /Acetaminophen 5-325mg Tab PO 1 tab Q6H PRN Administration Pain , Severe (7-10) Sodium Bicarbonate 650 mg 07/09/20 10:00 Sodium Bicarbonate 650 Mg Tab PO BID MIMI Sodium Chloride 10 ml 07/05/20 22:00 07/08/20 21:00 Sodium Chloride 0.9% 10 Ml Flush Syringe IV 10 ml BID MIMI Administration Sodium Chloride 10 ml 07/05/20 12:12 Sodium Chloride 0.9% 10 Ml Flush Syringe IV PRN PRN LINE FLUSH Nutrition/Malnutrition Assess - Dietary Evaluation Nutrition/Malnutrition Findings: Nutrition Notes Start: 07/06/20 10:54 Freq: Status: Active Protocol: Document 07/06/20 10:54 AT (Rec: 07/06/20 11:11 AT [id number]) Co-Sign 07/06/20 10:54 Nutrition Notes Need for Assessment generated from: 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 Per chart, pt consumed 100% of dinner last night. Pt reports consuming 100% of breakfast today. Pt is cognizant of K, Phos, and protein rich foods. Pt reports no weight loss and does not appear to be at nutritional risk at this time. Pt reports adhering to a renal diet for years. Pt denies N/V/D. 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 Pt declined ONS in favor of meals . Food preferences recorded. Pt reports a normal appetite and declined further diet education. Nutrition Intervention Revisit per MD consult or patient Sign Off request:
[2020-07-09] MEDS: CHOLECALCIFEROL (VIT D3) 1000 UNIT (25 mcg) TAB PO SCH (09:52)
[2020-07-09] MEDS: CALCITRIOL 0.25 MCG CAP PO SCH (09:52)
[2020-07-09] MEDS: MULTIVITAMINS ,THERAPEUTIC TAB PO SCH (09:52)
[2020-07-09] MEDS: FAMOTIDINE 20 MG TAB PO SCH (09:52)
[2020-07-09] MEDS ORDERED: SODIUM BICARBONATE 650 MG TAB PO SCH (10:00)
--- NOTE | 2020-07-09 12:22 | Vascular Lab Report ---
DUPLEX DOPPLER LOWER EXTREMITY VEINS, BILATERAL INDICATION / CLINICAL INFORMATION: dvt. Lower extremity pain and swelling. TECHNIQUE: Duplex doppler imaging was performed through the veins of both lower extremities using venous jeremy rhiannon and other maneuvers. COMPARISON: None available. FINDINGS: Right Common Femoral vein: Negative. Right Femoral vein: Negative. Right Popliteal vein: Negative. Right Calf veins: Negative. Left Common Femoral vein: Negative. Left Femoral vein: Negative. Left Popliteal vein: Negative. Left Calf veins: Negative. Additional findings: None. IMPRESSION: 1. No sonographic evidence for DVT in either lower extremity. Signer Name: Julian Ellison MD Signed: 07/09/2020 12:18 PM Workstation Name: [id number]
--- NOTE | 2020-07-09 19:40 | Progress Note ---
Assessment and Plan Assessment Acute kidney injury on CKD, last known creatinine was 2.9 in December 2019. Ultrasound reviewed - no obstruction. Likely pre-renal from diuretic induced hypovolemia. Hypotension Azotemia Hypercalcemia, resolved with hydration Acidosis, now with alkalosis Hyponatremia Elevated alkaline phosphatase Dizziness Recommendations No immediate indication for dialysis Okay for oral diet Continue IV hydration Hold diuretics Stop bicarb tabs Keep MAP>65 Daily lab check Strict I/O Renally dose medications Avoid nephrotoxins Renal diet Elevated alkaline phosphatase - w/u as per primary Not stable for d/c at this time. Will need continued inpatient monitoring as labs although improving still show significant derangement. Subjective Date of service: 07/09/20 Principal diagnosis: Acute kidney injury Interval history: Dizziness resolved. Notes nausea this morning.Tolerating PO diet. Objective - Exam Narrative Exam: General appearance: No acute distress EENT: Anicteric sclera, hearing intact, dry mucosa Neck: Supple Respiratory: Normal effort, CTA bilaterally Cardiovascular: RRR, no rub Extremities: No edema Abdominal: Soft, nontender, colostomy pouch noted Integumentary: Dry, intact Musculoskeletal: No joint swelling or erythema Psychiatric: Appropriate mood/affect, judgment intact Neurologic: No focal deficits, moves all extremities - Vital Signs Vital signs: Vital Signs - 12hr 07/09/20 11:50 Temperature 97.3 F L Pulse Rate 85 Respiratory 16 Rate Blood Pressure 121/73 Blood Pressure 120/78 [Right] O2 Sat by Pulse 98 Oximetry - Lab 07/08/20 05:19 07/09/20 07:47 Most recent lab results Calcium 9.4 mg/dL (8.4-10.2) 07/09/20 07:47 Magnesium 3.10 mg/dL (1.7-2.3) H 07/04/20 18:46 Medications & Allergies - Medications Allergies/Adverse Reactions: Allergies gabapentin Allergy (Verified 07/04/20 18:09) Rash pregabalin [From Lyrica] Allergy (Verified 07/04/20 18:09) Rash soy Allergy (Verified 07/04/20 18:09) Unknown Iodinated Contrast Media [Iodinated Contrast Media - IV Dye] Adverse Reaction (Verified 07/04/20 18:09) Swelling Home Medications: Home Medications Medication Instructions Recorded Confirmed Last Taken Type Cholecalciferol (Vitamin D3) 1,000 unit PO DAILY 10/06/17 07/05/20 07/04/20 History [Vitamin D3] Multivitamin with Folic Acid [One 400 mcg PO DAILY 10/06/17 07/05/20 10/05/17 History Daily Multivitamin Tablet] Acetaminophen [Acetaminophen TAB] 650 mg PO Q4H PRN #15 tablet 10/08/17 07/05/20 Unknown Rx Sodium Bicarbonate 650 mg PO BID #60 tablet 10/08/17 07/05/20 07/04/20 Rx calcitrioL [Rocaltrol] 0.25 mcg PO DAILY #30 capsule 10/08/17 07/05/20 07/03/20 Rx Ferrous Sulfate [Ferrous Sulfate 324 mg PO DAILY 07/05/20 07/05/20 07/04/20 History 324 MG] oxyCODONE /ACETAMINOPHEN [Percocet 1 tab PO Q6H PRN #10 tablet 07/08/20 Unknown Rx 5/325 mg] raNITIdine HCl [Zantac] 150 mg PO DAILY #30 tablet 07/08/20 Unknown Rx Active Medications: Generic Name Dose Route Start Last Admin Trade Name Ernieq PRN Reason Stop Dose Admin Acetaminophen 650 mg 07/05/20 12:12 Acetaminophen 325 Mg Tab PO Q4H PRN Pain MILD(1-3)/Fever >100.5/ROSS Albuterol 2.5 mg 07/05/20 12:12 Albuterol 2.5 Mg/3 Ml Nebu IH Q4HRT PRN Shortness Of Breath Calcitriol 0.25 mcg 07/06/20 10:00 07/09/20 09:52 Calcitriol 0.25 Mcg Cap PO 0.25 mcg DAILY MIMI Administration Cholecalciferol 1,000 unit 07/06/20 10:00 07/09/20 09:52 Cholecalciferol (Vit D3) 1000 Unit (25 Mcg) Tab PO 1,000 unit DAILY MIMI Administration Famotidine 20 mg 07/06/20 10:00 07/09/20 09:52 Famotidine 20 Mg Tab PO 20 mg QDAY MIMI Administration Lactated Ringer's 1,000 mls @ 100 mls/hr 07/08/20 09:00 07/09/20 17:53 Lactated Ringers IV 100 mls/hr DIRECT MIMI Administration Multivitamins 1 each 07/06/20 10:00 07/09/20 09:52 Multivitamins ,Therapeutic Tab PO 1 each DAILY MIMI Administration Ondansetron HCl 4 mg 07/05/20 12:12 Ondansetron 4 Mg/2 Ml Inj IV Q8H PRN Nausea And Vomiting Oxycodone/Acetaminophen 1 tab 07/05/20 12:15 07/09/20 06:00 Oxycodone /Acetaminophen 5-325mg Tab PO 1 tab Q6H PRN Administration Pain , Severe (7-10) Sodium Bicarbonate 650 mg 07/11/20 22:00 Sodium Bicarbonate 650 Mg Tab PO BID MIMI Sodium Chloride 10 ml 07/05/20 22:00 07/09/20 09:51 Sodium Chloride 0.9% 10 Ml Flush Syringe IV Not Given BID MIMI Sodium Chloride 10 ml 07/05/20 12:12 Sodium Chloride 0.9% 10 Ml Flush Syringe IV PRN PRN LINE FLUSH
[2020-07-10] MEDS: oxyCODONE /ACETAMINOPHEN 5-325MG TAB PO PRN ×3 (05:35→22:01)
[2020-07-10] MEDS: LACTATED RINGERS 1,000 ML IV SCH ×2 (06:03→19:27)
--- NOTE | 2020-07-10 08:49 | Progress Note ---
Subjective Principal diagnosis: Acute kidney injury Interval history: Impression: Acute kidney injury on CKD SCr 2.9mg/dL in December 2019. Ultrasound reviewed - no obstruction. Likely pre- renal from diuretic induced hypovolemia. Hypotension Azotemia Hypercalcemia, resolved with hydration Acidosis, now with alkalosis Hyponatremia Elevated alkaline phosphatase Dizziness Plan No immediate indication for dialysis Continue IV hydration Hold diuretics Keep MAP>65 Daily lab check Strict I/O Renally dose medications Avoid nephrotoxins Renal diet Elevated alkaline phosphatase - w/u as per primary Not stable for d/c at this time. Will need continued inpatient monitoring as labs although improving still show significant derangement. Objective - Vital Signs Vital signs: Vital Signs - 12hr 07/09/20 07/10/20 07/10/20 22:32 04:15 07:00 Temperature 99.6 F 100.8 F H 99.2 F Pulse Rate 95 H 100 H Respiratory 18 18 Rate Blood Pressure 116/70 114/70 O2 Sat by Pulse 94 98 Oximetry - General Appearance General appearance: well-developed, well-nourished EENT: ATNC Respiratory: Present: Clear to Ascultation Cardiology: regular, S1S2 Gastrointestinal: normal, no tenderness, no distended Integumentary: no rash, warm and dry Psychiatric: cooperative - Lab 07/08/20 05:19 07/10/20 09:20 Most recent lab results Calcium 9.4 mg/dL (8.4-10.2) 07/09/20 07:47 Magnesium 3.10 mg/dL (1.7-2.3) H 07/04/20 18:46 Medications & Allergies - Medications Allergies/Adverse Reactions: Allergies gabapentin Allergy (Verified 07/04/20 18:09) Rash pregabalin [From Lyrica] Allergy (Verified 07/04/20 18:09) Rash soy Allergy (Verified 07/04/20 18:09) Unknown Iodinated Contrast Media [Iodinated Contrast Media - IV Dye] Adverse Reaction (Verified 07/04/20 18:09) Swelling Home Medications: Home Medications Medication Instructions Recorded Confirmed Last Taken Type Cholecalciferol (Vitamin D3) 1,000 unit PO DAILY 10/06/17 07/05/20 07/04/20 History [Vitamin D3] Multivitamin with Folic Acid [One 400 mcg PO DAILY 10/06/17 07/05/20 10/05/17 History Daily Multivitamin Tablet] Acetaminophen [Acetaminophen TAB] 650 mg PO Q4H PRN #15 tablet 10/08/17 07/05/20 Unknown Rx Sodium Bicarbonate 650 mg PO BID #60 tablet 10/08/17 07/05/20 07/04/20 Rx calcitrioL [Rocaltrol] 0.25 mcg PO DAILY #30 capsule 10/08/17 07/05/20 07/03/20 Rx Ferrous Sulfate [Ferrous Sulfate 324 mg PO DAILY 07/05/20 07/05/20 07/04/20 History 324 MG] oxyCODONE /ACETAMINOPHEN [Percocet 1 tab PO Q6H PRN #10 tablet 07/08/20 Unknown Rx 5/325 mg] raNITIdine HCl [Zantac] 150 mg PO DAILY #30 tablet 07/08/20 Unknown Rx Active Medications: Generic Name Dose Route Start Last Admin Trade Name Freq PRN Reason Stop Dose Admin Acetaminophen 650 mg 07/05/20 12:12 07/10/20 06:04 Acetaminophen 325 Mg Tab PO 650 mg Q4H PRN Administration Pain MILD(1-3)/Fever >100.5/ORSS Albuterol 2.5 mg 07/05/20 12:12 Albuterol 2.5 Mg/3 Ml Nebu IH Q4HRT PRN Shortness Of Breath Calcitriol 0.25 mcg 07/06/20 10:00 07/09/20 09:52 Calcitriol 0.25 Mcg Cap PO 0.25 mcg DAILY MIMI Administration Cholecalciferol 1,000 unit 07/06/20 10:00 07/09/20 09:52 Cholecalciferol (Vit D3) 1000 Unit (25 Mcg) Tab PO 1,000 unit DAILY MIMI Administration Famotidine 20 mg 07/06/20 10:00 07/09/20 09:52 Famotidine 20 Mg Tab PO 20 mg QDAY MIMI Administration Lactated Ringer's 1,000 mls @ 100 mls/hr 07/08/20 09:00 07/10/20 06:03 Lactated Ringers IV 100 mls/hr DIRECT MIMI Administration Multivitamins 1 each 07/06/20 10:00 07/09/20 09:52 Multivitamins ,Therapeutic Tab PO 1 each DAILY MIMI Administration Ondansetron HCl 4 mg 07/05/20 12:12 Ondansetron 4 Mg/2 Ml Inj IV Q8H PRN Nausea And Vomiting Oxycodone/Acetaminophen 1 tab 07/05/20 12:15 07/10/20 05:35 Oxycodone /Acetaminophen 5-325mg Tab PO 1 tab Q6H PRN Administration Pain , Severe (7-10) Sodium Chloride 10 ml 07/05/20 22:00 07/09/20 21:56 Sodium Chloride 0.9% 10 Ml Flush Syringe IV 10 ml BID MIMI Administration Sodium Chloride 10 ml 07/05/20 12:12 Sodium Chloride 0.9% 10 Ml Flush Syringe IV PRN PRN LINE FLUSH
[2020-07-10] MEDS: MULTIVITAMINS ,THERAPEUTIC TAB PO SCH (09:07)
[2020-07-10] MEDS: CALCITRIOL 0.25 MCG CAP PO SCH (09:07)
[2020-07-10] MEDS: CHOLECALCIFEROL (VIT D3) 1000 UNIT (25 mcg) TAB PO SCH (09:07)
[2020-07-10] MEDS: FAMOTIDINE 20 MG TAB PO SCH (09:07)
--- NOTE | 2020-07-10 11:04 | Progress Note ---
Assessment and Plan Assessment and plan: 74 YO Male with CKD S/P Intermittent Dialysis, GERD, HTN, RI, OA, UC presents to ED for evaluation. Patient reports "I have been feeling weak". Patient states that he had experienced generalized weakness over the past 1 week with persistently worsening symptoms over the same timeframe. Patient notified his butting saw operator who instructed him to seek further care at [facility]. Patient transported to [facility] via private vehicle for further care and evaluation of the aforementioned symptoms. The patient was seen and evaluated in the emergency department. All lab and imaging studies reviewed. The patient was found to have end-stage renal disease in need of dialysis. Nephrology team consulted in ED. Patient is pending dialysis access placement as per nephrology team recommendations. Patient denies fever, chills, chest pain, palpitation, productive cough, skin rash, recent ill contacts, or known exposure to COVID-19. Prior admission on 10/06/2017 reviewed. All medication listed at time of admission has been reconciled. Advanced care planning conducted in ED. Acute kidney injury on CKD stage IV secondary to vasomotor nephropathy Hyponatremia No dialysis access Severe peripheral neuropathy Acute cystitis Hypercalcemia Hypotension Otherwise hx of Hypertension Ulcerative Colitis Acute metabolic Acidosis Type 2 NSTEMI GERD Plan 06/07: Continue supportive care with gentle hydration, per butting saw operator renal function showing slight improvement creatinine down to 7.1. Continue Percocets for pain control for possible neuropathic pain. Vascular input appreciated renal input no indication for immediate dialysis at this time. We will continue antibiotics for urine culture while awaiting culture results. Hyponatremia is improving and metabolic acidosis is also improving. Anticipate discharge in 24 hours 07/08: Creatinine continues to improve. Will anticipate discharge of diuretics which can be reevaluated for reinitiation with butting saw operator outpatient. If okay with butting saw operator patient can be discharged today. If discharged today will need home health with PT OT also at bedside commode. This has been ordered 07/09: Discontinue morphine secondary to nausea with vomiting. PT to obtain brace for the patient until he is able to retrieve his. Creatinine only came down to 5.3 will continue to monitor as it has not yet at his baseline. He continues to report severe pain in the lower extremity refused to ambulate with PT. We will recheck for DVT as patient has a history of prior DVT and has an IVC filter. No clear evidence of physical sign of thrombophlebitis. Continue pain control. 07/10: 74-year-old male admitted as noted above due to generalized weakness. Has severe peripheral neuropathy uses a leg brace. Very resistant to any physical therapy. Also resistant to a SNF states he will go home. Currently being managed for acute kidney injury on chronic kidney disease with stage IV. Not ye t in end-stage renal disease. No indication for dialysis at this time nephrology awaiting improvement in renal and creatinine prior to discharge. Vascular input was noted on admission. Antibiotics completed Continue supportive care Continue current management Tax Clerk consulted for possible coverage DVT/GI prophy History Interval history: Patient admitted with generalized weakness improving, patient states that he is totally disabled due to severe peripheral neuropathy and is refusing any ambulation also refusing placement. Hospitalist Physical - Physical exam Narrative exam: General appearance: Present: No distress. - EENT Eyes: Present: PERRL ENT: hearing intact, clear oral mucosa - Neck Neck: Present: supple, normal ROM - Respiratory Respiratory effort: normal Respiratory: bilateral: CTA - Cardiovascular Heart Sounds: Present: S1 & S2. Absent: rub, click - Extremities Extremities: pulses symmetrical, No edema Peripheral Pulses: within normal limits - Abdominal General gastrointestinal: Present: Left-sided colostomy soft, non-tender, non- distended, normal bowel sounds Male genitourinary: Present: normal - Integumentary Integumentary: Present: Multiple lesions well-healed scars on the left upper extremity clear, warm, dry - Musculoskeletal Musculoskeletal: generalized weakness - Psychiatric Psychiatric: appropriate mood/affect, intact judgment & insight - Neurologic Neurologic: CNII-XII intact, moves all extremities - Constitutional Vitals: Temp Pulse Resp BP Pulse Ox 99.2 F 100 H 18 114/70 98 07/10/20 07:00 07/10/20 04:15 07/10/20 04:15 07/10/20 04:15 07/10/20 04:15 General appearance: Present: no acute distress HEART Score - HEART Score Troponin: Troponin T 0.048 ng/mL (0.00-0.029) H 07/04/20 18:46 Results - Labs CBC & Chem 7: 07/08/20 05:19 07/10/20 09:20 Labs: Laboratory Last Values WBC 9.5 K/mm3 (4.5-11.0) 07/08/20 05:19 RBC 3.84 M/mm3 (3.65-5.03) 07/08/20 05:19 Hgb 13.1 gm/dl (11.8-15.2) 07/08/20 05:19 Hct 37.5 % (35.5-45.6) 07/08/20 05:19 MCV 98 fl (84-94) H 07/08/20 05:19 MCH 34 pg (28-32) H 07/08/20 05:19 MCHC 35 % (32-34) H 07/08/20 05:19 RDW 13.2 % (13.2-15.2) 07/08/20 05:19 Plt Count 151 K/mm3 (140-440) 07/08/20 05:19 Lymph % (Auto) 11.3 % (13.4-35.0) L 07/04/20 18:46 [place] % (Auto) 9.2 % (0.0-7.3) H 07/04/20 18:46 Eos % (Auto) 0.3 % (0.0-4.3) 07/04/20 18:46 Baso % (Auto) 0.2 % (0.0-1.8) 07/04/20 18:46 Lymph # (Auto) 0.9 K/mm3 (1.2-5.4) L 07/04/20 18:46 [place] # (Auto) 0.7 K/mm3 (0.0-0.8) 07/04/20 18:46 Eos # (Auto) 0.0 K/mm3 (0.0-0.4) 07/04/20 18:46 Baso # (Auto) 0.0 K/mm3 (0.0-0.1) 07/04/20 18:46 Seg Neutrophils % 79.0 % (40.0-70.0) H 07/04/20 18:46 Seg Neutrophils # 6.3 K/mm3 (1.8-7.7) 07/04/20 18:46 VBG pH 7.283 (7.320-7.420) L 07/04/20 18:46 Sodium 134 mmol/L (137-145) L 07/10/20 09:20 Potassium 4.1 mmol/L (3.6-5.0) 07/10/20 09:20 Chloride 92.1 mmol/L (98-107) L 07/10/20 09:20 Carbon Dioxide 29 mmol/L (22-30) 07/10/20 09:20 Anion Gap 17 mmol/L 07/10/20 09:20 BUN 94 mg/dL (9-20) H 07/10/20 09:20 Creatinine 4.8 mg/dL (0.8-1.3) H 07/10/20 09:20 Estimated GFR 14 ml/min 07/10/20 09:20 BUN/Creatinine Ratio 20 % 07/10/20 09:20 Glucose 138 mg/dL (75-100) H 07/10/20 09:20 Calcium 9.0 mg/dL (8.4-10.2) 07/10/20 09:20 Magnesium 3.10 mg/dL (1.7-2.3) H 07/04/20 18:46 Total Bilirubin 0.60 mg/dL (0.1-1.2) 07/04/20 18:46 AST 23 units/L (5-40) 07/04/20 18:46 ALT 45 units/L (7-56) 07/04/20 18:46 Alkaline Phosphatase 558 units/L (35-129) H 07/04/20 18:46 Troponin T 0.048 ng/mL (0.00-0.029) H 07/04/20 18:46 NT-Pro-B Natriuret Pep 649.6 pg/mL (0-900) 07/04/20 18:46 Total Protein 9.2 g/dL (6.3-8.2) H 07/04/20 18:46 Albumin 4.7 g/dL (3.9-5) 07/04/20 18:46 Albumin/Globulin Ratio 1.0 % 07/04/20 18:46 Triglycerides 62 mg/dL (2-149) 07/04/20 18:46 Cholesterol 140 mg/dL (50-199) 07/04/20 18:46 LDL Cholesterol Direct 55 mg/dL (50-130) 07/04/20 18:46 HDL Cholesterol 95 mg/dL (40-59) H 07/04/20 18:46 Cholesterol/HDL Ratio 1.47 % 07/04/20 18:46 Urine Color Yellow (Yellow) 07/05/20 15:30 Urine Turbidity Cloudy (Clear) 07/05/20 15:30 Urine pH 5.0 (5.0-7.0) 07/05/20 15:30 Ur Specific [place] 1.012 (1.003-1.030) 07/05/20 15:30 Urine Protein 30 mg/dl mg/dL (Negative) 07/05/20 15:30 Urine Glucose (UA) Neg mg/dL (Negative) 07/05/20 15:30 Urine Ketones Neg mg/dL (Negative) 07/05/20 15:30 Urine Blood Mod (Negative) 07/05/20 15:30 Urine Nitrite Neg (Negative) 07/05/20 15:30 Urine Bilirubin Neg (Negative) 07/05/20 15:30 Urine Urobilinogen < 2.0 mg/dL (<2.0) 07/05/20 15:30 Ur Leukocyte Esterase Lg (Negative) 07/05/20 15:30 Urine WBC (Auto) > 182.0 /HPF (0.0-6.0) H 07/05/20 15:30 Urine RBC (Auto) 14.0 /HPF (0.0-6.0) 07/05/20 15:30 Urine Bacteria (Auto) 2+ /HPF (Negative) 07/05/20 15:30 Urine WBC Clumps 2+ /HPF 07/05/20 15:30 Urine Mucus Few /HPF 07/05/20 15:30 Urine Yeast (Budding) 3+ /HPF 07/05/20 15:30 Coronavirus (PCR) Negative (Negative) 07/06/20 Unknown Microbiology: Microbiology 07/07/20 Unknown Urine,Clean Catch Urine Culture - Final [place]/IV: Voiding Method Urinal Active Medications - Current Medications Current Medications: Generic Name Dose Route Start Last Admin Trade Name Freq PRN Reason Stop Dose Admin Acetaminophen 650 mg 07/05/20 12:12 07/10/20 06:04 Acetaminophen 325 Mg Tab PO 650 mg Q4H PRN Administration Pain MILD(1-3)/Fever >100.5/ROSS Albuterol 2.5 mg 07/05/20 12:12 Albuterol 2.5 Mg/3 Ml Nebu IH Q4HRT PRN Shortness Of Breath Calcitriol 0.25 mcg 07/06/20 10:00 07/10/20 09:07 Calcitriol 0.25 Mcg Cap PO 0.25 mcg DAILY MIMI Administration Cholecalciferol 1,000 unit 07/06/20 10:00 07/10/20 09:07 Cholecalciferol (Vit D3) 1000 Unit (25 Mcg) Tab PO 1,000 unit DAILY MIMI Administration Famotidine 20 mg 07/06/20 10:00 07/10/20 09:07 Famotidine 20 Mg Tab PO 20 mg QDAY MIMI Administration Lactated Ringer's 1,000 mls @ 100 mls/hr 07/08/20 09:00 07/10/20 06:03 Lactated Ringers IV 100 mls/hr DIRECT MIMI Administration Multivitamins 1 each 07/06/20 10:00 07/10/20 09:07 Multivitamins ,Therapeutic Tab PO 1 each DAILY MIMI Administration Ondansetron HCl 4 mg 07/05/20 12:12 Ondansetron 4 Mg/2 Ml Inj IV Q8H PRN Nausea And Vomiting Oxycodone/Acetaminophen 1 tab 07/05/20 12:15 07/10/20 05:35 Oxycodone /Acetaminophen 5-325mg Tab PO 1 tab Q6H PRN Administration Pain , Severe (7-10) Sodium Chloride 10 ml 07/05/20 22:00 07/10/20 09:07 Sodium Chloride 0.9% 10 Ml Flush Syringe IV 10 ml BID MIMI Administration Sodium Chloride 10 ml 07/05/20 12:12 Sodium Chloride 0.9% 10 Ml Flush Syringe IV PRN PRN LINE FLUSH Nutrition/Malnutrition Assess - Dietary Evaluation Nutrition/Malnutrition Findings: Nutrition Notes Start: 07/06/20 10:54 Freq: Status: Active Protocol: Document 07/06/20 10:54 AT (Rec: 07/06/20 11:11 AT [id number]) Co-Sign 07/06/20 10:54 MK Nutrition Notes Need for Assessment generated from: MD Order,attic fans mechanic,MST Initial or Follow up Brief Note Current Diagnosis CKD (stage V CKD),Hypertension Other Pertinent Diagnosis Ileostomy, GERD, Osteoarthritis, Ulcerative Colitis, NSTEMI Current Diet NPO [place] Body Weight (kg) 0 Subjective/Other Information Consult for ONS and MST of 3. Per chart, pt consumed 100% of dinner last night. Pt reports consuming 100% of breakfast today. Pt is cognizant of K, Phos, and protein rich foods. Pt reports no weight loss and does not appear to be at nutritional risk at this time. Pt reports adhering to a renal diet for years. Pt denies N/V/D. Pt states that he was consuming [place] ONS QID, providing 1680 kcal/day FOOTWEAR STITCHER (meets 85% of EER and 92% estimated protein needs). Pt declined ONS in favor of meals . Food preferences recorded. Pt reports a normal appetite and declined further diet education. Nutrition Intervention Revisit per MD consult or patient Sign Off request:
[2020-07-11] MEDS: oxyCODONE /ACETAMINOPHEN 5-325MG TAB PO PRN ×2 (05:15→17:23)
--- NOTE | 2020-07-11 07:00 | Progress Note ---
Assessment and Plan Assessment and plan: 74 YO Male with CKD S/P Intermittent Dialysis, GERD, HTN, [place], OA, UC presents to ED for evaluation. Patient reports "I have been feeling weak". Patient states that he had experienced generalized weakness over the past 1 week with persistently worsening symptoms over the same timeframe. Patient notified his engineering drawings checker who instructed him to seek further care at [facility]. Patient transported to [facility] via private vehicle for further care and evaluation of the aforementioned symptoms. The patient was seen and evaluated in the emergency department. All lab and imaging studies reviewed. The patient was found to have end-stage renal disease in need of dialysis. Nephrology team consulted in ED. Patient is pending dialysis access placement as per nephrology team recommendations. Patient denies fever, chills, chest pain, palpitation, productive cough, skin rash, recent ill contacts, or known exposure to COVID-19. Prior admission on 10/06/2017 reviewed. All medication listed at time of admission has been reconciled. Advanced care planning conducted in ED. Acute kidney injury on CKD stage IV secondary to vasomotor nephropathy Hyponatremia No dialysis access Severe peripheral neuropathy Acute cystitis Hypercalcemia Hypotension Otherwise hx of Hypertension Ulcerative Colitis Acute metabolic Acidosis Type 2 NSTEMI GERD Plan 06/07: Continue supportive care with gentle hydration, per engineering drawings checker renal function showing slight improvement creatinine down to 7.1. Continue Percocets for pain control for possible neuropathic pain. Vascular input appreciated renal input no indication for immediate dialysis at this time. We will continue antibiotics for urine culture while awaiting culture results. Hyponatremia is improving and metabolic acidosis is also improving. Anticipate discharge in 24 hours 07/08: Creatinine continues to improve. Will anticipate discharge of diuretics which can be reevaluated for reinitiation with engineering drawings checker outpatient. If okay with engineering drawings checker patient can be discharged today. If discharged today will need home health with PT OT also at bedside commode. This has been ordered 07/09: Discontinue morphine secondary to nausea with vomiting. PT to obtain brace for the patient until he is able to retrieve his. Creatinine only came down to 5.3 will continue to monitor as it has not yet at his baseline. He continues to report severe pain in the lower extremity refused to ambulate with PT. We will recheck for DVT as patient has a history of prior DVT and has an IVC filter. No clear evidence of physical sign of thrombophlebitis. Continue pain control. 07/10: 74-year-old male admitted as noted above due to generalized weakness. Has severe peripheral neuropathy uses a leg brace. Very resistant to any physical therapy. Also resistant to a SNF states he will go home. Currently being managed for acute kidney injury on chronic kidney disease with stage IV. Not y et in end-stage renal disease. No indication for dialysis at this time nephrology awaiting improvement in renal and creatinine prior to discharge. Vascular input was noted on admission. Antibiotics completed Continue supportive care Continue current management Steward/Stewardess Wine consulted for possible coverage DVT/GI prophy 07/11/2020 ; patient is very weak and resistant to any physical therapy and placement. Kidney function showed slight improvement. Nephrology is following the patient and recommend to continue monitor his renal function and electrolytes. Patient will be monitored and will be discharged once cleared by nephrology. Blood pressure is within normal limit. History Interval history: Patient was seen and evaluated this morning Patient was admitted for generalized weakness. Patient has severe peripheral neuropathy and is not ambulating and states significant pain. He said he tried multiple medications including gabapentin and Lyrica without improvement. Hospitalist Physical - Physical exam Narrative exam: Not in cardiopulmonary distress. The patient appeared well nourished and normally developed. Vital signs as documented. Head exam is unremarkable. No scleral icterus . Neck is without jugular venous distension, thyromegaly, or carotid bruits. Lungs are clear to auscultation. Cardiac exam reveals regular rate and Rhythm. Abdominal exam reveals normal bowel sounds, nontender, no organomegaly. Extremities are nonedematous and both femoral and pedal pulses are normal. REED POLISHER: Alert and oriented 3. No focal weakness. - Constitutional Vitals: Temp Pulse Resp BP Pulse Ox 99.0 F 79 18 110/73 99 07/11/20 05:22 07/11/20 05:22 07/11/20 05:22 07/11/20 05:22 07/11/20 05:22 General appearance: Present: no acute distress HEART Score - HEART Score Troponin: Troponin T 0.048 ng/mL (0.00-0.029) H 07/04/20 18:46 Results - Labs CBC & Chem 7: 07/08/20 05:19 07/11/20 10:32 Labs: Laboratory Last Values WBC 9.5 K/mm3 (4.5-11.0) 05/15/21 05:19 RBC 3.84 M/mm3 (3.65-5.03) 07/08/20 05:19 Hgb 13.1 gm/dl (11.8-15.2) 07/08/20 05:19 Hct 37.5 % (35.5-45.6) 07/08/20 05:19 MCV 98 fl (84-94) H 07/08/20 05:19 MCH 34 pg (28-32) H 07/08/20 05:19 MCHC 35 % (32-34) H 07/08/20 05:19 RDW 13.2 % (13.2-15.2) 07/08/20 05:19 Plt Count 151 K/mm3 (140-440) 07/08/20 05:19 Lymph % (Auto) 11.3 % (13.4-35.0) L 07/04/20 18:46 [place] % (Auto) 9.2 % (0.0-7.3) H 07/04/20 18:46 Eos % (Auto) 0.3 % (0.0-4.3) 07/04/20 18:46 Baso % (Auto) 0.2 % (0.0-1.8) 07/04/20 18:46 Lymph # (Auto) 0.9 K/mm3 (1.2-5.4) L 07/04/20 18:46 [place] # (Auto) 0.7 K/mm3 (0.0-0.8) 07/04/20 18:46 Eos # (Auto) 0.0 K/mm3 (0.0-0.4) 07/04/20 18:46 Baso # (Auto) 0.0 K/mm3 (0.0-0.1) 07/04/20 18:46 Seg Neutrophils % 79.0 % (40.0-70.0) H 07/04/20 18:46 Seg Neutrophils # 6.3 K/mm3 (1.8-7.7) 07/04/20 18:46 VBG pH 7.283 (7.320-7.420) L 07/04/20 18:46 Sodium 134 mmol/L (137-145) L 07/10/20 09:20 Potassium 4.1 mmol/L (3.6-5.0) 07/10/20 09:20 Chloride 92.1 mmol/L (98-107) L 07/10/20 09:20 Carbon Dioxide 29 mmol/L (22-30) 07/10/20 09:20 Anion Gap 17 mmol/L 07/10/20 09:20 BUN 94 mg/dL (9-20) H 07/10/20 09:20 Creatinine 4.8 mg/dL (0.8-1.3) H 07/10/20 09:20 Estimated GFR 14 ml/min 07/10/20 09:20 BUN/Creatinine Ratio 20 % 07/10/20 09:20 Glucose 138 mg/dL (75-100) H 07/10/20 09:20 Calcium 9.0 mg/dL (8.4-10.2) 07/10/20 09:20 Magnesium 3.10 mg/dL (1.7-2.3) H 07/04/20 18:46 Total Bilirubin 0.60 mg/dL (0.1-1.2) 07/04/20 18:46 AST 23 units/L (5-40) 07/04/20 18:46 ALT 45 units/L (7-56) 07/04/20 18:46 Alkaline Phosphatase 558 units/L (35-129) H 07/04/20 18:46 Troponin T 0.048 ng/mL (0.00-0.029) H 07/04/20 18:46 NT-Pro-B Natriuret Pep 649.6 pg/mL (0-900) 07/04/20 18:46 Total Protein 9.2 g/dL (6.3-8.2) H 07/04/20 18:46 Albumin 4.7 g/dL (3.9-5) 07/04/20 18:46 Albumin/Globulin Ratio 1.0 % 07/04/20 18:46 Triglycerides 62 mg/dL (2-149) 07/04/20 18:46 Cholesterol 140 mg/dL (50-199) 07/04/20 18:46 LDL Cholesterol Direct 55 mg/dL (50-130) 07/04/20 18:46 HDL Cholesterol 95 mg/dL (40-59) H 07/04/20 18:46 Cholesterol/HDL Ratio 1.47 % 07/04/20 18:46 Urine Color Yellow (Yellow) 07/05/20 15:30 Urine Turbidity Cloudy (Clear) 07/05/20 15:30 Urine pH 5.0 (5.0-7.0) 07/05/20 15:30 Ur Specific [place] 1.012 (1.003-1.030) 07/05/20 15:30 Urine Protein 30 mg/dl mg/dL (Negative) 07/05/20 15:30 Urine Glucose (UA) Neg mg/dL (Negative) 07/05/20 15:30 Urine Ketones Neg mg/dL (Negative) 07/05/20 15:30 Urine Blood Mod (Negative) 07/05/20 15:30 Urine Nitrite Neg (Negative) 07/05/20 15:30 Urine Bilirubin Neg (Negative) 07/05/20 15:30 Urine Urobilinogen < 2.0 mg/dL (<2.0) 07/05/20 15:30 Ur Leukocyte Esterase Lg (Negative) 07/05/20 15:30 Urine WBC (Auto) > 182.0 /HPF (0.0-6.0) H 07/05/20 15:30 Urine RBC (Auto) 14.0 /HPF (0.0-6.0) 07/05/20 15:30 Urine Bacteria (Auto) 2+ /HPF (Negative) 07/05/20 15:30 Urine WBC Clumps 2+ /HPF 07/05/20 15:30 Urine Mucus Few /HPF 07/05/20 15:30 Urine Yeast (Budding) 3+ /HPF 07/05/20 15:30 Coronavirus (PCR) Negative (Negative) 07/06/20 Unknown [place]/IV: Voiding Method Urinal Active Medications - Current Medications Current Medications: Generic Name Dose Route Start Last Admin Trade Name Freq PRN Reason Stop Dose Admin Acetaminophen 650 mg 07/05/20 12:12 07/10/20 06:04 Acetaminophen 325 Mg Tab PO 650 mg Q4H PRN Administration Pain MILD(1-3)/Fever >100.5/ROSS Albuterol 2.5 mg 07/05/20 12:12 Albuterol 2.5 Mg/3 Ml Nebu IH Q4HRT PRN Shortness Of Breath Calcitriol 0.25 mcg 07/06/20 10:00 07/10/20 09:07 Calcitriol 0.25 Mcg Cap PO 0.25 mcg DAILY MIMI Administration Cholecalciferol 1,000 unit 07/06/20 10:00 07/10/20 09:07 Cholecalciferol (Vit D3) 1000 Unit (25 Mcg) Tab PO 1,000 unit DAILY MIMI Administration Famotidine 20 mg 07/06/20 10:00 07/10/20 09:07 Famotidine 20 Mg Tab PO 20 mg QDAY MIMI Administration Lactated Ringer's 1,000 mls @ 100 mls/hr 07/08/20 09:00 07/10/20 19:27 Lactated Ringers IV 100 mls/hr DIRECT MIMI Administration Multivitamins 1 each 07/06/20 10:00 07/10/20 09:07 Multivitamins ,Therapeutic Tab PO 1 each DAILY MIMI Administration Ondansetron HCl 4 mg 07/05/20 12:12 Ondansetron 4 Mg/2 Ml Inj IV Q8H PRN Nausea And Vomiting Oxycodone/Acetaminophen 1 tab 07/05/20 12:15 07/11/20 05:15 Oxycodone /Acetaminophen 5-325mg Tab PO 1 tab Q6H PRN Administration Pain , Severe (7-10) Sodium Chloride 10 ml 07/05/20 22:00 07/10/20 22:03 Sodium Chloride 0.9% 10 Ml Flush Syringe IV 10 ml BID MIMI Administration Sodium Chloride 10 ml 07/05/20 12:12 Sodium Chloride 0.9% 10 Ml Flush Syringe IV PRN PRN LINE FLUSH Nutrition/Malnutrition Assess - Dietary Evaluation Nutrition/Malnutrition Findings: Nutrition Notes Start: 07/06/20 10:54 Freq: Status: Active Protocol: Document 07/06/20 10:54 AT (Rec: 07/06/20 11:11 AT [id number]) Co-Sign 07/06/20 10:54 MK Nutrition Notes Need for Assessment generated from: MD Order,glass breaker,MST Initial or Follow up Brief Note Current Diagnosis CKD (stage V CKD),Hypertension Other Pertinent Diagnosis Ileostomy, GERD, Osteoarthritis, Ulcerative Colitis, NSTEMI Current Diet NPO [place] Body Weight (kg) 0 Subjective/Other Information Consult for ONS and MST of 3. Per chart, pt consumed 100% of dinner last night. Pt reports consuming 100% of breakfast today. Pt is cognizant of K, Phos, and protein rich foods. Pt reports no weight loss and does not appear to be at nutritional risk at this time. Pt reports adhering to a renal diet for years. Pt denies N/V/D. 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 Pt declined ONS in favor of meals . Food preferences recorded. Pt reports a normal appetite and declined further diet education. Nutrition Intervention Revisit per MD consult or patient Sign Off request:
--- NOTE | 2020-07-11 08:48 | Progress Note ---
Assessment and Plan Impression: * Acute kidney injury secondary to prerenal azotemia due to volume depletion related to diuretics on CKD --SCr 2.9mg/dL in December 2019. --Renal ultrasound reviewed - no obstruction * Hypotension * Azotemia * Hypercalcemia, resolved with hydration * Acidosis, now with alkalosis * Hyponatremia * Elevated alkaline phosphatase * Dizziness Plan * AM labs are pending * No immediate indication for dialysis * Continue IV hydration * Hold diuretics * Keep MAP>65 * Strict I/O * Renally dose medications * Avoid nephrotoxins * Renal diet * Elevated alkaline phosphatase - w/u as per primary * Not stable for d/c at this time. Will need continued inpatient monitoring as labs although improving still show significant derangement. Subjective Date of service: 07/11/20 Principal diagnosis: Acute kidney injury Interval history: Patient reports that he worked with OT and PT today Objective - Vital Signs Vital signs: Vital Signs - 12hr 07/10/20 07/11/20 22:06 05:22 Temperature 97.7 F 99.0 F Pulse Rate 83 79 Respiratory 18 18 Rate Blood Pressure 109/67 110/73 O2 Sat by Pulse 98 99 Oximetry - General Appearance General appearance: well-developed, well-nourished EENT: ATNC Respiratory: Present: Clear to Ascultation Cardiology: regular, S1S2 Gastrointestinal: normal, no tenderness, no distended Integumentary: no rash, warm and dry Psychiatric: mood/affect appropriate, cooperative - Lab 07/08/20 05:19 07/10/20 09:20 Most recent lab results Calcium 9.0 mg/dL (8.4-10.2) 07/10/20 09:20 Magnesium 3.10 mg/dL (1.7-2.3) H 07/04/20 18:46 Medications & Allergies - Medications Allergies/Adverse Reactions: Allergies gabapentin Allergy (Verified 07/04/20 18:09) Rash pregabalin [From Lyrica] Allergy (Verified 07/04/20 18:09) Rash soy Allergy (Verified 07/04/20 18:09) Unknown Iodinated Contrast Media [Iodinated Contrast Media - IV Dye] Adverse Reaction (Verified 07/04/20 18:09) Swelling Home Medications: Home Medications Medication Instructions Recorded Confirmed Last Taken Type Cholecalciferol (Vitamin D3) 1,000 unit PO DAILY 10/06/17 07/05/20 07/04/20 History [Vitamin D3] Multivitamin with Folic Acid [One 400 mcg PO DAILY 10/06/17 07/05/20 10/05/17 History Daily Multivitamin Tablet] Acetaminophen [Acetaminophen TAB] 650 mg PO Q4H PRN #15 tablet 10/08/17 07/05/20 Unknown Rx Sodium Bicarbonate 650 mg PO BID #60 tablet 10/08/17 07/05/20 07/04/20 Rx calcitrioL [Rocaltrol] 0.25 mcg PO DAILY #30 capsule 10/08/17 07/05/20 07/03/20 Rx Ferrous Sulfate [Ferrous Sulfate 324 mg PO DAILY 07/05/20 07/05/20 07/04/20 History 324 MG] oxyCODONE /ACETAMINOPHEN [Percocet 1 tab PO Q6H PRN #10 tablet 07/08/20 Unknown Rx 5/325 mg] raNITIdine HCl [Zantac] 150 mg PO DAILY #30 tablet 07/08/20 Unknown Rx Active Medications: Generic Name Dose Route Start Last Admin Trade Name Ernieq PRN Reason Stop Dose Admin Acetaminophen 650 mg 07/05/20 12:12 07/10/20 06:04 Acetaminophen 325 Mg Tab PO 650 mg Q4H PRN Administration Pain MILD(1-3)/Fever >100.5/ROSS Albuterol 2.5 mg 07/05/20 12:12 Albuterol 2.5 Mg/3 Ml Nebu IH Q4HRT PRN Shortness Of Breath Calcitriol 0.25 mcg 07/06/20 10:00 07/10/20 09:07 Calcitriol 0.25 Mcg Cap PO 0.25 mcg DAILY MIMI Administration Cholecalciferol 1,000 unit 07/06/20 10:00 07/10/20 09:07 Cholecalciferol (Vit D3) 1000 Unit (25 Mcg) Tab PO 1,000 unit DAILY MIMI Administration Famotidine 20 mg 07/06/20 10:00 07/10/20 09:07 Famotidine 20 Mg Tab PO 20 mg QDAY MIMI Administration Lactated Ringer's 1,000 mls @ 100 mls/hr 07/08/20 09:00 07/10/20 19:27 Lactated Ringers IV 100 mls/hr DIRECT MIMI Administration Multivitamins 1 each 07/06/20 10:00 07/10/20 09:07 Multivitamins ,Therapeutic Tab PO 1 each DAILY MIMI Administration Ondansetron HCl 4 mg 07/05/20 12:12 Ondansetron 4 Mg/2 Ml Inj IV Q8H PRN Nausea And Vomiting Oxycodone/Acetaminophen 1 tab 07/05/20 12:15 07/11/20 05:15 Oxycodone /Acetaminophen 5-325mg Tab PO 1 tab Q6H PRN Administration Pain , Severe (7-10) Sodium Chloride 10 ml 07/05/20 22:00 07/10/20 22:03 Sodium Chloride 0.9% 10 Ml Flush Syringe IV 10 ml BID MIMI Administration Sodium Chloride 10 ml 07/05/20 12:12 Sodium Chloride 0.9% 10 Ml Flush Syringe IV PRN PRN LINE FLUSH
[2020-07-11] MEDS: FAMOTIDINE 20 MG TAB PO SCH (09:15)
[2020-07-11] MEDS: CALCITRIOL 0.25 MCG CAP PO SCH (09:15)
[2020-07-11] MEDS: MULTIVITAMINS ,THERAPEUTIC TAB PO SCH (09:15)
[2020-07-11] MEDS: CHOLECALCIFEROL (VIT D3) 1000 UNIT (25 mcg) TAB PO SCH (09:15)
[2020-07-11 11:52] LABS: Calcium 9.3 mg/dL (8.4-10.2)
[2020-07-11] MEDS ORDERED: SODIUM BICARBONATE 650 MG TAB PO SCH (22:00)
[2020-07-12] MEDS: oxyCODONE /ACETAMINOPHEN 5-325MG TAB PO PRN ×2 (03:52→13:06)
--- NOTE | 2020-07-12 08:41 | Progress Note ---
Assessment and Plan Assessment and plan: 74 YO Male with CKD S/P Intermittent Dialysis, GERD, HTN, NH, OA, UC presents to ED for evaluation. Patient reports "I have been feeling weak". Patient states that he had experienced generalized weakness over the past 1 week with persistently worsening symptoms over the same timeframe. Patient notified his psych coordinator who instructed him to seek further care at [facility]. Patient transported to [facility] via private vehicle for further care and evaluation of the aforementioned symptoms. The patient was seen and evaluated in the emergency department. All lab and imaging studies reviewed. The patient was found to have end-stage renal disease in need of dialysis. Nephrology team consulted in ED. Patient is pending dialysis access placement as per nephrology team recommendations. Patient denies fever, chills, chest pain, palpitation, productive cough, skin rash, recent ill contacts, or known exposure to COVID-19. Prior admission on 10/06/2017 reviewed. All medication listed at time of admission has been reconciled. Advanced care planning conducted in ED. Acute kidney injury on CKD stage IV secondary to vasomotor nephropathy Hyponatremia No dialysis access Severe peripheral neuropathy Acute cystitis Hypercalcemia Hypotension Otherwise hx of Hypertension Ulcerative Colitis Acute metabolic Acidosis Type 2 NSTEMI GERD Plan 06/07: Continue supportive care with gentle hydration, per psych coordinator renal function showing slight improvement creatinine down to 7.1. Continue Percocets for pain control for possible neuropathic pain. Vascular input appreciated renal input no indication for immediate dialysis at this time. We will continue antibiotics for urine culture while awaiting culture results. Hyponatremia is improving and metabolic acidosis is also improving. Anticipate discharge in 24 hours 07/08: Creatinine continues to improve. Will anticipate discharge of diuretics which can be reevaluated for reinitiation with psych coordinator outpatient. If okay with psych coordinator patient can be discharged today. If discharged today will need home health with PT OT also at bedside commode. This has been ordered 07/09: Discontinue morphine secondary to nausea with vomiting. PT to obtain brace for the patient until he is able to retrieve his. Creatinine only came down to 5.3 will continue to monitor as it has not yet at his baseline. He continues to report severe pain in the lower extremity refused to ambulate with PT. We will recheck for DVT as patient has a history of prior DVT and has an IVC filter. No clear evidence of physical sign of thrombophlebitis. Continue pain control. 07/10: 74-year-old male admitted as noted above due to generalized weakness. Has severe peripheral neuropathy uses a leg brace. Very resistant to any physical therapy. Also resistant to a SNF states he will go home. Currently being managed for acute kidney injury on chronic kidney disease with stage IV. Not y et in end-stage renal disease. No indication for dialysis at this time nephrology awaiting improvement in renal and creatinine prior to discharge. Vascular input was noted on admission. Antibiotics completed Continue supportive care Continue current management [facility] Education Coordinator consulted for possible coverage DVT/GI prophy 07/11/2020 ; patient is very weak and resistant to any physical therapy and placement. Kidney function showed slight improvement. Nephrology is following the patient and recommend to continue monitor his renal function and electrolytes. Patient will be monitored and will be discharged once cleared by nephrology. Blood pressure is within normal limit. 07/12/2020; patient's creatinine was 4.6 this morning and sodium was 133. Patient was seen yesterday by nephrology and recommend inpatient care. Patient was evaluated by PT OT and recommend home health PT. discussed with nephrology and nephrology is okay to discharge the patient with close monitoring of his renal function at [place] [facility]. History Interval history: Patient was seen and evaluated this morning Patient was admitted for generalized weakness. Patient has peripheral neuropathy and said previously took gabapentin and Lyrica without any change. Hospitalist Physical - Physical exam Narrative exam: Not in cardiopulmonary distress. The patient appeared well nourished and normally developed. Vital signs as documented. Head exam is unremarkable. No scleral icterus . Neck is without jugular venous distension, thyromegaly, or carotid bruits. Lungs are clear to auscultation. Cardiac exam reveals regular rate and Rhythm. Abdominal exam reveals normal bowel sounds, nontender, no organomegaly. Extremities are nonedematous and both femoral and pedal pulses are normal. [employer]: Alert and oriented 3. No focal weakness. - Constitutional Vitals: Temp Pulse Resp BP Pulse Ox 99.8 F H 79 16 115/68 97 07/12/20 05:41 07/12/20 05:41 07/12/20 05:41 07/12/20 05:41 07/12/20 05:41 General appearance: Present: no acute distress HEART Score - HEART Score Troponin: Troponin T 0.048 ng/mL (0.00-0.029) H 07/04/20 18:46 Results - Labs CBC & Chem 7: 07/08/20 05:19 07/12/20 07:45 Labs: Laboratory Last Values WBC 9.5 K/mm3 (4.5-11.0) 07/08/20 05:19 RBC 3.84 M/mm3 (3.65-5.03) 07/08/20 05:19 Hgb 13.1 gm/dl (11.8-15.2) 07/08/20 05:19 Hct 37.5 % (35.5-45.6) 07/08/20 05:19 MCV 98 fl (84-94) H 07/08/20 05:19 MCH 34 pg (28-32) H 07/08/20 05:19 MCHC 35 % (32-34) H 07/08/20 05:19 RDW 13.2 % (13.2-15.2) 07/08/20 05:19 Plt Count 151 K/mm3 (140-440) 07/08/20 05:19 Lymph % (Auto) 11.3 % (13.4-35.0) L 07/04/20 18:46 Lipscomb % (Auto) 9.2 % (0.0-7.3) H 07/04/20 18:46 Eos % (Auto) 0.3 % (0.0-4.3) 07/04/20 18:46 Baso % (Auto) 0.2 % (0.0-1.8) 07/04/20 18:46 Lymph # (Auto) 0.9 K/mm3 (1.2-5.4) L 07/04/20 18:46 Lipscomb # (Auto) 0.7 K/mm3 (0.0-0.8) 07/04/20 18:46 Eos # (Auto) 0.0 K/mm3 (0.0-0.4) 07/04/20 18:46 Baso # (Auto) 0.0 K/mm3 (0.0-0.1) 07/04/20 18:46 Seg Neutrophils % 79.0 % (40.0-70.0) H 07/04/20 18:46 Seg Neutrophils # 6.3 K/mm3 (1.8-7.7) 07/04/20 18:46 VBG pH 7.283 (7.320-7.420) L 07/04/20 18:46 Sodium 133 mmol/L (137-145) L 07/11/20 10:32 Potassium 4.5 mmol/L (3.6-5.0) 07/11/20 10:32 Chloride 93.0 mmol/L (98-107) L 07/11/20 10:32 Carbon Dioxide 23 mmol/L (22-30) 07/11/20 10:32 Anion Gap 22 mmol/L 07/11/20 10:32 BUN 95 mg/dL (9-20) H 07/11/20 10:32 Creatinine 4.6 mg/dL (0.8-1.3) H 07/11/20 10:32 Estimated GFR 15 ml/min 07/11/20 10:32 BUN/Creatinine Ratio 21 % 07/11/20 10:32 Glucose 148 mg/dL (75-100) H 07/11/20 10:32 Calcium 9.3 mg/dL (8.4-10.2) 07/11/20 10:32 Magnesium 3.10 mg/dL (1.7-2.3) H 07/04/20 18:46 Total Bilirubin 0.60 mg/dL (0.1-1.2) 07/04/20 18:46 AST 23 units/L (5-40) 07/04/20 18:46 ALT 45 units/L (7-56) 07/04/20 18:46 Alkaline Phosphatase 558 units/L (35-129) H 07/04/20 18:46 Troponin T 0.048 ng/mL (0.00-0.029) H 07/04/20 18:46 NT-Pro-B Natriuret Pep 649.6 pg/mL (0-900) 07/04/20 18:46 Total Protein 9.2 g/dL (6.3-8.2) H 07/04/20 18:46 Albumin 4.7 g/dL (3.9-5) 07/04/20 18:46 Albumin/Globulin Ratio 1.0 % 07/04/20 18:46 Triglycerides 62 mg/dL (2-149) 07/04/20 18:46 Cholesterol 140 mg/dL (50-199) 07/04/20 18:46 LDL Cholesterol Direct 55 mg/dL (50-130) 07/04/20 18:46 HDL Cholesterol 95 mg/dL (40-59) H 07/04/20 18:46 Cholesterol/HDL Ratio 1.47 % 07/04/20 18:46 Urine Color Yellow (Yellow) 07/05/20 15:30 Urine Turbidity Cloudy (Clear) 07/05/20 15:30 Urine pH 5.0 (5.0-7.0) 07/05/20 15:30 Ur Specific [place] 1.012 (1.003-1.030) 07/05/20 15:30 Urine Protein 30 mg/dl mg/dL (Negative) 07/05/20 15:30 Urine Glucose (UA) Neg mg/dL (Negative) 07/05/20 15:30 Urine Ketones Neg mg/dL (Negative) 07/05/20 15:30 Urine Blood Mod (Negative) 07/05/20 15:30 Urine Nitrite Neg (Negative) 07/05/20 15:30 Urine Bilirubin Neg (Negative) 07/05/20 15:30 Urine Urobilinogen < 2.0 mg/dL (<2.0) 07/05/20 15:30 Ur Leukocyte Esterase Lg (Negative) 07/05/20 15:30 Urine WBC (Auto) > 182.0 /HPF (0.0-6.0) H 07/05/20 15:30 Urine RBC (Auto) 14.0 /HPF (0.0-6.0) 07/05/20 15:30 Urine Bacteria (Auto) 2+ /HPF (Negative) 07/05/20 15:30 Urine WBC Clumps 2+ /HPF 07/05/20 15:30 Urine Mucus Few /HPF 07/05/20 15:30 Urine Yeast (Budding) 3+ /HPF 07/05/20 15:30 Coronavirus (PCR) Negative (Negative) 07/06/20 Unknown Heath/IV: Voiding Method Incontinent Active Medications - Current Medications Current Medications: Generic Name Dose Route Start Last Admin Trade Name Freq PRN Reason Stop Dose Admin Acetaminophen 650 mg 07/05/20 12:12 07/10/20 06:04 Acetaminophen 325 Mg Tab PO 650 mg Q4H PRN Administration Pain MILD(1-3)/Fever >100.5/ROSS Albuterol 2.5 mg 07/05/20 12:12 Albuterol 2.5 Mg/3 Ml Nebu IH Q4HRT PRN Shortness Of Breath Calcitriol 0.25 mcg 07/06/20 10:00 07/11/20 09:15 Calcitriol 0.25 Mcg Cap PO 0.25 mcg DAILY MIMI Administration Cholecalciferol 1,000 unit 07/06/20 10:00 07/11/20 09:15 Cholecalciferol (Vit D3) 1000 Unit (25 Mcg) Tab PO 1,000 unit DAILY MIMI Administration Famotidine 20 mg 07/06/20 10:00 07/11/20 09:15 Famotidine 20 Mg Tab PO 20 mg QDAY MIMI Administration Lactated Ringer's 1,000 mls @ 100 mls/hr 07/08/20 09:00 07/10/20 19:27 Lactated Ringers IV 100 mls/hr DIRECT MIMI Administration Multivitamins 1 each 07/06/20 10:00 07/11/20 09:15 Multivitamins ,Therapeutic Tab PO 1 each DAILY MIMI Administration Ondansetron HCl 4 mg 07/05/20 12:12 Ondansetron 4 Mg/2 Ml Inj IV Q8H PRN Nausea And Vomiting Oxycodone/Acetaminophen 1 tab 07/05/20 12:15 07/12/20 03:52 Oxycodone /Acetaminophen 5-325mg Tab PO 1 tab Q6H PRN Administration Pain , Severe (7-10) Sodium Chloride 10 ml 07/05/20 22:00 07/11/20 21:38 Sodium Chloride 0.9% 10 Ml Flush Syringe IV 10 ml BID MIMI Administration Sodium Chloride 10 ml 07/05/20 12:12 Sodium Chloride 0.9% 10 Ml Flush Syringe IV PRN PRN LINE FLUSH Nutrition/Malnutrition Assess - Dietary Evaluation Nutrition/Malnutrition Findings: Nutrition Notes Start: 07/06/20 10:54 Freq: Status: Active Protocol: Document 07/06/20 10:54 AT (Rec: 07/06/20 11:11 AT [id number]) Co-Sign 07/06/20 10:54 MK Nutrition Notes Need for Assessment generated from: MD Order,death claim examiner,MST Initial or Follow up Brief Note Current Diagnosis CKD (stage V CKD),Hypertension Other Pertinent Diagnosis Ileostomy, GERD, Osteoarthritis, Ulcerative Colitis, NSTEMI Current Diet NPO [place] Body Weight (kg) 0 Subjective/Other Information Consult for ONS and MST of 3. Per chart, pt consumed 100% of dinner last night. Pt reports consuming 100% of breakfast today. Pt is cognizant of K, Phos, and protein rich foods. Pt reports no weight loss and does not appear to be at nutritional risk at this time. Pt reports adhering to a renal diet for years. Pt denies N/V/D. 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 Pt declined ONS in favor of meals . Food preferences recorded. Pt reports a normal appetite and declined further diet education. Nutrition Intervention Revisit per MD consult or patient Sign Off request:
[2020-07-12] MEDS: CHOLECALCIFEROL (VIT D3) 1000 UNIT (25 mcg) TAB PO SCH (09:08)
[2020-07-12] MEDS: MULTIVITAMINS ,THERAPEUTIC TAB PO SCH (09:09)
[2020-07-12] MEDS: CALCITRIOL 0.25 MCG CAP PO SCH (09:09)
[2020-07-12] MEDS: FAMOTIDINE 20 MG TAB PO SCH (09:10)
--- NOTE | 2020-07-12 09:16 | Progress Note ---
Assessment and Plan Impression: * Acute kidney injury secondary to prerenal azotemia due to volume depletion related to diuretics on CKD --SCr 2.9mg/dL in December 2019. --Renal ultrasound reviewed - no obstruction * Hypotension * Azotemia * Hypercalcemia, resolved with hydration * Acidosis, now with alkalosis * Hyponatremia * Elevated alkaline phosphatase * Dizziness Plan * Renal function is stable - SCr is trending down. He is asymptomatic - no symptoms of uremia or fluid overload. Recommend close nephrology follow up upon discharge. Patient is followed by [place] neph[facility] * No immediate indication for dialysis * Hold diuretics at discharge * Keep MAP>65 * Strict I/O * Renally dose medications * Avoid nephrotoxins * Renal diet * Elevated alkaline phosphatase - w/u as per primary Subjective Date of service: 07/12/20 Principal diagnosis: Acute kidney injury Interval history: Patient has no complaints today. Objective - Vital Signs Vital signs: Vital Signs - 12hr 07/11/20 07/12/20 21:34 05:41 Temperature 98.4 F 99.8 F H Pulse Rate 78 79 Respiratory 18 16 Rate Blood Pressure 104/70 115/68 O2 Sat by Pulse 99 97 Oximetry - Lab 07/08/20 05:19 07/12/20 07:45 Most recent lab results Calcium 9.3 mg/dL (8.4-10.2) 07/11/20 10:32 Magnesium 3.10 mg/dL (1.7-2.3) H 07/04/20 18:46 Medications & Allergies - Medications Allergies/Adverse Reactions: Allergies gabapentin Allergy (Verified 07/04/20 18:09) Rash pregabalin [From Lyrica] Allergy (Verified 07/04/20 18:09) Rash soy Allergy (Verified 07/04/20 18:09) Unknown Iodinated Contrast Media [Iodinated Contrast Media - IV Dye] Adverse Reaction (Verified 07/04/20 18:09) Swelling Home Medications: Home Medications Medication Instructions Recorded Confirmed Last Taken Type Cholecalciferol (Vitamin D3) 1,000 unit PO DAILY 10/06/17 07/05/20 07/04/20 History [Vitamin D3] Multivitamin with Folic Acid [One 400 mcg PO DAILY 10/06/17 07/05/20 10/05/17 History Daily Multivitamin Tablet] Acetaminophen [Acetaminophen TAB] 650 mg PO Q4H PRN #15 tablet 10/08/17 07/05/20 Unknown Rx Sodium Bicarbonate 650 mg PO BID #60 tablet 10/08/17 07/05/20 07/04/20 Rx calcitrioL [Rocaltrol] 0.25 mcg PO DAILY #30 capsule 10/08/17 07/05/20 07/03/20 Rx Ferrous Sulfate [Ferrous Sulfate 324 mg PO DAILY 07/05/20 07/05/20 07/04/20 H istory 324 MG] oxyCODONE /ACETAMINOPHEN [Percocet 1 tab PO Q6H PRN #10 tablet 07/08/20 Unknown Rx 5/325 mg] raNITIdine HCl [Zantac] 150 mg PO DAILY #30 tablet 07/08/20 Unknown Rx Active Medications: Generic Name Dose Route Start Last Admin Trade Name Freq PRN Reason Stop Dose Admin Acetaminophen 650 mg 07/05/20 12:12 07/10/20 06:04 Acetaminophen 325 Mg Tab PO 650 mg Q4H PRN Administration Pain MILD(1-3)/Fever >100.5/ROSS Albuterol 2.5 mg 07/05/20 12:12 Albuterol 2.5 Mg/3 Ml Nebu IH Q4HRT PRN Shortness Of Breath Calcitriol 0.25 mcg 07/06/20 10:00 07/12/20 09:09 Calcitriol 0.25 Mcg Cap PO 0.25 mcg DAILY MIMI Administration Cholecalciferol 1,000 unit 07/06/20 10:00 07/12/20 09:08 Cholecalciferol (Vit D3) 1000 Unit (25 Mcg) Tab PO 1,000 unit DAILY MIMI Administration Famotidine 20 mg 07/06/20 10:00 07/12/20 09:10 Famotidine 20 Mg Tab PO 20 mg QDAY MIMI Administration Lactated Ringer's 1,000 mls @ 100 mls/hr 07/08/20 09:00 07/10/20 19:27 Lactated Ringers IV 100 mls/hr DIRECT MIMI Administration Multivitamins 1 each 07/06/20 10:00 07/12/20 09:09 Multivitamins ,Therapeutic Tab PO 1 each DAILY MIMI Administration Ondansetron HCl 4 mg 07/05/20 12:12 Ondansetron 4 Mg/2 Ml Inj IV Q8H PRN Nausea And Vomiting Oxycodone/Acetaminophen 1 tab 07/05/20 12:15 07/12/20 03:52 Oxycodone /Acetaminophen 5-325mg Tab PO 1 tab Q6H PRN Administration Pain , Severe (7-10) Sodium Chloride 10 ml 07/05/20 22:00 07/12/20 09:11 Sodium Chloride 0.9% 10 Ml Flush Syringe IV 10 ml BID MIMI Administration Sodium Chloride 10 ml 07/05/20 12:12 Sodium Chloride 0.9% 10 Ml Flush Syringe IV PRN PRN LINE FLUSH
[2020-07-12 09:45] LABS: Calcium 9.8 mg/dL (8.4-10.2)
--- NOTE | 2020-07-12 10:13 | Discharge Summary ---
Providers - Providers Date of Admission: 07/05/20 12:12 Date of discharge: 07/12/20 Attending physician: LUCÍA ALVARADO MD 07/05/20 11:35 Consult to Physician [CONS] Urgent Comment: Consulting Provider: BERNICE HUANG Physician Instructions: Reason For Exam: ESRD dialysis v rehydration 07/06/20 09:40 Consult to Physician [CONS] Routine Comment: Consulting Provider: MARION STODDARD Physician Instructions: Reason For Exam: HD access 07/08/20 09:39 Occupational Therapy Evaluate and Treat [CONS] Routine Comment: Reason For Exam: debilty Physical Therapy Evaluation and Treat [CONS] Routine Comment: Reason For Exam: debility Hospitalization Reason for admission: Acute on chronic renal failure, debility, generalized weakness Condition: Serious Hospital course: 74 YO Male with CKD S/P Intermittent Dialysis, GERD, HTN, IA, OA, UC presents to ED for evaluation. Patient reports "I have been feeling weak". Patient states that he had experienced generalized weakness over the past 1 week with persistently worsening symptoms over the same timeframe. Patient notified his continuous improvement analyst who instructed him to seek further care at [facility]. Patient transported to [facility] via private vehicle for further care and evaluation of the aforementioned symptoms. The patient was seen and evaluated in the emergency department. All lab and imaging studies reviewed. The patient was found to have end-stage renal disease in need of dialysis. Nephrology team consulted in ED. Patient is pending dialysis access placement as per nephrology team recommendations. Patient denies fever, chills, chest pain, palpitation, productive cough, skin rash, recent ill contacts, or known exposure to COVID-19. Prior admission on 10/06/2017 reviewed. All medication listed at time of admission has been reconciled. Advanced care planning conducted in ED. Acute kidney injury on CKD stage IV secondary to vasomotor nephropathy Hyponatremia No dialysis access Severe peripheral neuropathy Acute cystitis Hypercalcemia Hypotension Otherwise hx of Hypertension Ulcerative Colitis Acute metabolic Acidosis Type 2 NSTEMI GERD Plan 06/07: Continue supportive care with gentle hydration, per continuous improvement analyst renal function showing slight improvement creatinine down to 7.1. Continue Percocets for pain control for possible neuropathic pain. Vascular input appreciated renal input no indication for immediate dialysis at this time. We will continue antibiotics for urine culture while awaiting culture results. Hyponatremia is improving and metabolic acidosis is also improving. Anticipate discharge in 24 hours 5/15: Creatinine continues to improve. Will anticipate discharge of diuretics which can be reevaluated for reinitiation with continuous improvement analyst outpatient. If okay with continuous improvement analyst patient can be discharged today. If discharged today will need home health with PT OT also at bedside commode. This has been ordered 07/09: Discontinue morphine secondary to nausea with vomiting. PT to obtain brace for the patient until he is able to retrieve his. Creatinine only came down to 5.3 will continue to monitor as it has not yet at his baseline. He continues to report severe pain in the lower extremity refused to ambulate with PT. We will recheck for DVT as patient has a history of prior DVT and has an IVC filter. No clear evidence of physical sign of thrombophlebitis. Continue pain control. 07/10: 74-year-old male admitted as noted above due to generalized weakness. Has severe peripheral neuropathy uses a leg brace. Very resistant to any physical therapy. Also resistant to a SNF states he will go home. Currently being managed for acute kidney injury on chronic kidney disease with stage IV. Not yet in end-stage renal disease. No indication for dialysis at this time nephrology awaiting improvement in renal and creatinine prior to discharge. V ascular input was noted on admission. Antibiotics completed Continue supportive care Continue current management Ward Nurse consulted for possible coverage DVT/GI prophy 07/11/2020 ; patient is very weak and resistant to any physical therapy and placement. Kidney function showed slight improvement. Nephrology is following the patient and recommend to continue monitor his renal function and e lectrolytes. Patient will be monitored and will be discharged once cleared by nephrology. Blood pressure is within normal limit. 07/12/2020; patient's creatinine was 4.6 this morning and sodium was 133. Patient was seen yesterday by nephrology and recommend inpatient care. Patient was evaluated by PT OT and recommend home health PT. discussed with nephrology and nephrology is okay to discharge the patient with close monitoring of his renal function at [facility]. Disposition: [id number] HOME UNDER HOME [facility] Final Discharge Diagnosis (Prints w/discharge instructions): Acute on chronic renal failure. Generalized weakness. Debility Time spent for discharge: 34 minutes - Discharge Diagnoses (1) [id number] renal failure Status: Acute Qualifiers: Acute renal failure type: unspecified Chronic kidney disease stage: stage 4 (severe) Qualified Code(s): N17.9 - Acute kidney failure, unspecified; N18.4 - Chronic kidney disease, stage 4 (severe) (2) Hyponatremia Status: Acute (3) Metabolic acidosis, increased anion gap Status: Acute Core Measure Documentation - Palliative Care Palliative Care/ Comfort Measures: Not Applicable - Core Measures Any of the following diagnoses?: none Exam - Physical Exam Narrative exam: Not in cardiopulmonary distress. The patient appeared well nourished and normally developed. Vital signs as documented. Head exam is unremarkable. No scleral icterus . Neck is without jugular venous distension, thyromegaly, or carotid bruits. Lungs are clear to auscultation. Cardiac exam reveals regular rate and Rhythm. Abdominal exam reveals normal bowel sounds, nontender, no organomegaly. Extremities are nonedematous and both femoral and pedal pulses are normal. 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 No focal weakness. - Constitutional Vitals: Temp Pulse Resp BP Pulse Ox 99.8 F H 79 16 115/68 97 07/12/20 05:41 07/12/20 05:41 07/12/20 05:41 07/12/20 05:41 07/12/20 05:41 Plan Activity: advance as tolerated Weight Bearing Status: Weight Bear as Tolerated Diet: renal Additional Instructions: Follow at [facility], nephrology Follow up with: DR SAL [Other] - 3-5 Days Prescriptions: oxyCODONE /ACETAMINOPHEN [Percocet 5/325 mg] 1 tab PO Q6H PRN #10 tablet PRN Reason: Pain , Severe (7-10) raNITIdine HCl [Zantac] 150 mg PO DAILY #30 tablet
[2020-07-12 13:49] VITALS: BP 96/64
== END 2020-07-12 18:06 | disposition home health service (06) | DRG 682 ==
LOC: ED 17:49 → 3A 07-05 12:12
PROVIDERS: ADMIT Internal Medicine; ATTEND Internal Medicine
DX: N17.0 Acute kidney failure with tubular necrosis (principal); I21.A1 Myocardial infarction type 2; E87.2 Acidosis; N30.00 Acute cystitis without hematuria; K51.90 Ulcerative colitis, unspecified, without complications; I12.0 Hypertensive chronic kidney disease with stage 5 chronic kidney disease or end stage renal disease; E87.1 Hypo-osmolality and hyponatremia; N18.4 Chronic kidney disease, stage 4 (severe); Z20.822 Contact with and (suspected) exposure to COVID-19; Z88.8 Allergy status to other drugs, medicaments and biological substances; Z91.041 Radiographic dye allergy status; K21.9 Gastro-esophageal reflux disease without esophagitis; Z86.718 Personal history of other venous thrombosis and embolism; Z79.01 Long term (current) use of anticoagulants; I25.2 Old myocardial infarction; M19.90 Unspecified osteoarthritis, unspecified site; J44.9 Chronic obstructive pulmonary disease, unspecified; I71.4 Abdominal aortic aneurysm, without rupture; Z99.2 Dependence on renal dialysis; Z90.49 Acquired absence of other specified parts of digestive tract; Z82.49 Family history of ischemic heart disease and other diseases of the circulatory system; Z83.3 Family history of diabetes mellitus; I95.9 Hypotension, unspecified; E83.52 Hypercalcemia; I25.10 Atherosclerotic heart disease of native coronary artery without angina pectoris; E86.1 Hypovolemia; R74.8 Abnormal levels of other serum enzymes; G62.9 Polyneuropathy, unspecified; B37.9 Candidiasis, unspecified
CPT/HCPCS: 36415; 71046; 76700; 76770; 80048; 80053; 80061; 81001; 82805; 83735; 83880; 84484; 85025; 85027; 87086; 93005; 93970; 96365; G0378; J2270; J7030; J7070; J7120; U0003